=== PATIENT | female | born 1935 | race Caucasian/White ===

== ENCOUNTER 2021-10-30 07:42 | Emergency (ER) | payer OTHER ==
--- OUTSIDE RECORDS SUMMARY | 2021-10-30 07:48 | XMS REPORT | Continuity of Care Document ---
:1935 Author Organization [facility] t Address [address] [place] [address] Care Team Providers Name Role Phone Aleisha GREENBERG, Mindi Primary Care Physician Marcus RN, T Attending Clinician Unavailable Only, Db Test Attending Clinician Unavailable Sonny LING Attending Clinician SONNY Attending Clinician Unavailable Doctor Unassigned, Name Attending Clinician Unavailable Mindi MORAES Attending Clinician Unavailable Mindi REYES Attending Clinician Unavailable Uzma Nino Attending Clinician Amy PHD, L Attending Clinician Amita REYES Attending Clinician Unavailable Aleisha GREENBERG, Mindi Attending Clinician Miguel A Odell MD Attending Clinician MIGUEL A ODELL Attending Clinician Unavailable MIGUEL A ODELL Attending Clinician Unavailable Lab, Fam Pob I Attending Clinician Unavailable Maria E CAMARAP, F Attending Clinician Levar JJSW, D Attending Clinician Singer LUGO Attending Clinician Xavier CHRISTOPHER Attending Clinician Unavailable Kamryn LUGO Attending Clinician KAMRYN Attending Clinician Unavailable KAMRYN Attending Clinician Unavailable Anene EAR SPECIALIST Attending Clinician DR Lavern IBARRA Attending Clinician Unavailable DR Ruben HONEYCUTT Attending Clinician Unavailable KAMRYN Admitting Clinician Unavailable DR Lavern IBARRA Admitting Clinician Unavailable DR Ruben HONEYCUTT Admitting Clinician Unavailable Payers Payer Name Policy Type Policy Number Effective Date Expiration Date Lavern crouch [employer] MEDICARE ADV [id number] 2018 00:00:00 [employer] TRADITIONAL [id number] 2016 00:00:00 Problems Condition Condition Condition Status Onset Resolution Last Treating Co mments Source Name Details Category Date Date Treatment Clinician Date Vitamin D Vitamin D Disease Active Uni vers deficiency deficiency 5-12 it y of 00:00: [place] [facility] Hyperchole Hyperchole Disease Active U nivers sterolemia sterolemia 5-12 it y of 00:00: [place] 00 [facility] Dementia Dementia Disease Active Unive rs without without 5-09 ity of behavioral behavioral 00:[place] disturbanc disturbanc 00 Me dical e, e, Branch unspecifie unspecifie d dementia d dementia type type Cerebrovas Cerebrovas Disease Active U nivers cular cular 5-05 ity of small small 00:00: [place] vessel vessel 00 Medical disease disease Branch Malignant Malignant Disease Active Uni vers neoplasm neoplasm 9-17 ity of of lung of lung 00:00: [place] 00 Medical [facility] Pancreas Pancreas Disease Active Unive rs cyst cyst 8-01 ity of 00:00: [place] 00 Medical [facility] Lesion of Lesion of Disease Active Uni vers pancreas pancreas 8-01 ity of 00:00: [place] 00 [facility] Fatty Fatty Disease Active Univers liver liver 7-26 ity of 00:00: [place] 00 [facility] Elevated Elevated Disease Active Unive rs lipase lipase 7-15 ity of 00:00: [place] 00 [facility] History of History of Disease Active U nivers lung lung 7-15 ity of cancer cancer 00:00: [place] 00 [facility] Abnormal Abnormal Disease Active Unive rs chest CT chest CT 7-15 ity of 00:00: [place] 00 [facility] Adjustment Adjustment Disease Active 2018- U nivers insomnia insomnia 7-15 ity of 00:00: [place] 00 [facility] Memory Memory Disease Active Univers disturbanc disturbanc 7-15 it y of e e 00:00: [place] [facility] Palpitatio Palpitatio Disease Active U nivers ns ns 7-15 ity of 00:00: [place] [facility] Elevated Elevated Disease Active Unive rs lipase lipase 7-15 ity of 00:00: [place] [facility] Abnormal Abnormal Disease Active Unive rs chest CT chest CT 7-15 ity of 00:00: [place] [facility] Adjustment Adjustment Disease Active U nivers insomnia insomnia 7-15 ity of 00:00: [place] [facility] History of History of Disease Active U nivers lung lung 7-15 ity of cancer cancer 00:00: [place] [facility] Essential Essential Disease Active Uni vers hypertensi hypertensi 5-28 it y of on on 00:00: [place] [address] Medical Branch Dizziness Dizziness Disease Resolve 2019-04-18 2019-04-19 Univers d 03-01 00:00:00 04:34:46 ity of 00:00: [place] [facility] UTI UTI Disease Resolve 2019-04-18 2019-04-19 Univers (urinary (urinary d 03-01 00:00:00 04:34:38 it y of tract tract 00:00: [place] infection) infection) 00 Tn dical Branch Allergies, Adverse Reactions, Alerts Allergy Allergy Status Severity Reaction(s) Onset Inactive Treating Comm ents Source Name Type Date Date Clinician Gemiflox Propensi Active Anaphylaxis U nivers acin ty to 9-17 ity of adverse 00:00: [place] reaction 00 Medical s Branch GEMIFLOX DRUG Active High Anaphylaxis Uni vers ACIN INGREDI 9-17 ity of 00:00: [place] [address] Medical Branch NO KNOWN Drug Active Univers ALLERGIE Class ity of [facility] Social History Social Habit Start Date Stop Date Quantity Comments Source Exposure to Not sure [facility] SARS-CoV-2 [place] [facility] (event) Branch Alcohol intake 2021-02-13 2021-02-13 Current University of 00:00:00 00:00:00 non-drinker of [facility] alcohol Branch (finding) Tobacco use and 2019-03-01 2019-03-01 Never used Universit y of exposure 00:00:00 00:00:00 [facility] Sex Ass[birth year] At [birth year] Universit y of 00:00:00 00:00:00 [facility] Smoking Status Start Date Stop Date Source Never smoker [facility] Medications Ordered Filled Start Stop Current Ordering Indication Dosage Frequency Signature Comments Components Source Medication Medication Date Date Medication? Clinician (SIG) Name Name cholecalcif Yes [id number] 1000U Take 1 Univers ajith, 5-12 tablet by ity of vitamin D3, 00:00: mouth [place] (VITAMIN 00 daily. Medical D3) 25 mcg Take with Bran ch (1,000 food. unit) tablet rosuvastati Yes [id number] 10mg Take 1 Univers n 10 mg 5-12 tablet by ity of tablet 00:00: mouth at [place] 00 bedtime. Medical Branch cholecalcif Yes [id number] 1000U Take 1 Univers ajith, 5-12 tablet by ity of vitamin D3, 00:00: mouth [place] (VITAMIN 00 daily. Medical D3) 25 mcg Take with Bran ch (1,000 food. unit) tablet rosuvastati Yes [id number] 10mg Take 1 Univers n 10 mg 5-12 tablet by ity of tablet 00:00: mouth at [place] [address] bedtime. Medical Branch cholecalcif Yes [id number] 1000U Take 1 Univers ajith, 5-12 tablet by ity of vitamin D3, 00:00: mouth [place] (VITAMIN 00 daily. Medical D3) 25 mcg Take with Bran ch (1,000 food. unit) tablet rosuvastati Yes [id number] 10mg Take 1 Univers n 10 mg 5-12 tablet by ity of tablet 00:00: mouth at [place] [address] bedtime. Medical Branch cholecalcif Yes [id number] 1000U Take 1 Univers ajith, 5-12 tablet by ity of vitamin D3, 00:00: mouth [place] (VITAMIN 00 daily. Medical D3) 25 mcg Take with Bran ch (1,000 food. unit) tablet rosuvastati Yes [id number] 10mg Take 1 Univers n 10 mg 5-12 tablet by ity of tablet 00:00: mouth at [place] [address] bedtime. Medical Branch cholecalcif Yes [id number] 1000U Take 1 Univers ajith, 5-12 tablet by ity of vitamin D3, 00:00: mouth [place] (VITAMIN 00 daily. Medical D3) 25 mcg Take with Bran ch (1,000 food. unit) tablet rosuvastati 0 Yes [id number] 10mg Take 1 Univers n 10 mg 5-12 tablet by ity of tablet 00:00: mouth at [place] 00 bedtime. Medical Branch cholecalcif 0 Yes [id number] 1000U Take 1 Univers ajith, 5-12 tablet by ity of vitamin D3, 00:00: mouth [place] (VITAMIN 00 daily. Medical D3) 25 mcg Take with Bran ch (1,000 food. unit) tablet rosuvastati 0 Yes [id number] 10mg Take 1 Univers n 10 mg 5-12 tablet by ity of tablet 00:00: mouth at [place] 00 bedtime. Medical Branch cholecalcif Yes [id number] 1000U Take 1 Univers ajith, 5-12 tablet by ity of vitamin D3, 00:00: mouth [place] (VITAMIN 00 daily. Medical D3) 25 mcg Take with Bran ch (1,000 food. unit) tablet rosuvastati Yes [id number] 10mg Take 1 Univers n 10 mg 5-12 tablet by ity of tablet 00:00: mouth at [place] 00 bedtime. Medical Branch cholecalcif 0 Yes [id number] 1000U Take 1 Univers ajith, 5-12 tablet by ity of vitamin D3, 00:00: mouth [place] (VITAMIN 00 daily. Medical D3) 25 mcg Take with Bran ch (1,000 food. unit) tablet rosuvastati 0 Yes [id number] 10mg Take 1 Univers n 10 mg 5-12 tablet by ity of tablet 00:00: mouth at [place] 00 bedtime. Medical Branch cholecalcif 0 Yes [id number] 1000U Take 1 Univers ajith, 5-12 tablet by ity of vitamin D3, 00:00: mouth [place] (VITAMIN 00 daily. Medical D3) 25 mcg Take with Bran ch (1,000 food. unit) tablet rosuvastati 0 Yes [id number] 10mg Take 1 Univers n 10 mg 5-12 tablet by ity of tablet 00:00: mouth at [place] 00 bedtime. Medical Branch metoprolol Yes 25mg Take 25 mg U nivers succinate 5-11 by mouth ity of XL 25 mg 24 18:19: [place]. [place] tablet 17 [facility] metoprolol Yes 25mg Take 25 mg U nivers succinate 5-11 by mouth ity of XL 25 mg 24 18:19: [place]. [place] 17 [facility] metoprolol Yes 25mg Take 25 mg U nivers succinate 5-11 by mouth ity of XL 25 mg 24 18:19: daily. [place] tablet 17 [facility] metoprolol Yes 25mg Take 25 mg U nivers succinate 5-11 by mouth ity of XL 25 mg 24 18:19: daily. [place] tablet 17 [facility] metoprolol Yes 25mg Take 25 mg U nivers succinate 5-11 by mouth ity of XL 25 mg 24 18:19: daily. [place] tablet 17 [facility] metoprolol Yes 25mg Take 25 mg U nivers succinate 5-11 by mouth ity of XL 25 mg 24 18:19: daily. [place] tablet 17 [facility] metoprolol Yes 25mg Take 25 mg U nivers succinate 5-11 by mouth ity of XL 25 mg 24 18:19: daily. [place] tablet 17 [facility] metoprolol Yes 25mg Take 25 mg U nivers succinate 5-11 by mouth ity of XL 25 mg 24 18:19: daily. [place] tablet 17 [facility] metoprolol Yes 25mg Take 25 mg U nivers succinate 5-11 by mouth ity of XL 25 mg 24 13:19: daily. [place] tablet 17 [facility] metoprolol Yes 25mg Take 25 mg U nivers succinate 5-11 by mouth ity of XL 25 mg 24 13:19: daily. [place] tablet 17 [facility] metoprolol Yes 25mg Take 25 mg U nivers succinate 5-11 by mouth ity of XL 25 mg 24 13:19: daily. [place] tablet 17 [facility] rivastigmin Yes [id number] 1{patch Apply 1 Univers e 4.6 mg/24 5-11 } Patch to ity of hour patch 00:00: skin [place] 00 daily. Medical Branch rivastigmin Yes [id number] 1{patch Apply 1 Univers e 4.6 mg/24 5-11 } Patch to ity of hour patch 00:00: skin [place] 00 daily. Medical Branch rivastigmin Yes [id number] 1{patch Apply 1 Univers e 4.6 mg/24 5-11 } Patch to ity of hour patch 00:00: skin [place] 00 daily. Medical Branch rivastigmin Yes [id number] 1{patch Apply 1 Univers e 4.6 mg/24 5-11 } Patch to ity of hour patch 00:00: skin [place] 00 daily. Medical Branch rivastigmin Yes [id number] 1{patch Apply 1 Univers e 4.6 mg/24 5-11 } Patch to ity of hour patch 00:00: skin [place] 00 daily. Medical Branch rivastigmin Yes [id number] 1{patch Apply 1 Univers e 4.6 mg/24 5-11 } Patch to ity of hour patch 00:00: skin [place] 00 daily. Medical Branch rivastigmin Yes [id number] 1{patch Apply 1 Univers e 4.6 mg/24 5-11 } Patch to ity of hour patch 00:00: skin [place] 00 daily. Medical Branch rivastigmin Yes [id number] 1{patch Apply 1 Univers e 4.6 mg/24 5-11 } Patch to ity of hour patch 00:00: skin [place] 00 daily. Medical Branch rivastigmin Yes [id number] 1{patch Apply 1 Univers e 4.6 mg/24 5-11 } Patch to ity of hour patch 00:00: skin [place] 00 daily. Medical Branch rivastigmin Yes [id number] 1{patch Apply 1 Univers e 4.6 mg/24 5-11 } Patch to ity of hour patch 00:00: skin [place] 00 daily. Medical Branch rivastigmin Yes [id number] 1{patch Apply 1 Univers e 4.6 mg/24 5-11 } Patch to ity of hour patch 00:00: skin [place] 00 daily. Medical Branch acetaminoph 2020- No 1000mg 1,000 mg, Univers en 01-28 Oral, ity of (TYLENOL) 17:15: 16:19 ONCE, 1 [place] tablet 00 :[place] dose, Mon Medical 1,000 mg 01/28/21 at [facility] h 1215, Routine ibuprofen Yes [id number] 600mg Take 1 U nivers 600 mg - tablet by ity of tablet 00:00: mouth [place] 00 every 6 Medical (six) Branch hours as needed for Pain (scale 4-6). ibuprofen Yes [id number] 600mg Take 1 U nivers 600 mg - tablet by ity of tablet 00:00: mouth [place] 00 every 6 Medical (six) Branch hours as needed for Pain (scale 4-6). ibuprofen Yes [id number] 600mg Take 1 U nivers 600 mg -26 tablet by ity of tablet 00:00: mouth [place] 00 every 6 Medical (six) Branch hours as needed for Pain (scale 4-6). ibuprofen 2020- No [id number] 600mg Take 1 Univers 600 mg 01-28 tablet by ity of tablet 00:00: 00:00 mouth [place] 00 :00 every 6 Medical (six) Branch hours as needed for Pain (scale 4-6). ibuprofen 2020- No [id number] 600mg Take 1 Univers 600 mg 01-28- tablet by ity of tablet 00:00: 00:00 mouth [place] 00 :00 every 6 Medical (six) Branch hours as needed for Pain (scale 4-6). methocarbam Yes 500mg 500 mg, Un daina oL -18 Oral, QID, ity of (ROBAXIN) 17:00: First dose [place] tablet 500 00 on [facility] mg 12/20/20 at Branch 1200, Until Discontinu ed, Routine ketorolac 2020- No 30mg 30 mg, Unive rs (TORADOL) 18 03-18 Intramuscu ity of injection 16:30: 15:25 [place], ONCE, [place] 30 mg 00 :00 1 dose, Medical [place] Branch 12/20/20 at 1130, SHANTA
Fa culty member approving Restricted medication : PAUL THOMAS naproxen 2020-0 Yes [id number] 550mg Take 1 Un dain[place] sodium 3-18 tablet by ity of (ANAPROX 00:00: mouth 2 [place] DS) 550 mg 00 (two) Medical tablet times Branch daily with meals. naproxen 2020-0 Yes [id number] 550mg Take 1 Un dain[place] sodium 3-18 tablet by ity of (ANAPROX 00:00: mouth 2 [place] DS) 550 mg 00 (two) Medical tablet times Branch daily with meals. naproxen 0 Yes [id number] 550mg Take 1 Un dain[place] sodium 3-18 tablet by ity of (ANAPROX 00:00: mouth 2 [place] DS) 550 mg 00 (two) Medical tablet times Branch daily with meals. naproxen 0 Yes [id number] 550mg Take 1 Un daina sodium 3-18 tablet by ity of (ANAPROX 00:00: mouth 2 [place] DS) 550 mg 00 (two) Medical tablet times Branch daily with meals. naproxen 0 Yes [id number] 550mg Take 1 Un dain[place] sodium 3-18 tablet by ity of (ANAPROX 00:00: mouth 2 [place] DS) 550 mg 00 (two) Medical tablet times Branch daily with meals. naproxen 0 Yes [id number] 550mg Take 1 Un diana sodium 3-18 tablet by ity of (ANAPROX 00:00: mouth 2 [place] DS) 550 mg 00 (two) Medical tablet times Branch daily with meals. naproxen 0 Yes [id number] 550mg Take 1 Un daina sodium 3-18 tablet by ity of (ANAPROX 00:00: mouth 2 [place] DS) 550 mg 00 (two) Medical tablet times Branch daily with meals. naproxen 2020-0 Yes [id number] 550mg Take 1 Un daina sodium 3-18 tablet by ity of (ANAPROX 00:00: mouth 2 [place] DS) 550 mg 00 (two) Medical tablet times Branch daily with meals. naproxen 0 Yes [id number] 550mg Take 1 Un daina sodium 3-18 tablet by ity of (ANAPROX 00:00: mouth 2 [place] DS) 550 mg 00 (two) Medical tablet times Branch daily with meals. naproxen 2020-0 Yes [id number] 550mg Take 1 Un daina sodium 3-18 tablet by ity of (ANAPROX 00:00: mouth 2 [place] DS) 550 mg 00 (two) Medical tablet times Branch daily with meals. naproxen 2020- No [id number] 550mg Take 1 U nivers sodium 3-18 04-29 tablet by ity of (ANAPROX 00:00: 00:00 mouth 2 [place] DS) 550 mg 00 :00 (two) Medical tablet times Branch daily with meals. naproxen 2020- No [id number] 550mg Take 1 U nivers sodium 3-18 04-29 tablet by ity of (ANAPROX 00:00: 00:00 mouth 2 [place] DS) 550 mg 00 :00 (two) Medical tablet times Branch daily with meals. methocarbam 2020- No [id number] 500mg Take 1 Univers oL 500 mg 3-18 03-24 tablet by ity of tablet 00:00: 04:59 mouth 3 [place] 00 :00 (three) Medical times Branch daily for 5 days. benzonatate 2019-2019- No [id number] 100mg Take 1 Univers (TESSALON 1 02-11 capsule by ity of GERTRUDE) 100 00:00: 05:59 mouth 3 [place] mg capsule 00 :00 (three) Medica l times Branch daily for 14 days. benzonatate 2019-2019- No [id number] 100mg Take 1 Univers (TESSALON 1-27 02-11 capsule by itdick of GERTRUDE) 100 00:00: 05:59 mouth 3 [place] mg capsule 00 :00 (three) Medica l times Branch daily for 14 days. benzonatate 2019-2019- No [id number] 100mg Take 1 Univers (TESSALON 1-27 02-11 capsule by itdick of GERTRUDE) 100 00:00: 05:59 mouth 3 [place] mg capsule 00 :00 (three) Medica l times Branch daily for 14 days. methylPREDN 2019-2019- No [id number] Take by [facility] [place] [facility] 4 10-31 02-03 mouth ity of mg tablets 00:00: 05:59 SEE-INSTRU [place] 00 :00 CTIONS for Medical 6 days. Branch follow package directions methylPREDN 2019-0 2020- No [id number] Take by Univers ISolone 4 10-31 mouth ity of mg tablets 00:00: 05:59 SEE-INSTRU [place] 00 :00 CTIONS for Medical 6 days. Branch follow package directions methylPREDN 2020- No [id number] Take by Univers ISolone 4 10-31 mouth ity of mg tablets 00:00: 05:59 SEE-INSTRU [place] 00 :00 CTIONS for Medical 6 days. Branch follow package directions magnesium 2018- Yes [id number] 1{tbl} Take 1 Univers oxide 400 9-18 tablet by ity o f mg 00:00: mouth [place] magnesium 00 daily. Medical Tab Branch magnesium 2018- Yes [id number] 1{tbl} Take 1 Univers oxide 400 9-18 tablet by ity o f mg 00:00: mouth [place] magnesium 00 daily. Medical Tab Branch magnesium 2018- Yes [id number] 1{tbl} Take 1 Univers oxide 400 9-18 tablet by ity o f mg 00:00: mouth [place] magnesium 00 daily. Medical Tab Branch magnesium 2018- Yes [id number] 1{tbl} Take 1 Univers oxide 400 9-18 tablet by ity o f mg 00:00: mouth [place] magnesium 00 daily. Medical Tab Branch magnesium 2018- Yes [id number] 1{tbl} Take 1 Univers oxide 400 9-18 tablet by ity o f mg 00:00: mouth [place] magnesium 00 daily. Medical Tab Branch magnesium 2018- Yes [id number] 1{tbl} Take 1 Univers oxide 400 9-18 tablet by ity o f mg 00:00: mouth [place] magnesium 00 daily. Medical Tab Branch magnesium 2018-0 Yes [id number] 1{tbl} Take 1 Univers oxide 400 9-18 tablet by ity o f mg 00:00: mouth [place] magnesium 00 daily. Medical Tab Branch magnesium 2019-0 Yes [id number] 1{tbl} Take 1 Univers oxide 400 9-18 tablet by ity o f mg 00:00: mouth [place] magnesium 00 daily. Medical Tab Branch magnesium 2018-0 Yes [id number] 1{tbl} Take 1 Univers oxide 400 9-18 tablet by ity o f mg 00:00: mouth [place] magnesium 00 daily. Medical Tab Branch magnesium 2018-0 Yes [id number] 1{tbl} Take 1 Univers oxide 400 9-18 tablet by ity o f mg 00:00: mouth [place] magnesium 00 daily. Medical Tab Branch magnesium 2019-0 Yes [id number] 1{tbl} Take 1 Univers oxide 400 9-18 tablet by ity o f mg 00:00: mouth [place] magnesium 00 daily. Medical Tab Branch magnesium 2018-0 Yes [id number] 1{tbl} Take 1 Univers oxide 400 9-18 tablet by ity o f mg 00:00: mouth [place] magnesium 00 daily. Medical Tab Branch magnesium 2019-0 Yes [id number] 1{tbl} Take 1 Univers oxide 400 9-18 tablet by ity o f mg 00:00: mouth [place] magnesium 00 daily. Medical Tab Branch magnesium 2019-0 Yes [id number] 1{tbl} Take 1 Univers oxide 400 9-18 tablet by ity o f mg 00:00: mouth [place] magnesium 00 daily. Medical Tab Branch magnesium 2018-0 Yes [id number] 1{tbl} Take 1 Univers oxide 400 9-18 tablet by ity o f mg 00:00: mouth [place] magnesium 00 daily. Medical Tab Branch magnesium 2018-0 Yes [id number] 1{tbl} Take 1 Univers oxide 400 9-18 tablet by ity o f mg 00:00: mouth [place] magnesium 00 daily. Medical Tab Branch magnesium 2018-0 Yes [id number] 1{tbl} Take 1 Univers oxide 400 9-18 tablet by ity o f mg 00:00: mouth [place] magnesium 00 daily. Medical Tab Branch magnesium 2019-0 Yes [id number] 1{tbl} Take 1 Univers oxide 400 9-18 tablet by ity o f mg 00:00: mouth [place] magnesium 00 daily. Medical Tab Branch magnesium 2019-0 Yes [id number] 1{tbl} Take 1 Univers oxide 400 9-18 tablet by ity o f mg 00:00: mouth [place] magnesium 00 daily. Medical Tab Branch magnesium 2019-0 Yes [id number] 1{tbl} Take 1 Univers oxide 400 9-18 tablet by ity o f mg 00:00: mouth [place] magnesium 00 daily. Medical Tab Branch magnesium 2019-0 Yes [id number] 1{tbl} Take 1 Univers oxide 400 9-18 tablet by ity o f mg 00:00: mouth [place] magnesium 00 daily. Medical Tab Branch magnesium 2019-0 Yes [id number] 1{tbl} Take 1 Univers oxide 400 9-18 tablet by ity o f mg 00:00: mouth [place] magnesium 00 daily. [facility] Branch magnesium 2018- Yes [id number] 1{tbl} Take 1 Univers oxide 400 9-18 tablet by ity o f mg 00:00: mouth [place] magnesium 00 daily. [facility] Branch magnesium 2018- Yes [id number] 1{tbl} Take 1 Univers oxide 400 9-18 tablet by ity o f mg 00:00: mouth [place] magnesium 00 daily. [facility] Branch magnesium 2018-2020- No [id number] 1{tbl} Take 1 Univers oxide 400 9-18 04-29 tablet by ity of mg 00:00: 00:00 mouth [place] magnesium 00 :00 daily. [facility] Branch magnesium 2018-2020- No [id number] 1{tbl} Take 1 Univers oxide 400 9-18 04-29 tablet by ity of mg 00:00: 00:00 mouth [place] magnesium 00 :00 daily. [facility] Branch traZODONE Yes [id number] 25mg Take 0.5-1 Univers 50 mg 7-15 tablets by ity of tablet 00:00: mouth at [place] [address] bedtime. [facility] traZODONE Yes [id number] 25mg Take 0.5-1 Univers 50 mg 7-15 tablets by ity of tablet 00:00: mouth at [place] 00 bedtime. [facility] traZODONE Yes [id number] 25mg Take 0.5-1 Univers 50 mg 7-15 tablets by ity of tablet 00:00: mouth at [place] 00 bedtime. [facility] traZODONE 2018- Yes [id number] 25mg Take 0.5-1 Univers 50 mg 7-15 tablets by ity of tablet 00:00: mouth at [place] 00 bedtime. [facility] Branch traZODONE Yes [id number] 25mg Take 0.5-1 Univers 50 mg 7-15 tablets by ity of tablet 00:00: mouth at [place] 00 bedtime. [facility] traZODONE 2018- Yes [id number] 25mg Take 0.5-1 Univers 50 mg 7-15 tablets by ity of tablet 00:00: mouth at [place] [address] bedtime. [facility] traZODONE 2018- Yes [id number] 25mg Take 0.5-1 Univers 50 mg 7-15 tablets by ity of tablet 00:00: mouth at [place] [address] bedtime. [facility] Branch traZODONE 2019-0 Yes [id number] 25mg Take 0.5-1 Univers 50 mg 7-15 tablets by ity of tablet 00:00: mouth at [place] [address] bedtime. [facility] Branch traZODONE 2018-0 Yes [id number] 25mg Take 0.5-1 Univers 50 mg 7-15 tablets by ity of tablet 00:00: mouth at [place] [address] bedtime. [facility] Branch traZODONE 2018-0 Yes [id number] 25mg Take 0.5-1 Univers 50 mg 7-15 tablets by ity of tablet 00:00: mouth at [place] [address] bedtime. [facility] Branch traZODONE 0 Yes [id number] 25mg Take 0.5-1 Univers 50 mg 7-15 tablets by ity of tablet 00:00: mouth at [place] [address] bedtime. [facility] traZODONE 2018-0 Yes [id number] 25mg Take 0.5-1 Univers 50 mg 7-15 tablets by ity of tablet 00:00: mouth at [place] [address] bedtime. [facility] Branch traZODONE 2018-0 Yes [id number] 25mg Take 0.5-1 Univers 50 mg 7-15 tablets by ity of tablet 00:00: mouth at [place] [address] bedtime. [facility] Branch traZODONE 2018-0 Yes [id number] 25mg Take 0.5-1 Univers 50 mg 7-15 tablets by ity of tablet 00:00: mouth at [place] [address] bedtime. [facility] Branch traZODONE 2018-0 Yes [id number] 25mg Take 0.5-1 Univers 50 mg 7-15 tablets by ity of tablet 00:00: mouth at [place] [address] bedtime. [facility] Branch traZODONE 2018-0 Yes [id number] 25mg Take 0.5-1 Univers 50 mg 7-15 tablets by ity of tablet 00:00: mouth at [place] [address] bedtime. [facility] Branch traZODONE 2018-0 Yes [id number] 25mg Take 0.5-1 Univers 50 mg 7-15 tablets by ity of tablet 00:00: mouth at [place] [address] bedtime. [facility] Branch traZODONE 2018-0 Yes [id number] 25mg Take 0.5-1 Univers 50 mg 7-15 tablets by ity of tablet 00:00: mouth at [place] [address] bedtime. [facility] Branch traZODONE 2019-0 Yes [id number] 25mg Take 0.5-1 Univers 50 mg 7-15 tablets by ity of tablet 00:00: mouth at [place] [address] bedtime. [facility] Branch traZODONE 2018-0 Yes [id number] 25mg Take 0.5-1 Univers 50 mg 7-15 tablets by ity of tablet 00:00: mouth at [place] [address] bedtime. [facility] Branch traZODONE 2018-0 Yes [id number] 25mg Take 0.5-1 Univers 50 mg 7-15 tablets by ity of tablet 00:00: mouth at [place] [address] bedtime. [facility] traZODONE 2018-0 Yes [id number] 25mg Take 0.5-1 Univers 50 mg 7-15 tablets by ity of tablet 00:00: mouth at [place] [address] bedtime. [facility] traZODONE 2018-0 Yes [id number] 25mg Take 0.5-1 Univers 50 mg 7-15 tablets by ity of tablet 00:00: mouth at [place] [address] bedtime. [facility] traZODONE 2018-0 Yes [id number] 25mg Take 0.5-1 Univers 50 mg 7-15 tablets by ity of tablet 00:00: mouth at [place] [address] bedtime. [facility] traZODONE 2018-0 Yes [id number] 25mg Take 0.5-1 Univers 50 mg 7-15 tablets by ity of tablet 00:00: mouth at [place] [address] bedtime. [facility] traZODONE 2018-0 Yes [id number] 25mg Take 0.5-1 Univers 50 mg 7-15 tablets by ity of tablet 00:00: mouth at [place] [address] bedtime. [facility] traZODONE 2018-0 Yes [id number] 25mg Take 0.5-1 Univers 50 mg 7-15 tablets by ity of tablet 00:00: mouth at [place] [address] bedtime. [facility] traZODONE 2019-0 Yes [id number] 25mg Take 0.5-1 Univers 50 mg 7-15 tablets by ity of tablet 00:00: mouth at [place] [address] bedtime. [facility] traZODONE 2018-0 Yes [id number] 25mg Take 0.5-1 Univers 50 mg 7-15 tablets by ity of tablet 00:00: mouth at [place] [address] bedtime. [facility] traZODONE 2018-0 Yes [id number] 25mg Take 0.5-1 Univers 50 mg 7-15 tablets by ity of tablet 00:00: mouth at [place] [address] bedtime. [facility] traZODONE 2018-0 Yes [id number] 25mg Take 0.5-1 Univers 50 mg 7-15 tablets by ity of tablet 00:00: mouth at [place] [address] bedtime. [facility] traZODONE 0 Yes [id number] 25mg Take 0.5-1 Univers 50 mg 7-15 tablets by ity of tablet 00:00: mouth at [place] [address] bedtime. [facility] traZODONE 0 Yes [id number] 25mg Take 0.5-1 Univers 50 mg 7-15 tablets by ity of tablet 00:00: mouth at [place] [address] bedtime. [facility] traZODONE 2018-0 1- No [id number] 25mg Take 0.5-1 Univers 50 mg 7-15 04-29 tablets by ity of tablet 00:00: 00:00 mouth at [place] 00 :00 bedtime. [facility] traZODONE 2018-0 2020- No [id number] 25mg Take 0.5-1 Univers 50 mg 7-15 04-29 tablets by ity of tablet 00:00: 00:00 mouth at [place] 00 :00 bedtime. [facility] metoprolol 0 Yes 50mg Take 50 mg U nivers succinate 7-11 by mouth. ity o f XL 50 mg 24 00:00: [place] hr tablet 00 [facility] metoprolol 0 Yes 50mg Take 50 mg U nivers succinate 7-11 by mouth. ity o f XL 50 mg 24 00:00: [place] hr tablet 00 [facility] metoprolol 0 Yes 50mg Take 50 mg U nivers succinate 7-11 by mouth. ity o f XL 50 mg 24 00:00: [place] hr tablet 00 [facility] metoprolol 0 Yes 50mg Take 50 mg U nivers succinate 7-11 by mouth. ity o f XL 50 mg 24 00:00: [place] hr tablet 00 [facility] metoprolol 0 Yes 50mg Take 50 mg U nivers succinate 7-11 by mouth. ity o f XL 50 mg 24 00:00: [place] hr tablet 00 [facility] metoprolol 2019-0 Yes 50mg Take 50 mg U nivers succinate 7-11 by mouth. ity o f XL 50 mg 24 00:00: [place] hr tablet 00 [facility] metoprolol 2019-0 Yes 50mg Take 50 mg U nivers succinate 7-11 by mouth. ity o f XL 50 mg 24 00:00: [place] hr tablet [facility] metoprolol 2019-0 Yes 50mg Take 50 mg U nivers succinate 7-11 by mouth. ity o f XL 50 mg 24 00:00: [place] hr tablet [facility] metoprolol 2019-0 Yes 50mg Take 50 mg U nivers succinate 7-11 by mouth. ity o f XL 50 mg 24 00:00: [place] hr tablet [facility] metoprolol 2019-0 Yes 50mg Take 50 mg U nivers succinate 7-11 by mouth. ity o f XL 50 mg 24 00:00: [place] hr tablet [facility] metoprolol 2019-0 Yes 50mg Take 50 mg U nivers succinate 7-11 by mouth. ity o f XL 50 mg 24 00:00: [place] hr tablet [facility] metoprolol 2019-0 Yes 50mg Take 50 mg U nivers succinate 7-11 by mouth. ity o f XL 50 mg 24 00:00: [place] hr tablet [facility] metoprolol 2019-0 Yes 50mg Take 50 mg U nivers succinate 7-11 by mouth. ity o f XL 50 mg 24 00:00: [place] hr tablet [facility] metoprolol 2019-0 Yes 50mg Take 50 mg U nivers succinate 7-11 by mouth. ity o f XL 50 mg 24 00:00: [place] hr tablet [facility] metoprolol 2019-0 Yes 50mg Take 50 mg U nivers succinate 7-11 by mouth. ity o f XL 50 mg 24 00:00: [place] hr tablet 00 [facility] metoprolol 2019-0 Yes 50mg Take 50 mg U nivers succinate 7-11 by mouth. ity o f XL 50 mg 24 00:00: [place] hr tablet 00 [facility] metoprolol 2019-0 Yes 50mg Take 50 mg U nivers succinate 7-11 by mouth. ity o f XL 50 mg 24 00:00: [place] hr tablet 00 [facility] metoprolol 2019-0 Yes 50mg Take 50 mg U nivers succinate 7-11 by mouth. ity o f XL 50 mg 24 00:00: [place] hr tablet 00 [facility] metoprolol Yes 50mg Take 50 mg U nivers succinate 7-11 by mouth. ity o f XL 50 mg 24 00:00: [place] hr tablet 00 [facility] metoprolol Yes 50mg Take 50 mg U nivers succinate 7-11 by mouth. ity o f XL 50 mg 24 00:00: [place] hr tablet [facility] metoprolol Yes 50mg Take 50 mg U nivers succinate 7-11 by mouth. ity o f XL 50 mg 24 00:00: [place] hr tablet 00 [facility] metoprolol Yes 50mg Take 50 mg U nivers succinate 7-11 by mouth. ity o f XL 50 mg 24 00:00: [place] hr tablet 00 [facility] metoprolol Yes 50mg Take 50 mg U nivers succinate 7-11 by mouth. ity o f XL 50 mg 24 00:00: [place] hr tablet [facility] metoprolol 2020- No 50mg Take 50 mg Univers succinate 7-11 01-31 by mouth. ity of XL 50 mg 24 00:00: 00:00 [place] hr tablet 00 : [facility] metoprolol 2020- No 50mg Take 50 mg Univers succinate 7-11 - by mouth. ity of XL 50 mg 24 00:00: 00:00 [place] hr tablet 00 :00 [facility] No known No Univers medications ity [facility] [place] [facility] No known No Univers medications ity [facility] [place] [facility] No known No [facility] medications ity [facility] [place] [facility] No known No [facility] medications ity [facility] [place] [facility] No known No Univers medications ity [facility] [place] [facility] No known No Univers medications ity [facility] [place] [facility] No known No [facility] Ordered Filled Immunization Date Status Comments [facility] e Immunization Name Name SARS-COV-2 COVID-19 2020-11-14 Completed Unive rsity of PFIZER VACCINE 00:00:00 [facility] SARS-COV-2 COVID-19 2020-11-14 Completed Unive rsity of PFIZER VACCINE 00:00:00 [facility] SARS-COV-2 COVID-19 2020-11-14 Completed Unive rsity of PFIZER VACCINE 00:00:00 [facility] SARS-COV-2 COVID-19 2020-11-14 Completed Unive rsity of PFIZER VACCINE 00:00:00 [place] [facility] SARS-COV-2 COVID-19 2020-11-14 Completed Unive rsity of PFIZER VACCINE 00:00:00 [facility] SARS-COV-2 COVID-19 2020-11-14 Completed Unive rsity of PFIZER VACCINE 00:00:00 [facility] SARS-COV-2 COVID-19 2020-11-14 Completed Unive rsity of PFIZER VACCINE 00:00:00 [facility] SARS-COV-2 COVID-19 2020-11-14 Completed Unive rsity of PFIZER VACCINE 00:00:00 [facility] SARS-COV-2 COVID-19 2020-11-14 Completed Unive rsity of PFIZER VACCINE 00:00:00 [facility] SARS-COV-2 COVID-19 2020-11-14 Completed Unive rsity of PFIZER VACCINE 00:00:00 [facility] SARS-COV-2 COVID-19 2020-11-14 Completed Unive rsity of PFIZER VACCINE 00:00:00 [facility] SARS-COV-2 COVID-19 2020-11-14 Completed Unive rsity of PFIZER VACCINE 00:00:00 [facility] SARS-COV-2 COVID-19 2020-11-14 Completed Unive rsity of PFIZER VACCINE 00:00:00 [facility] SARS-COV-2 COVID-19 2020-11-14 Completed Unive rsity of PFIZER VACCINE 00:00:00 [facility] SARS-COV-2 COVID-19 2020-11-14 Completed Unive rsity of PFIZER VACCINE 00:00:00 [facility] SARS-COV-2 COVID-19 2020-11-14 Completed Unive rsity of PFIZER VACCINE 00:00:00 [facility] SARS-COV-2 COVID-19 2020-11-14 Completed Unive rsity of PFIZER VACCINE 00:00:00 [facility] SARS-COV-2 COVID-19 2020-11-14 Completed Unive rsity of PFIZER VACCINE 00:00:00 [facility] SARS-COV-2 COVID-19 2020-11-14 Completed Unive rsity of PFIZER VACCINE 00:00:00 [facility] SARS-COV-2 COVID-19 2020-11-14 Completed Unive rsity of PFIZER VACCINE 00:00:00 [facility] SARS-COV-2 COVID-19 2020-11-14 Completed Unive rsity of PFIZER VACCINE 00:00:00 [facility] SARS-COV-2 COVID-19 2020-11-14 Completed Unive rsity of PFIZER VACCINE 00:00:00 [facility] SARS-COV-2 COVID-19 2020-11-14 Completed Unive rsity of PFIZER VACCINE 00:00:00 [facility] SARS-COV-2 COVID-19 2020-11-14 Completed Unive rsity of PFIZER VACCINE 00:00:00 [facility] SARS-COV-2 COVID-19 2020-11-14 Completed Unive rsity of PFIZER VACCINE 00:00:00 [facility] SARS-COV-2 COVID-19 2020-11-14 Completed Unive rsity of PFIZER VACCINE 00:00:00 [facility] SARS-COV-2 COVID-19 2020-11-14 Completed Unive rsity of PFIZER VACCINE 00:00:00 [facility] SARS-COV-2 COVID-19 2020-11-14 Completed Unive rsity of PFIZER VACCINE 00:00:00 [facility] SARS-COV-2 COVID-19 2020-11-14 Completed Unive rsity of PFIZER VACCINE 00:00:00 [facility] SARS-COV-2 COVID-19 2020-11-14 Completed Unive rsity of PFIZER VACCINE 00:00:00 [facility] SARS-COV-2 COVID-19 2020-11-14 Completed Unive rsity of PFIZER VACCINE 00:00:00 [facility] SARS-COV-2 COVID-19 2020-11-14 Completed Unive rsity of PFIZER VACCINE 00:00:00 [facility] SARS-COV-2 COVID-19 2020-11-14 Completed Unive rsity of PFIZER VACCINE 00:00:00 [facility] SARS-COV-2 COVID-19 2020-11-14 Completed Unive rsity of PFIZER VACCINE 00:00:00 [facility] SARS-COV-2 COVID-19 2020-11-14 Completed Unive rsity of PFIZER VACCINE 00:00:00 [facility] SARS-COV-2 COVID-19 2020-11-14 Completed Unive rsity of PFIZER VACCINE 00:00:00 [facility] SARS-COV-2 COVID-19 2020-10-24 Completed Unive rsity of PFIZER VACCINE 00:00:00 [facility] SARS-COV-2 COVID-19 2020-10-24 Completed Unive rsity of PFIZER VACCINE 00:00:00 [facility] SARS-COV-2 COVID-19 2020-10-24 Completed Unive rsity of PFIZER VACCINE 00:00:00 [facility] SARS-COV-2 COVID-19 2020-10-24 Completed Unive rsity of PFIZER VACCINE 00:00:00 [facility] SARS-COV-2 COVID-19 2020-10-24 Completed Unive rsity of PFIZER VACCINE 00:00:00 [facility] SARS-COV-2 COVID-19 2020-10-24 Completed Unive rsity of PFIZER VACCINE 00:00:00 [facility] SARS-COV-2 COVID-19 2020-10-24 Completed Unive rsity of PFIZER VACCINE 00:00:00 [facility] SARS-COV-2 COVID-19 2020-10-24 Completed Unive rsity of PFIZER VACCINE 00:00:00 [facility] SARS-COV-2 COVID-19 2020-10-24 Completed Unive rsity of PFIZER VACCINE 00:00:00 [facility] SARS-COV-2 COVID-19 2020-10-24 Completed Unive rsity of PFIZER VACCINE 00:00:00 [facility] SARS-COV-2 COVID-19 2020-10-24 Completed Unive rsity of PFIZER VACCINE 00:00:00 [facility] SARS-COV-2 COVID-19 2020-10-24 Completed Unive rsity of PFIZER VACCINE 00:00:00 [facility] SARS-COV-2 COVID-19 2020-10-24 Completed Unive rsity of PFIZER VACCINE 00:00:00 [facility] SARS-COV-2 COVID-19 2020-10-24 Completed Unive rsity of PFIZER VACCINE 00:00:00 [facility] SARS-COV-2 COVID-19 2020-10-24 Completed Unive rsity of PFIZER VACCINE 00:00:00 [facility] SARS-COV-2 COVID-19 2020-10-24 Completed Unive rsity of PFIZER VACCINE 00:00:00 [facility] SARS-COV-2 COVID-19 2020-10-24 Completed Unive rsity of PFIZER VACCINE 00:00:00 [facility] SARS-COV-2 COVID-19 2020-10-24 Completed Unive rsity of PFIZER VACCINE 00:00:00 [facility] SARS-COV-2 COVID-19 2020-10-24 Completed Unive rsity of PFIZER VACCINE 00:00:00 [facility] SARS-COV-2 COVID-19 2020-10-24 Completed Unive rsity of PFIZER VACCINE 00:00:00 [facility] SARS-COV-2 COVID-19 2020-10-24 Completed Unive rsity of PFIZER VACCINE 00:00:00 [facility] SARS-COV-2 COVID-19 2020-10-24 Completed Unive rsity of PFIZER VACCINE 00:00:00 [facility] SARS-COV-2 COVID-19 2020-10-24 Completed Unive rsity of PFIZER VACCINE 00:00:00 [facility] SARS-COV-2 COVID-19 2020-10-24 Completed Unive rsity of PFIZER VACCINE 00:00:00 [facility] SARS-COV-2 COVID-19 2020-10-24 Completed Unive rsity of PFIZER VACCINE 00:00:00 [facility] SARS-COV-2 COVID-19 2020-10-24 Completed Unive rsity of PFIZER VACCINE 00:00:00 [facility] SARS-COV-2 COVID-19 2020-10-24 Completed Unive rsity of PFIZER VACCINE 00:00:00 [facility] SARS-COV-2 COVID-19 2020-10-24 Completed Unive rsity of PFIZER VACCINE 00:00:00 [facility] SARS-COV-2 COVID-19 2020-10-24 Completed Unive rsity of PFIZER VACCINE 00:00:00 [place] [facility] SARS-COV-2 COVID-19 2020-10-24 Completed Unive rsity of PFIZER VACCINE 00:00:00 [facility] SARS-COV-2 COVID-19 2020-10-24 Completed Unive rsity of PFIZER VACCINE 00:00:00 [facility] SARS-COV-2 COVID-19 2020-10-24 Completed Unive rsity of PFIZER VACCINE 00:00:00 [facility] SARS-COV-2 COVID-19 2020-10-24 Completed Unive rsity of PFIZER VACCINE 00:00:00 [facility] SARS-COV-2 COVID-19 2020-10-24 Completed Unive rsity of PFIZER VACCINE 00:00:00 [facility] SARS-COV-2 COVID-19 2020-10-24 Completed Unive rsity of PFIZER VACCINE 00:00:00 [facility] SARS-COV-2 COVID-19 2020-10-24 Completed Unive rsity of PFIZER VACCINE 00:00:00 [facility] Influenza High Dose 2020-08-01 Completed Unive rsity of [place] 00:00:00 [facility] Influenza High Dose 2020-08-01 Completed Unive rsity of [facility] 00:00:00 [facility] Influenza High Dose 2020-08-01 Completed Unive rsity of [place] 00:00:00 [facility] Influenza High Dose 2020-08-01 Completed Unive rsity of [place] 00:00:00 [facility] Influenza High Dose 2020-08-01 Completed Unive rsity of [place] 00:00:00 [facility] Influenza High Dose 2020-08-01 Completed Unive rsity of [place] 00:00:00 [facility] Influenza High Dose 2020-08-01 Completed Unive rsity of [place] 00:00:00 [facility] Influenza High Dose 2020-08-01 Completed Unive rsity of [facility] 00:00:00 [facility] Influenza High Dose 2020-08-01 Completed Unive rsity of [place] 00:00:00 [facility] Influenza High Dose 2020-08-01 Completed Unive rsity of [place] 00:00:00 [facility] Influenza High Dose 2020-08-01 Completed Unive rsity of [facility] 00:00:00 [facility] Influenza High Dose 2020-08-01 Completed Unive rsity of [place] 00:00:00 [place] [facility] Influenza High Dose 2020-08-01 Completed Unive rsity of [place] 00:00:00 [facility] Influenza High Dose 2020-08-01 Completed Unive [facility]ity of [place] 00:00:00 [facility] Influenza High Dose 2020-08-01 Completed Unive [facility]ity of [place] 00:00:00 [facility] Influenza High Dose 2020-08-01 Completed Unive [facility] of [place] 00:00:00 [facility] Influenza High Dose 2020-08-01 Completed Unive [facility] of [place] 00:00:00 [facility] Influenza High Dose 2020-08-01 Completed Unive [facility]ity of [place] 00:00:00 [facility] Influenza High Dose 2020-08-01 Completed Unive [facility] of [place] 00:00:00 [facility] Influenza High Dose 2020-08-01 Completed Unive [facility]ity of [place] 00:00:00 [facility] Influenza High Dose 2020-08-01 Completed Unive rsity of [place] 00:00:00 [facility] Influenza High Dose 2020-08-01 Completed Unive rsity of [facility] 00:00:00 [facility] Influenza High Dose 2020-08-01 Completed Unive rsity of [place] 00:00:00 [facility] Influenza High Dose 2020-08-01 Completed Unive [facility]ity of [place] 00:00:00 [facility] Influenza High Dose 2020-08-01 Completed Unive [facility] of [place] 00:00:00 [facility] Influenza High Dose 2020-08-01 Completed Unive rsity of [facility] 00:00:00 [facility] Influenza High Dose 2020-08-01 Completed Unive rsity of [facility] 00:00:00 [facility] Influenza High Dose 2020-08-01 Completed Unive [facility] of [place] 00:00:00 [facility] Influenza High Dose 2020-08-01 Completed Unive rsity of [place] 00:00:00 [facility] Influenza High Dose 2020-08-01 Completed Unive [facility]ity of [place] 00:00:00 [facility] Influenza High Dose 2020-08-01 Completed Unive [facility]ity of [place] 00:00:00 [facility] Influenza High Dose 2020-08-01 Completed Unive [facility]ity of [place] 00:00:00 [facility] Influenza High Dose 2020-08-01 Completed Unive rsity of [facility] 00:00:00 [facility] Influenza High Dose 2020-08-01 Completed Unive rsity of [facility] 00:00:00 [facility] Influenza High Dose 2020-08-01 Completed Unive rsity of [facility] 00:00:00 [facility] Influenza High Dose 2020-08-01 Completed Unive [facility] of [facility] 00:00:00 [facility] Influenza High Dose 2020-08-01 Completed [facility]ive [facility] of [facility] 00:00:00 [facility] Influenza High Dose 2020-08-01 Completed Unive rsity of [facility] 00:00:00 [facility] Vital Signs Vital Name Observation Time Observation Value Comments Source Systolic blood 2021-02-12 18:19:00 139 mm[Hg] Univer sity [facility] pressure [facility] Diastolic blood 2021-02-12 18:19:00 82 mm[Hg] Unive rs[facility] pressure [facility] Heart rate 2021-02-12 18:16:00 65 /min [facility] Body height 2021-02-12 18:16:00 167[address] [facility] Body weight 2021-02-12 18:16:[address] 71[address] [facility] BMI 2021-02-12 18:16:00 25.50 kg/m2 [facility] ty [facility] Oxygen saturation in 2021-02-12 18:16:00 97 /min University Arterial blood by [facility] Pulse oximetry Branch Systolic blood 2021-01-31 15:22:00 118 mm[Hg] Univer sity [facility] pressure [facility] Diastolic blood 2021-01-31 15:22:00 69 mm[Hg] Unive rsity [facility] pressure [facility] Heart rate 2021-01-31 15:22:00 72 /min [facility] Body temperature 2021-01-31 15:22:00 36.72 Sophie [facility] [address] [facility] Body height 2021-01-31 15:22:00 167.[address] [facility] Body weight 2021-01-31 15:22:00 73[address] [facility] BMI 2021-01-31 15:22:00 25.99 kg/m2 [facility] Systolic blood 2021-01-28 15:11:00 134 mm[Hg] Univer sity [facility] pressure [facility] Diastolic blood 2021-01-28 15:11:00 74 mm[Hg] Unive rsity of pressure [place] [facility] Heart rate 2021-01-28 15:11:00 85 /min Universi ty [facility] [place] [facility] Body temperature 2021-01-28 15:11:00 36.5 Sophie Univ ersity of [place] [facility] Respiratory rate 2021-01-28 15:11:00 16 /min Univ ersity of [place] [facility] Body weight 2021-01-28 15:11:00 70.308 kg Universi ty [facility] [place] [facility] BMI 2021-01-28 15:11:00 25.02 kg/m2 [facility] [place] [facility] Oxygen saturation in 2021-01-28 15:11:00 96 /min University of Arterial blood by [place] [employer] [facility] Pulse oximetry Branch Systolic blood 2020-12-20 17:00:00 180 mm[Hg] Univer sity of pressure [place] [facility] Diastolic blood 2020-12-20 17:00:00 78 mm[Hg] Unive rsity of pressure [place] [facility] Heart rate 2020-12-20 17:00:00 75 /min [facility] [place] [facility] Respiratory rate 2020-12-20 17:00:00 19 /min Univ ersity of [place] [facility] Oxygen saturation in 2020-12-20 17:00:00 96 /min University of Arterial blood by [place] [employer] Pulse oximetry Branch Body temperature 2020-12-20 14:41:00 37 Sophie Univ ersity of [place] [facility] Body weight 2020-12-20 14:41:00 68.04 kg [facility] [place] [facility] BMI 2020-12-20 14:41:00 24.21 kg/m2 [facility] [place] [facility] Systolic blood 2020-12-20 13:23:00 197 mm[Hg] Univer sity of pressure [place] [facility] Diastolic blood 2020-12-20 13:23:00 110 mm[Hg] Unive rsity of pressure [place] [facility] Heart rate 2020-12-20 13:23:00 94 /min [facility] [place] [facility] Body temperature 2020-12-20 13:23:00 36.22 Sophie [facility] ersity of [place] [facility] Body height 2020-12-20 13:23:00 167.6 cm [facility] [place] [facility] Body weight 2020-12-20 13:23:00 70.943 kg [facility] [place] [facility] BMI 2020-12-20 13:23:00 25.24 kg/m2 [facility] [place] [facility] Oxygen saturation in 2020-12-20 13:23:00 96 /min University of Arterial blood by [facility] Pulse oximetry Branch Systolic blood 2019-10-31 13:41:00 136 mm[Hg] Univer sity of pressure [place] [facility] Diastolic blood 2019-10-31 13:41:00 79 mm[Hg] Unive rsity of pressure [place] [facility] Heart rate 2019-10-31 13:41:00 87 /min [facility] [place] [facility] Body temperature 2019-10-31 13:41:00 36.89 Sophie [facility] [place] [facility] Body weight 2019-10-31 13:41:00 71.215 kg [facility] [place] [facility] BMI 2019-10-31 13:41:00 25.34 kg/m2 [facility] [place] [facility] Oxygen saturation in 2019-10-31 13:41:00 98 /min University of Arterial blood by [facility] Pulse oximetry Branch Systolic blood 2019-10-31 13:41:00 136 mm[Hg] Univer sity of pressure [place] [facility] Diastolic blood 2019-10-31 13:41:00 79 mm[Hg] Unive rsity of pressure [place] [facility] Heart rate 2019-10-31 13:41:00 87 /min [facility] [place] [facility] Body temperature 2019-10-31 13:41:00 36.89 Sophie [facility] [place] [facility] Body weight 2019-10-31 13:41:00 71.215 kg [facility] [place] [facility] BMI 2019-10-31 13:41:00 25.34 kg/m2 [facility] [place] [facility] Oxygen saturation in 2019-10-31 13:41:00 98 /min University of Arterial blood by [facility] Pulse oximetry Branch Systolic blood 2019-06-20 13:51:00 150 mm[Hg] Univer [facility] Diastolic blood 2019-06-20 13:51:00 75 mm[Hg] Unive rsity of pressure [facility] Heart rate 2019-06-20 13:51:00 63 /min [facility] Respiratory rate 2019-06-20 13:51:00 20 /min [facility] Body height 2019-06-20 13:51:00 167.6 cm Universi ty [facility] [place] Body weight 2019-06-20 13:51:00 72.757 kg Universi [facility] [place] BMI 2019-06-20 13:51:00 25.89 kg/m2 [facility] Oxygen saturation in 2019-06-20 13:51:00 98 /min [facility] Arterial blood by [facility] Pulse oximetry Branch Systolic blood 2019-04-29 13:57:00 131 mm[Hg] [facility]iver [facility] [place] Diastolic blood 2019-04-29 13:57:00 70 mm[Hg] [facility] Heart rate 2019-04-29 13:57:00 75 /min [facility] [place] Body temperature 2019-04-29 13:57:00 36.61 Sophie [facility] Body height 2019-04-29 13:57:00 167.6 cm [facility] [place] Body weight 2019-04-29 13:57:00 74.844 kg [facility] [place] BMI 2019-04-29 13:57:00 26.63 kg/m2 [facility] Procedures Procedure Date / Time Performing Clinician Source Performed HOME HEALTH - OTHER 2021-03-26 05:01:00 Doctor Aida Marrero [facility] Name Medical [place] AUDIOGRAM 2021-03-11 05:01:00 Doctor Janes, [facility] [place] [facility] [place] [facility] HEAD WO CONTRAST 2021-02-01 20:45:02 Reji Moraes [facility] ASSIGNMENT OF BENEFITS 2021-02-01 20:17:59 [facility] [place] EKG-12 LEAD 2021-01-31 16:04:39 Reji Moraes [facility] AUTHORIZATION FOR RELEASE 2021-01-31 05:01:00 Doctor Janes, [facility] [place] [facility] [place] HOME HEALTH - OTHER 2021-01-29 05:01:00 Aida Summers [facility] Name Medical [place] XR SACRUM AND COCCYX 2021-01-28 16:14:54 [facility] [place] XR FEMUR 2 VW LEFT 2021-01-28 16:14:54 Yadira Sanderson [facility] [place] XR HIPS 3 VW LEFT 2021-01-28 16:14:54 Yadira Sanderson Univer [facility] Medical [place] CONSENT/REFUSAL FOR 2021-01-28 15:02:23 Doctor Janes [facility] DIAGNOSIS [facility] TREATMENT [place] [facility] [place] HOME HEALTH - OTHER 2021-01-24 05:01:00 Doctor Janes [facility] [place] [facility] [place] HOME HEALTH 485 2021-01-17 05:01:00 Doctor Janes [facility] [place] [facility] CT CERVICAL SPINE WO 2020-12-20 16:09:18 Paul Thomas [facility] Medical Branch NOTICE OF PRIVACY 2020-12-20 14:25:39 Doctor Marrero [facility] PRACTICES [place] [facility] [place] CONSENT/REFUSAL FOR 2020-12-20 14:15:39 Doctor Marrero [facility] DIAGNOSIS [facility] TREATMENT [place] [facility] [place] MEDICATION CORRESPONDENCE 2020-08-01 05:01:00 Doctor Marrero [facility] [place] [facility] [place] [facility] LOW DOSE LUNG NODULE 2019-12-06 14:20:19 Jimmy Harry [facility] XR CHEST 2 VW 2019-10-31 14:43:33 Kermit Justine [place] o [facility] POTASSIUM SERUM 2019-06-17 18:12:00 Reji Moraes [facility] [place] MAGNESIUM 2019-06-17 18:12:00 Reji Moraes [facility] EXTERNAL PROVIDER RECORDS 2019-06-13 05:01:00 Doctor Marrero [facility] [place] [facility] [place] EXTERNAL PROVIDER RECORDS 2019-05-26 05:01:00 Doctor Marrero [facility] [place] [facility] STATEMENT OF PATIENT 2019-05-11 05:01:00 Doctor Marrero [facility] FINANCIAL RESPONSIBILITY [place] [facility] US ABDOMEN COMPLETE 2019-04-28 15:03:24 Reji [facility]aes [facility] Planned Activity Planned Date Details Comments Source Future Scheduled 2021-12-20 Depression screening [facility] Test 00:00:00 (procedure) [code = Medical Branch [id number]] Future Scheduled 2000 Medicare Annual Universi ty [facility] Test 00:00:00 Wellness Visit Medical [facility] h (procedure) [code = 128756947181084] Future Scheduled 2000 Screening for University [facility] Test 00:00:00 osteoporosis Medical Branch (procedure) [code = 609421163] Future Scheduled 2000 PNEUMOCOCCAL VACCINES [facility] Test 00:00:00 65+ (1 of 1 - PPSV23) Medica l Branch [code = PNEUMOCOCCAL VACCINES 65+ (1 of 1 - PPSV23)] Future Scheduled 1985 Zoster Recombinant [facility] Test 00:00:00 Vaccine (SHINGRIX) (1 Medica l Branch of 2) [code = Zoster Recombinant Vaccine (SHINGRIX) (1 of 2)] Future Scheduled 1954 DTaP,Tdap,and Td [facility]00 Vaccines (1 - Tdap) Medical Branch [code = DTaP,Tdap,and Td Vaccines (1 - Tdap)] Encounters Start End Encounter Admission Attending Care Care Encounter Source Date/Time Date/Time Type Type Clinicians Facility Department ID 2021-08-04 Emergency [facility] [id number] Univers 15:13:[address] [facility] 2021-08-04 Emergency [facility] [id number] Univers 06:50:35 ity [facility] 2021-10-13 2021-10-13 Letter ASHLYN Velazquez 1.2.840.114 [id number] Univers 00:00:00 00:00:00 (Out) Deepti CEJA [id number] it y of [facility] 4.2.7.2.686 [place] as [phone] [address] 2021-10-11 2021-10-11 Laboratory Only, Ang Db Test [facility] 1.2.8 40.114 [id number] Univers 15:30:00 15:45:00 Only Sonny, [facility] 350.1.13.10 ity [facility] 4.2.7.2.686 [place] as STEFFANIE?BLEA [phone] Tn vince [address] MEDICAL OFFICE BUILDING 2021-10-11 2021-10-11 Outpatient R [facility] [id number] Univers 15:30:00 15:30:00 [id number] ity [facility] 2021-10-11 2021-10-11 Outpatient R SONNY, [facility] [id number] Univers 15:30:00 15:30:[address] [facility] 2021-10-11 2021-10-11 Letter Doctor ASHLYN 1.2.840.114 [id number] Univers 00:00:00 00:00:00 (Out) Unassigned, BRENNA 350.1.13.10 ity of [place] [facility] 4.2.7.2.686 [place] as [phone] [address] 2021-04-30 2021-04-30 Outpatient R ALEISHA, [facility] [id number]-20 Univers 08:15:00 08:15:00 W[address]IF[id number] ity o [facility] 2021-04-30 2021-04-30 [facility] [id number] Univers 08:15:00 08:15:[address] [facility] 2021-03-26 2021-03-26 Orders Doctor ASHLYN 1.2.840.114 [id number] Univers 00:00:00 00:00:00 Only Unassigned, BRENNA 350.1.13.10 ity of [place] [facility] 4.2.7.2.686 [place] as [phone] [facility] [address] [place] 2021-03-19 2021-03-19 Outpatient R ANDREWMindi, [facility] [id number] [id number]-20 Univers 13:30:00 13:30:00 LESLEE [id number] [facility] 2021-03-11 2021-03-11 Ancillary Shantal Jeronimo UNIVERSIT 1.2.84 0.114 [id number] Univers 14:09:57 16:00:08 Visit Ashley Reyes 350.1.13.10 ity of [facility] 4.2.7.2.686 [place] as BANK [phone] [facility] BLDG. [address] [place] 2021-03-11 2021-03-11 Outpatient R [facility] [id number] -[id number] Univers 14:30:00 14:30:00 [id number] ity [facility] 2021-03-11 2021-03-11 Out[facility] [id number] Univers 14:30:00 14:30:00 ASHLEY ity [facility] 2021-03-11 2021-03-11 Orders Doctor ASHLYN 1.2.840.114 [id number] Univers 00:00:00 00:00:00 Only Unassigned, BRENNA 350.1.13.10 ity of [place] [facility] 4.2.7.2.686 [place] as [phone] [facility] [address] [place] 2021-02-26 2021-02-26 Telephone AleishaRUST 1.2.840.114 [id number] Univers 00:00:00 00:00:00 Wondiful A Health 350.1.13.10 ity of [place] 4.2.7.2.686 [place] as Professio [phone] [facility] [place] Office [facility] 2021-02-14 2021-02-14 Telephone Jose RRUST 1.2.840.114 [id number] Univers 00:00:00 00:00:00 Donnell Early 350.1.13.10 ity of [place] Profess[place] [phone] Tn dical nal 092 [facility] 2021-02-13 2021-02-13 Case AleishaRUST 1.2.840.114 [id number] Univers 00:00:00 00:00:00 Management Wondiful A Health 350.1.13.10 ity of [place] 4.2.7.2.686 [place] as Professio [phone] [facility] 044 [facility] 2021-02-12 2021-02-12 Office Jose RRUST 1.2.840.114 [id number] Univers 12:49:32 14:56:44 Visit Donnell Gene [place] 350.1.13.10 ity of [place]2.7.2.[place] Profess[place] [phone] Tn dical nal 092 [facility] 2021-02-12 2021-02-12 Outpatient R DONNELL ODELL [facility] [id number] Univers 13:00:00 13:00:00 DONNELL ODELL [id number] ity of [facility] 2021-02-12 2021-02-12 Outpatient R DONNELL ODELL [facility] [id number] Univers 13:00:00 13:00:[address]LL ity of [facility] 2021-02-07 2021-02-07 Telephone [facility] 1.2.840.114 [id number] Univers 00:00:00 00:00:00 Wondiful A Health 350.1.13.10 ity of [place] 4.2.7.2.686 [place] as Professio [phone] Tn dicms nal [address] [place] Office [facility] 2021-02-01 2021-02-01 [facility] AleishaRUST 1.2.787.523 [id number] Univers 15:18:17 23:59:00 Encounter Wondiful A [place] 350.1.13.10 ity of [place].2.7.2.686 [place] [phone] [facility] [address] [place] 2021-02-01 2021-02-01 Out[facility] [id number] N-20 Univers 15:30:00 15:30:00 WONDIFUL [id number] ity o f [facility] 2021-02-01 2021-02-01 Outpatient [facility] [id number] Univers 00:00:00 00:00:00 WONDIFUL ity o f [facility] 2021-02-01 2021-02-01 Orders Doctor GOLDBERG 1.2.840.114 [id number] Univers 00:00:00 00:00:00 Only Unassigned, BRENNA 350.1.13.10 ity of [place] [facility] 4.2.7.2.686 [place] as [phone] [facility] 009 Branch 2021-01-31 2021-01-31 Office AleishaRUST 1.2.840.114 [id number] Univers 09:57:36 11:30:57 Visit Wonemigdioful A Health 350.1.13.10 ity of [place] 4.2.7.2.686 [place] as Professio [phone] [address] One 2021-01-31 2021-01-31 Customer Leader Lab, Adc Fam Pob I [facility] 1.2. 840.114 [id number] Univers 10:48:53 11:08:53 Visit Reji Moraes Health 350.1.13.1 0 ity of [place] 4.2.7.2.686 [place] Professio [phone] [address] One 2021-01-31 2021-01-31 Outpatient [facility] [id number]-20 Univers 10:00:00 10:00:00 WONDIFUL [id number] ity o f [facility] 2021-01-31 2021-01-31 Outpatient [facility] [id number] Univers 10:00:00 10:00:00 WONDIFUL ity o idris [facility] 2021-01-31 2021-01-31 Orders Doctor ASHLYN 1.2.840.114 [id number] Univers 00:00:00 00:00:00 Only Unassigned, BRENNA 350.1.13.10 ity of [place] [facility] 4.2.7.2.686 [place] as [phone] [address] 2021-01-29 2021-01-29 Telephone ConverseRUST 1.2.840.114 [id number] Univers 00:00:00 00:00:00 Wondiful A Health 350.1.13.10 ity of [place] 4.2.7.2.686 [place] Professio [phone] [address] Office [facility] 2021-01-29 2021-01-29 Orders Doctor ASHLYN 1.2.840.114 [id number] Univers 00:00:00 00:00:00 Only Unassigned, BRENNA 350.1.13.10 ity of [place] [facility] 4.2.7.2.686 [place] as [phone] [facility] [address] [place] 2021-01-28 2021-01-28 Emergency [facility] 1.2.840.114 [id number] Univers 10:12:00 12:11:00 Foleduardo F [place] 350.1.13.10 ity of [place].2.7.2.686 [place] [phone] [facility] [address] [place] 2021-01-28 2021-01-28 Telephone [facility] 1.2.840.114 [id number] Univers 00:00:00 00:00:00 Wondiful A Health 350.1.13.10 ity of [place] 4.2.7.2.686 [place] Professio [phone] [address] One 2021-01-28 2021-01-28 Orders Doctor ASHLYN 1.2.840.114 [id number] Univers 00:00:00 00:00:00 Only Unassigned, BRENNA 350.1.13.10 ity of [place] [facility] 4.2.7.2.686 [place] as [phone] [address] 2021-01-24 2021-01-24 Telephone [facility] 1.2.840.114 [id number] Univers 00:00:00 00:00:00 Wondiful A Health 350.1.13.10 ity of [place] 4.2.7.2.686 [place] Professio [phone] [address] One 2021-01-24 2021-01-24 Orders Doctor ASHLYN 1.2.840.114 [id number] Univers 00:00:00 00:00:00 Only Unassigned, BRENNA 350.1.13.10 ity of [place] [facility] 4.2.7.2.686 [place] as [phone] [address] 2021-01-18 2021-01-18 Telephone [facility] 1.2.840.114 [id number] Univers 00:00:00 00:00:00 Wondiful A Health 350.1.13.10 ity of [place] 4.2.7.2.686 [place] Professio [phone] Tn dical nal [address] [place] Office [facility] 2021-01-17 2021-01-17 Orders Doctor ASHLYN 1.2.840.114 [id number] Univers 00:00:00 00:00:00 Only Unassigned, BRENNA 350.1.13.10 ity of [place] [facility] 4.2.7.2.686 [place] as [phone] [facility] [address] [place] 2021-01-01 2021-01-01 Patient Levar [facility] 1.2.840.114 [id number] Univers 00:00:00 00:00:00 Outreach Stacy [facility] 350.1.13.10 ity of [place] 4.2.7.2.686 [place] Professio [phone] [facility] nal [address] [place] [address] Office [facility] 2020-12-20 2020-12-20 Emergency Thomas [facility] 1.2.540.149 [id number] Univers 09:37:00 12:33:00 Paulkeaton Early 350.1.13.10 i ty of [place] 4.2.7.2.686 [place] [facility] [phone] [facility] [address] [place] 2020-12-20 2020-12-20 Office Aleisha [facility] 1.2.840.114 [id number] Univers 08:02:08 09:34:42 Visit Wondiful A Health 350.1.13.10 ity of [place] 4.2.7.2.686 [place] Professio [phone] [address] Office [facility] 2020-12-20 2020-12-20 Outpatient R ALEISHA [facility] [id number] N-20 Univers 08:15:00 08:15:00 WONDIFUL [id number] ity o f [facility] 2020-12-20 2020-12-20 Outpatient R ALEISHA [facility] [id number] Univers 08:15:00 08:15:00 W[address] ity o f [facility] 2020-12-20 2020-12-20 Orders Doctor GOLDBERG 1.2.840.114 [id number] Univers 00:00:00 00:00:00 Only Unassigned, BRENNA 350.1.13.10 ity of [place] [facility] 4.2.7.2.686 [place] as [phone] [address] 2020-11-14 2020-11-14 Outpatient R ASHWIN [facility] [id number] [id number]-20 Univers 12:40:00 12:40:[id number] ity of [facility] 2020-11-14 2020-11-14 Outpatient R ASHWIN [facility] [id number] Univers 12:40:00 12:40:00 DAVID ity [facility] 2020-10-24 2020-10-24 Outpatient R ASHWIN [facility] [id number] [id number]-20 Univers 13:10:00 13:10:00 DAVID [id number] ity [facility] 2020-10-24 2020-10-24 Outpatient R ASHWIN [facility] [id number] Univers 13:10:00 13:10:00 [facility] 2020-10-18 2020-10-18 Outpatient R ASHWIN [facility] [id number] [id number]-20 Univers 12:00:00 12:00:00 [facility] [id number] [facility] 2020-10-18 2020-10-18 [facility] [id number] Univers 12:00:00 12:00:00 DAVID [facility] 2020-08-02 2020-08-02 Telephone AleishaRUST 1.2.840.114 [id number] Univers 00:00:00 00:00:00 Wondiful A Health 350.1.13.10 ity of [place] 4.2.7.2.686 [place] Professio [phone] [address] Office Building One 2020-08-01 2020-08-01 Orders Doctor ASHLYN 1.2.840.114 [id number] Univers 00:00:00 00:00:00 Only Unassigned, BRENNA 350.1.13.10 ity of [place] [facility] 4.2.7.2.686 [place] as [phone] [address] 2019-12-21 2019-12-21 Telephone KamrynRUST 1.2.887.816 [id number] 00:00:00 00:00:00 Shiwan [place] 350.1.13.10 [place] 4.2.7.2.686 Professio [phone] [address] 2019-12-21 2019-12-21 Telephone [facility] 1.2.834.435 [id number] Univers 00:00:00 00:00:00 Shiwan [place] 350.1.13.10 i ty of [place].2.[place] Profess[place] [phone] [address] 2019-12-07 2019-12-07 [facility] 1.2.055.223 [id number] 00:00:00 00:00:00 Shiwan [place] 350.1.13.10 [place] 4.2.7.2.686 Professio [phone] [address] 2019-12-07 2019-12-07 [facility] 1.2.022.772 [id number] Univers 00:00:00 00:00:00 Shiwan [place] 350.1.13.10 i ty of [place] 4.2.7.2.[place] Profess[place] [phone] [address] 2019-12-06 2019-12-06 Outpatient R JIMMY HARRY [facility] [id number] Univers 08:07:08 23:59:00 JIMMY HARRY i ty of [facility] 2019-12-06 2019-12-06 [facility] 1.2.840.114 [id number] Univers 08:07:00 23:59:00 Encounter Shiwan [place] 350.1.13.10 ity of [place] 4.2.7.2.686 [place] [phone] [address] 2019-12-06 2019-12-06 [facility] 1.2.840.114 [id number] 08:07:00 23:59:00 Encounter Shiwan [place] 350.1.13.10 [place] 4.2.7.2.686 [place] [phone] [facility] 2019-12-06 2019-12-06 Outpatient R JIMMY HARRY [facility] [id number]-20 Univers 08:20:00 08:20:00 JIMMY HARRY [id number] i ty of [facility] 2019-11-21 2019-11-21 Outpatient R KAMRYN MIRAWVHilda [facility] [id number]-20 Univers 00:00:00 00:00:00 JIMMY HARRY [id number] i ty of [facility] 2019-10-31 2019-10-31 [facility] 1.2.840.114 [id number] Univers 08:22:00 23:59:00 Encounter Justine Lunaton 350.1.13.10 ity of [place] 4.2.7.2.686 [place] [facility] [phone] [address] 2019-10-31 2019-10-31 [facility] 1.2.840.114 [id number] 08:22:00 23:59:00 Encounter Justine Lunaton 350.1.13.10 [place] 4.2.7.2.686 [place] [phone] [facility] 2019-10-31 2019-10-31 [facility] 1.2.840.114 [id number] [facility] 07:24:15 08:06:13 Visit Justine Health 350.1.13.10 it y of [place] 4.2.7.2.686 [place] as Professio [phone] Tn dical nal [address] [place] Office Building [facility] 2019-10-31 2019-10-31 Office KermitRUST 1.2.840.114 [id number] 07:24:15 08:06:13 Visit Justine Health 350.1.13.10 [place] 4.2.7.2.686 Professio [phone] nal [facility] Office Building One 2019-06-22 2019-06-22 Telephone Aleisha [facility] 1.2.840.114 [id number] [facility] 00:00:00 00:00:00 Wondiful A Health 350.1.13.10 ity of [place] 4.2.7.2.686 [place] as Professio [phone] Tn dic[address] Office Building One 2019-06-20 2019-06-20 Office HarryRUST 1.2.840.114 [id number] Univers 07:53:24 09:18:29 Visit Mirarejihilda Early 350.1.13.10 i ty of [place] 4.2.7.2.[place] Profess[place] [phone] [facility] 2019-06-17 2019-06-17 Customer Leader Lab, Adc Fam Pob I [facility] 1.2. 840.114 [id number] Univers 13:08:03 14:34:38 Visit Reji Moraes Health 350.1.13.1 0 ity of [place] 4.2.7.2.686 [place] as Professio [phone] [facility] 044 [facility] 2019-06-13 2019-06-13 Orders Doctor GOLDBERG 1.2.840.114 [id number] Univers 00:00:00 00:00:00 Only Unassigned, BRENNA 350.1.13.10 ity of [place] [facility] 4.2.7.2.686 [place] as [phone] [address] 2019-05-26 2019-05-26 Orders Doctor ASHLYN 1.2.840.114 [id number] Univers 00:00:00 00:00:00 Only Unassigned, BRENNA 350.1.13.10 ity of [place] [facility] 4.2.7.2.686 [place] as [phone] [address] 2019-05-11 2019-05-11 Orders Doctor ASHLYN 1.2.840.114 [id number] Univers 00:00:00 00:00:00 Only Unassigned, BRENNA 350.1.13.10 ity of [place] [facility] 4.2.7.2.686 [place] as [phone] [address] 2019-04-29 2019-04-29 Office Aleisha [facility] 1.2.840.114 [id number] Univers 08:33:13 09:28:40 Visit Reji [facility] 350.1.13.10 ity of [place] 4.2.7.2.686 [place] as Professio [phone] [address] 2019-04-28 2019-04-28 [facility] 1.2.774.291 [id number] [facility] 09:31:45 23:59:00 Encounter Reji [place] 350.1.13.10 [place] 4.2.7.2.686 Johny [facility] [phone] [facility] 806 [address] 2018-10-08 2018-11-08 Outpatient Amaury IBARRA, [facility] [id number] [place] 10:03:00 23:59:00 [facility] 2017-10-07 2017-10-07 Outpatient Amaury LOUISEYINKA [facility] [id number] [place] 11:37:00 23:59:00 , [facility] Results Test Test Test Results Result Source Description Time Comments Comments CT HEAD WO 2021-01 No acute findings. Univer sity of CONTRAST -30 HISTORY:Dementia, vascular [facility] 20:48:3 suspected Memory Loss Mental Branch 8 status change,unknown cause TECHNIQUE: Noncontrast head CT was performed. COMPARISON:03/01/2019. FINDINGS: The ventricles and sulci are appropriate for patient's age. Scattered foci of low-attenuation are identified in the periventricular andsubcortical white matter, compatible with mild chronic small vesselischemic disease. There is no midline shift. The basal cisterns are preserved. No largevascular territory infarction, intracranial hemorrhage or mass effect isseen. The extracranial tissues demonstrate no acute findings. [facility] Results Inft User - 02/01/2021 3:49 PM CDTHISTORY:Dementia, vascular suspected Memory Loss Mental status change,unknown cause TECHNIQUE: Noncontrast head CT was performed.COMPARISON:03/01/20 19. FINDINGS:The ventricles and sulci are appropriate for patient's age.Scattered foci of low-attenuation are identified in the periventricular andsubcortical white matter, compatible with mild chronic small vesselischemic disease.There is no midline shift. The basal cisterns are preserved. No largevascular territory infarction, intracranial hemorrhage or mass effect isseen.The extracranial tissues demonstrate no acute findings.IMPRESSIONNo acute findings. CT CERVICAL 2020-12 No acute osseous findings. University SPINE WO -18 Moderate degenerative [place] as Medical CONTRAST 16:15:3 changes of the Branch 0 cervicalspine.HISTORY:neck pain TECHNIQUE: CT of the cervical spine was performed without IV contrast. COMPARISON:None. FINDINGS There is normal sagittal alignment and cervical lordosis. The vertebralbody heights are preserved and no acute fractures are seen. Thecraniocervical junction demonstrates normal alignment. A chronic corticated fragment is seen adjacent to the C7 spinous process,suggestive of a chronic injury. Moderate multilevel degenerative changes are identified in the form of discspace narrowing, marginal osteophytes and facet arthropathy, most notablefrom C3-C4 through C6-C7. [facility], Radiant Results Inft User - 12/20/2020 11:16 AM CDTHISTORY:neck pain TECHNIQUE: CT of the cervical spine was performed without IV contrast. COMPARISON:None.FINDINGSTher e is normal sagittal alignment and cervical lordosis. The vertebralbody heights are preserved and no acute fractures are seen. Thecraniocervical junction demonstrates normal alignment.A chronic corticated fragment is seen adjacent to the C7 spinous process,suggestive of a chronic injury. Moderate multilevel degenerative changes are identified in the form of discspace narrowing, marginal osteophytes and facet arthropathy, most notablefrom C3-C4 through C6-C7.IMPRESSIONNo acute osseous findings. Moderate degenerative changes of the cervicalspine. CT LUNG NODULE 2019-12 HISTORY: Follow-up. U niversity of TECHNIQUE: 64-Multidetector [facility] 14:34:[address] of Branch 1 the chest isobtained. FINDINGS: Comparison is made with 08/26/2019 CT chest study. Small nodule in the left lobe of the thyroid gland is unchanged whencompared with the previous study. Port-A-Cath inserted through leftinternal jugular is in good position. LUNGS: Postsurgical changes of left upper lobectomy noted with cylindricalbronchiectasis in the posterior left upper lobe with pleural scarring andpleural base mass, which could be pleural scarring, unchanged.Another nodular densities in the left lower lung seen previously haveimproved in size, largest nodule is 16 mm in the previous study and it ismeasuring 11 mm at this time. Additional fibrosis and calcifications are seen in the left lung base andlingula segment regions.The right lung showed mild COPD/compensatory hyperinflation. Nodularpleural thickening is seen along the posterior right lower chest with apleural base is 6 mm nodular density, unchanged. Postsurgical changes are seen in the posterior left lower ribs. Central airways and trachea appear unremarkable. No enlarged lymph nodesare seen in the addie or the mediastinum.Dense mitral annular calcifications, minimal calcification in the aorticvalve leaflets and in the coronary arteries noted.Small pericardial effusion, hiatal hernia, left adrenal gland hypertrophy,nonobstructing 3 mm stone in the upper right kidney and cholecystectomychanges noted. CONCLUSIONS:1. Postsurgical changes in left upper chest with chronic changes offibrosis, bronchiectasis and pleural scarring in the posterior left upperthorax, stable since August 2019 study.2. Cluster of nodular densities in the left upper lung showed intervalimprovement. Largest nodule measured 16 mm in the previous study and it ismeasuring 11 mm at this time.3. Small nonobstructing stone in the upper right kidney, short slidinghiatal hernia, mild left adrenal gland hypertrophy, S/P cholecystectomy,postsurgical changes in the posterior left lower ribs and mild middlethoracic degenerative spondylosis with 20% old fracture deformity in theupper plate of one of the middle thoracic vertebral bodies noted, unchangedsince August 2019 study. [facility], Radiant Results Inft User - 12/06/2019 8:35 AM CSTHISTORY: Follow-up.TECHNIQUE: 64-Multidetector noncontrast enhanced CT of the chest isobtained.FINDINGS: Comparison is made with 08/26/2019 CT chest study.Small nodule in the left lobe of the thyroid gland is unchanged whencompared with the previous study. Port-A-Cath inserted through leftinternal jugular is in good position.LUNGS: Postsurgical changes of left upper lobectomy noted with cylindricalbronchiectasis in the posterior left upper lobe with pleural scarring andpleural base mass, which could be pleural scarring, unchanged.Another nodular densities in the left lower lung seen previously haveimproved in size, largest nodule is 16 mm in the previous study and it ismeasuring 11 mm at this time.Additional fibrosis and calcifications are seen in the left lung base andlingula segment regions.The right lung showed mild COPD/compensatory hyperinflation. Nodularpleural thickening is seen along the posterior right lower chest with apleural base is 6 mm nodular density, unchanged.Postsurgical changes are seen in the posterior left lower ribs.Central airways and trachea appear unremarkable. No enlarged lymph nodesare seen in the addie or the mediastinum.Dense mitral annular calcifications, minimal calcification in the aorticvalve leaflets and in the coronary arteries noted.Small pericardial effusion, hiatal hernia, left adrenal gland hypertrophy,nonobstructing 3 mm stone in the upper right kidney and cholecystectomychanges noted.CONCLUSIONS:1. Postsurgical changes in left upper chest with chronic changes offibrosis, bronchiectasis and pleural scarring in the posterior left upperthorax, stable since August 2019 study.2. Cluster of nodular densities in the left upper lung showed intervalimprovement. Largest nodule measured 16 mm in the previous study and it ismeasuring 11 mm at this time.3. Small nonobstructing stone in the upper right kidney, short slidinghiatal hernia, mild left adrenal gland hypertrophy, S/P cholecystectomy,postsurgical changes in the posterior left lower ribs and mild middlethoracic degenerative spondylosis with 20% old fracture deformity in theupper plate of one of the middle thoracic vertebral bodies noted, unchangedsince August 2019 study. XR CHEST 2 2019-10 [place] [id number] unchanged masslike [facility] 14:54:2 thickening adjacent to Br anch 3 theaortic arch. Subtle nodular densities within the left lower lobe may represent noduledensity seen on prior CT. This could be further characterized with CT. Status post right upper lobectomy. Prior cholecystectomy. .2 VIEWS OF THE CHEST HISTORY: Hx of lung cancer, partial lung reduction, with acute cough thatis severe causing rib pain, and intermittent SOB. COMPARISON: 04/15/2019 and 10/26/2018 TECHNIQUE: PA and lateral views of the chest. FINDINGS: Status post prior left upper lobectomy with postradiationchanges. Unchanged appearance of masslike thickening adjacent to the aorticarch when compared to priors. Very subtle nodular densities within the leftlower lobe may represent vessels and/or small groundglass nodule seenpreviously on CT. Lungs are otherwise clear. No pleural effusion or pneumothorax. Heart sizeis stable. Right subclavian port with minimal kinking adjacent to theinferior aspect of the medial right clavicle with its tip terminating inthe superior cavoatrial junction. [facility], Radiant Results Inft User - 10/31/2019 8:55 AM CST2 VIEWS OF THE CHESTHISTORY: Hx of lung cancer, partial lung reduction, with acute cough thatis severe causing rib pain, and intermittent SOB. COMPARISON: 04/15/2019 and 10/26/2018TECHNIQUE: PA and lateral views of the chest.FINDINGS: Status post prior left upper lobectomy with postradiationchanges. Unchanged appearance of masslike thickening adjacent to the aorticarch when compared to priors. Very subtle nodular densities within the leftlower lobe may represent vessels and/or small groundglass nodule seenpreviously on CT.Lungs are otherwise clear. No pleural effusion or pneumothorax. Heart sizeis stable. Right subclavian port with minimal kinking adjacent to theinferior aspect of the medial right clavicle with its tip terminating inthe superior cavoatrial junction.IMPRESSIONRedemonst ration of grossly unchanged masslike thickening adjacent to theaortic arch.Subtle nodular densities within the left lower lobe may represent noduledensity seen on prior CT. This could be further characterized with CT.Status post right upper lobectomy.Prior cholecystectomy.. MAGNESIUM 2019-06-17 21:34:00 Test Item Value Reference Range Interpretation Comme nts MAGNESIUM (test code = 3673521079) 1.4 mg/dL 1.7-2.4 L Lab Interpretation (test code = 42810-1) [facility] [id number] 21:31:00 Test Item Value Reference Range Interpretation Comments K (test code = 2515389778) 4.7 mmol/L 3.5-5 Lab Interpretation (test code = Normal 22354-2) [facility] [id number] 15:11:12HISTORY: Persistent elevated and worsening levels of lipase. TECHNIQUE: Upper abdominal organs were evaluated in multiple planes withthe patient in multiple different positions, without and with colorimaging. FINDINGS: Liver is 14.1 cm, spleen is 9.9 x 3.6 cm, right kidney is 9.3 x4.5 x 4.0 cm and left kidney is 9.4 x 4.0 x 3.4 cm in size. No focallesions are detected in these organs. Mild diffuse cor tical atrophy of bothkidneys with prominent pelvicalyceal echo complex and mild increasedechogenicity of the cortex of both kidneys noted. Cortex of both kidneysrange between 8.7 mm and 11.8 mm. No hydronephrosis, free fluid in theupper abdomen or aortic aneurysm detected. Hepatic and portal venous sys temappear patent, with hepatopetal portal flow noted. Gallbladder is absent. Common hepatic duct is5.0 mm. Proximal portion of the tail of pancreas showed 2.3 cm size cystic lesionwith thin incomplete septum in it. In the mid body region, there is anirregular shaped hypoechoic lesion approximately 10 mm in size. Pancreaticduct is not dilated. CONCLUSIONS:1. Normal size liver with mild hepatic steatosis suspected. No focal liverlesions.2. S/P cholecystectomy.3. Suspicious findings of 10 mm lesion in the mid body of the pancreas and2.3 cm size cystic lesion in the proximal tail portion of the pancreas. Isuggest CT scan of abdomen without and with contrast, using pancreasprotocol. Note: Above report is self-edited and computer generated errors may beoverlooked. Therefore, if you notice an error, I request you to bring it drew attention SHANTA. [facility], Radiant Results Inft User - 04/28/2019 10:11 AMCDTHISTORY: Persistent elevated and worsening levels of lipase.TECHNIQUE: Upper abdominal organs were evaluated in multiple planes withthe patient in multiple different positions, without and with colorimaging.FINDINGS: Liver is 14.1 cm, spleen is 9.9 x 3.6 cm, right kidney is 9.3 x4.5 x 4.0 cm and left kidney is 9.4 x 4.0 x 3.4 cm in size. No focallesions are detected in these organs. Mild diffuse cortical atrophy of bothkidneys with prominent pelvicalyceal echo complex and mild increasedechogenicity of the cortex of both kidneys noted. Cortex of both kidneysrange between 8.7 mm and 11.8 mm. No hydronephrosis, free fluid in theupper abdomen or aortic aneurysm detected. Hepatic and portal venous sy stemappear patent, with hepatopetal portal flow noted. Gallbladder is absent. Common hepatic duct is5.0 mm.Proximal portion of the tail of pancreas showed 2.3 cm size cystic lesionwith thin incompleteseptum in it. In the mid body region, there is anirregular shaped hypoechoic lesion approximately 10mm in size. Pancreaticduct is not dilated.CONCLUSIONS:1. Normal size liver with mild hepatic steatosis suspected. No focal liverlesions.2. S/P cholecystectomy.3. Suspicious findings of 10 mm lesion in the mid body of the pancreas and2.3 cm size cystic lesion in the proximal tail portion of the pancreas. Isuggest CT scan of abdomen without and with contrast, using pancreasprotocol.Note: Above report is self- edited and computer generated errors may beoverlooked. Therefore, if you notice an error, I request you to bring it drew attention SHANTA.[facility] WITH MANUAL [id number] 11:52:00 Test Item Value Reference Range Interpretation Comments WBC (test code = 9.6 10\S\3/uL 4.5-11.0 WBC) RBC (test code = 5.07 10\S\6/uL 3.80-5.80 RBC) HGB (test code = 14.7 g/dL 12.0-15.5 HBG) HCT (test code = 43.9 % 35.0-44.0 HCT) MCV (test code = 86.6 fL 81.0-99.0 MCV) MCH (test code = 29.0 pg 27.0-31.0 MCH) MCHC (test code = 33.5 g/dL 32.0-36.0 MCHC) RDW (test code = 13.5 % 11.5-14.5 RDW) PLT (test code = 387 10\S\3/uL 130-400 PLT) MPV (test code = 9.6 fL 9.4-12.4 MPV) NEUTROP # (test 7.6 10\S\3/uL 1.6-8.0 code = NE#) LYMPH # (test code 0.8 10\S\3/uL 1.1-3.5 L = LY#) MONOCYTE # (test 0.8 10\S\3/uL 0.0-1.1 code = MO#) EOSINOPH # (test 0.2 10\S\3/uL 0.0-0.7 code = EO#) BASOPHIL # (test 0.1 10\S\3/uL 0.0-0.3 code = BA#) IG # (test code = 0.08 10\S\3/uL 0.00-0.06 H IG#) NRBC # (test code 0.51 10\S\3/uL 0.00-0.01 H = NRBC#) NEUTROPH % (test 79.1 % 35.0-73.0 H code = NE%) LYMPH % (test code 8.7 % 20.0-55.0 L = LY%) MONO % (test code 8.5 % 2.5-10.0 = MO%) EOSINOPH % (test 2.4 % 0.0-5.0 code = EO%) BASOPHIL % (test 0.5 % 0.0-2.0 code = BA%) IG % (test code = 0.8 % 0.0-0.8 IG%) NRBC% (test code = 5.3 % 0.0-0.2 H NRBC%) MAN DIFF (test MANUAL code = HMDIFF) DIFFERENTIAL SEG (test code = 69 % 42-75 SEG) BAND (test code = 2 % 0-8 BAND) LYMPH (test code = 19 % 20-51 L LYMPH) MONO (test code = 7 % 3-11 MONO) EOS (test code = 1 % 0-10 EOS) BASO (test code = 2 % 0-2 BASO) RBC MORPH (test NORMAL NORMAL code = RBCMORN) PLT EST (test code ADEQUATE ADEQUATE few large /giant = PLTEST) platelets seen PLT MORPH (test NORMAL (1.5-3 um) NORMAL code = PLTMOR) THYROID PANEL/SCREEN (TSH)2018-10-08 11:13:00 Test Item Value Reference Range Interpretation Comments TSH (test code = A57) 0.711 uIU/mL 0.358-3.740 VITAMIN D TOTAL 25 (OH)2018-10-08 11:11:00 Test Item Value Reference Range Interpretation Comments VITAMIN D 25(OH) (test code = VD) 32.0 ng/mL 30.0-100.0 T4 [id number] 11:08:00 Test Item Value Reference Range Interpretation Comments T4 FREE (test code = A91) 1.21 ng/dL 0.76-1.46 LIPID [id number] 11:08:00 Test Item Value Reference Range Interpretation Comments CHOLESTROL (test code = 44A) 173 mg/dL 140-200 TRIGLYCERI (test code = 42B) 106 mg/dL <=149 HDL (test code = 83D) 39.0 mg/dL 40.0-60.0 L LDL (test code = 34B) 120 mg/dL <=99 H CHL/HDL (test code = CHR) 4.4 0.0-3.4 H BASIC METABOLIC [id number] 10:56:00 Test Item Value Reference Range Interpretation Comments GLUCOSE (test code = 06D) 106 mg/dL 75-100 H SODIUM (test code = 01A) 135 mmol/L 136-145 L POTASSIUM (test code = 01B) 4.5 mmol/L 3.6-5.1 CHLORIDE (test code = 04A) 101 mmol/L 98-107 CO2 (test code = 02A) 29 mmol/L 22-32 ANION GAP (test code = ANG) 9.5 mmol/L BUN (test code = 05D) 17 mg/dL 7-18 CREATININE (test code = 03E) 1.0 mg/dL 0.4-1.1 BUN/CREA (test code = BCR) 18 12-20 CALCIUM (test code = 09D) 9.9 mg/dL 8.3-9.5 H CBC (INCLUDES AUTOMATED DIFFERENTIAL)2018-10-08 10:53:00 Test Item Value Reference Range Interpretation Comments WBC (test code = WBC) 9.6 10\S\3/uL 4.5-11.0 RBC (test code = RBC) 5.07 10\S\6/uL 3.80-5.80 HGB (test code = HBG) 14.7 g/dL 12.0-15.5 HCT (test code = HCT) 43.9 % 35.0-44.0 MCV (test code = MCV) 86.6 fL 81.0-99.0 MCH (test code = MCH) 29.0 pg 27.0-31.0 MCHC (test code = MCHC) 33.5 g/dL 32.0-36.0 RDW (test code = RDW) 13.5 % 11.5-14.5 PLT (test code = PLT) 387 10\S\3/uL 130-400 MPV (test code = MPV) 9.6 fL 9.4-12.4 NEUTROP # (test code = NE#) 7.6 10\S\3/uL 1.6-8.0 LYMPH # (test code = LY#) 0.8 10\S\3/uL 1.1-3.5 L MONOCYTE # (test code = MO#) 0.8 10\S\3/uL 0.0-1.1 EOSINOPH # (test code = EO#) 0.2 10\S\3/uL 0.0-0.7 BASOPHIL # (test code = BA#) 0.1 10\S\3/uL 0.0-0.3 IG # (test code = IG#) 0.08 10\S\3/uL 0.00-0.06 H NRBC # (test code = NRBC#) 0.51 10\S\3/uL 0.00-0.01 H NEUTROPH % (test code = NE%) 79.1 % 35.0-73.0 H LYMPH % (test code = LY%) 8.7 % 20.0-55.0 L MONO % (test code = MO%) 8.5 % 2.5-10.0 EOSINOPH % (test code = EO%) 2.4 % 0.0-5.0 BASOPHIL % (test code = BA%) 0.5 % 0.0-2.0 IG % (test code = IG%) 0.8 % 0.0-0.8 NRBC% (test code = NRBC%) 5.3 % 0.0-0.2 H MANDIFF (test code = MDIFF) NO NO RBC MORPH (test code = RBCMOR) NORMAL LIVER [id number] 12:50:00 Test Item Value Reference Range Interpretation Comments BILI TOTAL (test code = 11A) 0.7 mg/dL 0.2-1.0 BILI DIRCT (test code = 12A) 0.1 mg/dL 0.0-0.2 BILI INDIR (test code = BILII) 0.6 mg/dL <=0.8 PROTEIN (test code = 07D) 6.9 g/dL 6.4-8.2 ALBUMIN (test code = 08D) 3.9 g/dL 3.5-4.8 GLOBULIN (test code = GLB) 3.0 g/dL 1.5-3.8 ALB/GLOB (test code = AGRR) 1.3 1.0-2.6 ALK PHOS (test code = 35A) 88 IU/L 42-121 AST (test code = 30A) 20 IU/L <=42 ALT (test code = 31A) 16 IU/L <=78 THYROID PANEL/SCREEN (TSH)2017-10-07 12:50:00 Test Item Value Reference Range Interpretation Comments TSH (test code = A57) 1.840 uIU/mL 0.358-3.740 LIPID [id number] 12:49:00 Test Item Value Reference Range Interpretation Comments CHOLESTROL (test code = 44A) 202 mg/dL 140-200 H TRIGLYCERI (test code = 42B) 125 mg/dL <=149 HDL (test code = 83D) 54.0 mg/dL 40.0-60.0 LDL (test code = 34B) 138 mg/dL <=99 H CHL/HDL (test code = CHR) 3.7 0.0-3.4 H BASIC METABOLIC [id number] 12:37:00 Test Item Value Reference Range Interpretation Comments GLUCOSE (test code = 06D) 99 mg/dL 75-100 SODIUM (test code = 01A) 141 mmol/L 136-145 POTASSIUM (test code = 01B) 4.1 mmol/L 3.6-5.1 CHLORIDE (test code = 04A) 105 mmol/L 98-107 CO2 (test code = 02A) 30 mmol/L 22-32 ANION GAP (test code = ANG) 10.1 mmol/L BUN (test code = 05D) 21 mg/dL 7-18 H CREATININE (test code = 03E) 1.0 mg/dL 0.4-1.1 BUN/CREA (test code = BCR) 21 12-20 H CALCIUM (test code = 09D) 9.4 mg/dL 8.3-9.5 CBC (INCLUDES AUTOMATED DIFFERENTIAL)2017-10-07 12:21:00 Test Item Value Reference Range Interpretation Comments WBC (test code = WBC) 7.3 10\S\3/uL 4.5-11.0 RBC (test code = RBC) 5.29 10\S\6/uL 3.80-5.80 HGB (test code = HBG) 15.4 g/dL 12.0-15.5 HCT (test code = HCT) 44.7 % 35.0-44.0 H MCV (test code = MCV) 84.5 fL 81.0-99.0 MCH (test code = MCH) 29.1 pg 27.0-31.0 MCHC (test code = MCHC) 34.5 g/dL 32.0-36.0 RDW (test code = RDW) 13.9 % 11.5-14.5 PLT (test code = PLT) 244 10\S\3/uL 130-400 MPV (test code = MPV) 9.4 fL 9.4-12.4 NEUTROP # (test code = NE#) 5.1 10\S\3/uL 1.6-8.0 LYMPH # (test code = LY#) 1.4 10\S\3/uL 1.1-3.5 MONOCYTE # (test code = MO#) 0.6 10\S\3/uL 0.0-1.1 EOSINOPH # (test code = EO#) 0.2 10\S\3/uL 0.0-0.7 BASOPHIL # (test code = BA#) 0.0 10\S\3/uL 0.0-0.3 IG # (test code = IG#) 0.03 10\S\3/uL 0.00-0.06 NRBC # (test code = NRBC#) 0.00 10\S\3/uL 0.00-0.01 NEUTROPH % (test code = NE%) 68.8 % 35.0-73.0 LYMPH % (test code = LY%) 19.5 % 20.0-55.0 L MONO % (test code = MO%) 8.6 % 2.5-10.0 EOSINOPH % (test code = EO%) 2.2 % 0.0-5.0 BASOPHIL % (test code = BA%) 0.5 % 0.0-2.0 IG % (test code = IG%) 0.4 % 0.0-0.8 NRBC% (test code = NRBC%) 0.0 % 0.0-0.2 MANDIFF (test code = MDIFF) NO NO RBC MORPH (test code = RBCMOR) NORMAL LIVER [id number] 16:50:00 Test Item Value Reference Range Interpretation Comments BILI TOTAL (test code = 11A) 0.5 mg/dL 0.2-1.0 BILI DIRCT (test code = 12A) 0.1 mg/dL 0.0-0.2 BILI INDIR (test code = BILII) 0.4 mg/dL <=0.8 PROTEIN (test code = 07D) 6.4 g/dL 6.4-8.2 ALBUMIN (test code = 08D) 3.7 g/dL 3.5-4.8 GLOBULIN (test code = GLB) 2.7 g/dL 1.5-3.8 ALB/GLOB (test code = AGRR) 1.4 1.0-2.6 ALK PHOS (test code = 35A) 80 IU/L 42-121 AST (test code = 30A) 20 IU/L <=42 ALT (test code = 31A) 21 IU/L <=78 LIPID [id number] 16:44:00 Test Item Value Reference Range Interpretation Comments CHOLESTROL (test code = 44A) 210 mg/dL 140-200 H TRIGLYCERI (test code = 42B) 156 mg/dL <=149 H HDL (test code = 83D) 51.0 mg/dL 40.0-60.0 LDL (test code = 34B) 137 mg/dL <=99 H CHL/HDL (test code = CHR) 4.1 0.0-3.4 H BASIC METABOLIC [id number] 16:38:00 Test Item Value Reference Range Interpretation Comments GLUCOSE (test code = 06D) 111 mg/dL 75-100 H SODIUM (test code = 01A) 141 mmol/L 136-145 POTASSIUM (test code = 01B) 4.3 mmol/L 3.6-5.1 CHLORIDE (test code = 04A) 105 mmol/L 98-107 CO2 (test code = 02A) 30 mmol/L 22-32 ANION GAP (test code = ANG) 10.3 mmol/L BUN (test code = 05D) 18 mg/dL 7-18 CREATININE (test code = 03E) 1.1 mg/dL 0.4-1.1 BUN/CREA R (test code = BCR) 16 12-20 CALCIUM (test code = 09D) 9.3 mg/dL 8.3-9.5 CBC (INCLUDES AUTOMATED DIFFERENTIAL)2016-11-25 16:22:00 Test Item Value Reference Range Interpretation Comments WBC (test code = WBC) 8.3 10\S\3/uL 4.5-11.0 RBC (test code = RBC) 4.82 10\S\6/uL 3.80-5.80 HGB (test code = HBG) 14.1 g/dL 12.0-15.5 HCT (test code = HCT) 40.8 % 35.0-44.0 MCV (test code = MCV) 84.6 fL 81.0-99.0 MCH (test code = MCH) 29.3 pg 27.0-31.0 MCHC (test code = MCHC) 34.6 g/dL 32.0-36.0 RDW (test code = RDW) 13.6 % 11.5-14.5 PLT (test code = PLT) 242 10\S\3/uL 130-400 MPV (test code = MPV) 9.5 fL 9.4-12.4 NEUTROP # (test code = NE#) 5.5 10\S\3/uL 1.6-8.0 LYMPH # (test code = LY#) 1.7 10\S\3/uL 1.1-3.5 MONOCYTE # (test code = MO#) 0.8 10\S\3/uL 0.0-1.1 EOSINOPH # (test code = EO#) 0.2 10\S\3/uL 0.0-0.7 BASOPHIL # (test code = BA#) 0.0 10\S\3/uL 0.0-0.3 IG # (test code = IG#) 0.04 10\S\3/uL 0.00-0.06 NRBC # (test code = NRBC#) 0.00 10\S\3/uL 0.00-0.01 NEUTROPH % (test code = NE%) 66.1 % 35.0-73.0 LYMPH % (test code = LY%) 20.6 % 20.0-55.0 MONO % (test code = MO%) 10.0 % 2.5-10.0 EOSINOPH % (test code = EO%) 2.3 % 0.0-5.0 BASOPHIL % (test code = BA%) 0.5 % 0.0-2.0 IG % (test code = IG%) 0.5 % 0.0-0.8 NRBC% (test code = NRBC%) 0.0 % 0.0-0.2 MANDIFF (test code = MDIFF) NO NO RBC MORPH (test code = RBCMOR) NORMAL
[2021-10-30] MEDS ORDERED: ACETAMINOPHEN 325 MG TABLET ONE (08:00)
--- NOTE | 2021-10-30 09:40 | RAD REPORT ---
EXAM DESCRIPTION: CT - CTHCSPWOC - 10/30/2021 9:06 am CLINICAL HISTORY: fallwith head and neck trauma, headache, neck pain COMPARISON: No comparisons TECHNIQUE: Axial 5 mm thick images of the head were obtained. Axial 2 mm thick images of the cervic al spine were obtained with sagittal and coronal reconstruction images generated and reviewed. All CT scans are performed using dose optimization technique as appropriate and may include automated exposure control or mA/KV adjustment according to patient size. FINDINGS: No intracranial hemorrhage, mass, edema or acute intracranial finding. No suspicion for ac [place] infarction. Patient has mild atrophy and chronic ischemic change. Ventricles are in proportion to any volume loss. No extra-axial fluid collections. Mastoid air cells and paranasal sinuses show no s ignificant finding. No globe or orbit abnormality seen. Cervical body height and alignment are normal. All cervical disc levels except C2-3 show loss in heig ht. Posterior endplate spurring and uncovertebral joint hypertrophy changes are present at multiple l evels. Facet joint degenerative changes are mild. No fracture or acute bony abnormality. Moderate emily ateral foraminal stenosis present at C3-4 with severe C4-5 bilateral foraminal stenosis. Moderately s evere C5-6 foraminal stenosis. There is minimal foraminal stenosis on the left at C6-7. Central canal detail is inherently limited. No paraspinal mass or hematoma. IMPRESSION: Negative CT head examination for acute or significant finding. 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 No f racture or acute cervical spine finding identified.
--- NOTE | 2021-10-30 09:44 | EDPHYS ---
Physician Documentation [facility] Name: Malou Bruno Age: 86 yrs Sex: Female : 1935 Arrival Date: 10/30/2021 Time: 07:43 Bed 24 Private MD: ED Physician German Tinajero HPI: 10/30 07:49 This 86 yrs old Female presents to ER via Unassigned with complaints of Fall Injury. cp 07:49 Details of fall: The patient fell from an upright position, while walking. Onset: The cp symptoms/episode began/occurred this morning. Associated injuries: The patient sustained injury to the head, contusion, hematoma. Patient reports she stood up to walk to door and lost her balance. Struck forehead on floor. No LOC. - Immunization history: Last tetanus immunization: < 5 years ago. - Social history:: Smoking status: Patient denies any tobacco usage or history of. ROS: 07:51 Constitutional: Negative for body aches, chills, fever, poor PO intake. cp 07:51 Neck: Negative for pain with movement, pain at rest, stiffness. 07:51 Cardiovascular: Negative for chest pain, palpitations. 07:51 Respiratory: Negative for cough, shortness of breath, wheezing. 07:51 Abdomen/GI: Negative for abdominal pain, nausea, vomiting, and diarrhea. 07:51 Neuro: Negative for altered mental status, loss of consciousness, syncope, weakness. 07:51 All other systems are negative. Exam: 07:51 Constitutional: The patient appears in no acute distress, alert, awake, comfortable, cp non-diaphoretic, non-toxic, well developed, well nourished. 07:51 Head/face: Noted is hematoma, that is mild, of the forehead. 07:51 Eyes: Periorbital structures: appear normal, Pupils: equal, round, and reactive to light and accomodation, Extraocular movements: intact throughout, Conjunctiva: normal, no exudate, no injection, Sclera: no appreciated abnormality, Lids and lashes: appear normal, bilaterally. 07:51 ENT: External ear(s): are unremarkable, Ear canal(s): are normal, clear, TM's: dullness, bilaterally, Nose: is normal, Mouth: Lips: moist, Oral mucosa: moist, Posterior pharynx: Airway: no evidence of obstruction, patent. 07:51 Neck: C-spine: vertebral tenderness, is not appreciated, crepitus, is not appreciated, ROM/movement: is normal, is supple, without pain, no range of motions limitations. 07:51 Chest/axilla: Inspection: normal, Palpation: is normal, no crepitus, no tenderness. 07:51 Cardiovascular: Rate: normal, Rhythm: regular. 07:51 Respiratory: the patient does not display signs of respiratory distress, Respirations: normal, no use of accessory muscles, no retractions, labored breathing, is not present, Breath sounds: are clear throughout, no decreased breath sounds, no stridor, no wheezing. Vital Signs: 07:48 BP 155 / 78; Pulse 72; Resp 16; Temp 97.8(O); Pulse Ox 100% on R/A; ic1 08:56 Pulse 96; Resp 18; Pulse Ox 100% on R/A; ic1 09:48 BP 161 / 82; Pulse 67; Resp 16; Pulse Ox 99% on R/A; ic1 [place] Coma Score: 07:48 Eye Response: spontaneous(4). Verbal Response: oriented(5). Motor Response: obeys ic1 commands(6). Total: 15. Trauma Score (Adult): 07:48 Eye Response: spontaneous(1); Verbal Response: oriented(1); Motor Response: obeys ic1 commands(2); Systolic BP: > 89 mm Hg(4); Respiratory Rate: 10 to 29 per min(4); Mchen[place] Score: 15; Trauma Score: 12 MDM: 07:49 Patient medically screened. cp 08:00 Differential diagnosis: closed head injury, contusion, fracture, laceration. cp 09:44 Data reviewed: vital signs, nurses notes, radiologic studies, CT scan. cp 09:44 Counseling: I had a detailed discussion with the patient and/or guardian regarding: the cp historical points, exam findings, and any diagnostic results supporting the discharge/admit diagnosis, radiology results. 09:44 Special discussion: Based on the patient's history, exam and DX evaluation, there is no cp indication for emergent intervention or inpatient TX. It is understood by the patient/guardian that if the SXs persist or worsen they need to return immediately for re-evaluation. 10/30 07:45 Order name: CT Head C Spine; Complete Time: 09:41 cp 10/30 09:41 Interpretation: Reviewed report. cp Administered Medications: 07:59 Drug: Tylenol 650 mg Route: PO; ic1 Disposition: 10:00 Chart complete. cp 18:39 Co-signature as Attending Physician, German Tinajero MD. ma2 Disposition Summary: 10/30/21 09:44 Discharge Ordered Location: Home cp Problem: new cp Symptoms: have improved cp Condition: Stable cp Diagnosis - Contusion of unspecified part of head, initial encounter cp - Fall on same level, unspecified cp Followup: cp - With: Private Physician - When: 1 - 2 days - Reason: Worsening of condition Discharge Instructions: - Discharge Summary Sheet cp - Facial or Scalp Contusion cp - Head Injury, Adult cp - Fall Prevention in the Home, Adult cp Forms: - Medication Reconciliation Form cp - Thank You Letter cp - Antibiotic Education cp - Prescription Opioid Use cp Signatures: Dispatcher [employer] EDMS Gordon Aviles PA PA German Buenrostro MD MD ma2 Brianna Bowers RN RN ic1
--- NOTE | 2021-10-30 09:44 | ER ---
Nurse's Notes [facility] Name: Malou Bruno Age: 86 yrs Sex: Female : 1935 Arrival Date: 10/30/2021 Time: 07:43 Bed 24 Private MD: Diagnosis: Contusion of unspecified part of head, initial encounter;Fall on same level, unspecified Presentation: 10/30 07:48 Chief complaint: EMS states: Pt brought in by ambulance from home for fall that ic1 occurred on today shortly before arrival. Pt states she slipped and fell forward onto a table hitting her head. Denies pos LOC or use of blood thinners. Pt has hematoma noted to L side of forehead. Denies dizziness. AAOx3. GCS 15. Denies any other injuries. Care prior to arrival: None. Mechanism of Injury: Fall table. Trauma event details: Injury occurred: at home. Injury occurred: October 30, 2021. 07:48 Acuity: DUSTIN 3 ic1 07:48 Method Of Arrival: EMS: [facility] ic1 09:47 Coronavirus screen: Vaccine status: Patient reports receiving the 2nd dose of the covid ic1 vaccine. Ebola Screen: No symptoms or risks identified at this time. Initial Sepsis Screen: Does the patient meet any 2 criteria? No. Patient's initial sepsis screen is negative. Does the patient have a suspected source of infection? No. Patient's initial sepsis screen is negative. Risk Assessment: Do you want to hurt yourself or someone else? Patient reports no desire to harm self or others. Onset of symptoms was October 30, 2021. - Immunization history: Last tetanus immunization: < 5 years ago. - Social history:: Smoking status: Patient denies any tobacco usage or history of. Screenin:48 Abuse screen: Denies threats or abuse. Denies injuries from another. Tuberculosis ic1 screening: No symptoms or risk factors identified. Primary Survey: 07:48 NO uncontrolled hemorrhage observed. A: The patient is alert. Airway: patent. ic1 Breathing/Chest: Respiratory pattern: regular, Respiratory effort: spontaneous, unlabored, Chest inspection: symmetrical rise and fall of the chest. Circulation: Heart tones present. Disability Alert. Exposure/Environment: A warming method has been applied: A warm blanket has been provided to the patient. 09:47 Reassessment Breathing/Chest Respiratory pattern Regular Respiratory effort Spontaneous ic1 Unlabored. Secondary Survey: 07:50 HEENT: No deficits noted. Gastrointestinal: No deficits noted. : No deficits noted. ic1 Musculoskeletal: No deficits noted. Assessment: 07:48 General: Appears in no apparent distress. Behavior is calm, cooperative. Pain: ic1 Complains of pain in face. Neuro: Level of Consciousness is awake, alert, obeys commands, Oriented to person, place, time, situation. EENT: No deficits noted. Cardiovascular: No deficits noted. Respiratory: No deficits noted. GI: No deficits noted. : No deficits noted. Derm: No deficits noted. Musculoskeletal: No deficits noted. Injury Description: hematoma noted to L side of pt's forehead. No bleeding noted. 08:57 Reassessment: Pt transported to CT via stretcher. In NAD. Family member at pt's bedside.ic1 Vital Signs: 07:48 BP 155 / 78; Pulse 72; Resp 16; Temp 97.8(O); Pulse Ox 100% on R/A; ic1 08:56 Pulse 96; Resp 18; Pulse Ox 100% on R/A; ic1 09:48 BP 161 / 82; Pulse 67; Resp 16; Pulse Ox 99% on R/A; ic1 [place] Coma Score: 07:48 Eye Response: spontaneous(4). Verbal Response: oriented(5). Motor Response: obeys ic1 commands(6). Total: 15. Trauma Score (Adult): 07:48 Eye Response: spontaneous(1); Verbal Response: oriented(1); Motor Response: obeys ic1 commands(2); Systolic BP: > 89 mm Hg(4); Respiratory Rate: 10 to 29 per min(4); [place] Score: 15; Trauma Score: 12 ED Course: 07:43 Patient arrived in ED. ss 07:44 Gordon Aviles PA is PHCP. cp 07:44 German Tinajero MD is Attending Physician. cp 07:48 Brianna Bowers, RN is Primary Nurse. ic1 07:48 Patient has correct armband on for positive identification. Bed in low position. Call ic1 light in reach. Side rails up X2. 07:48 Patient maintains SpO2 saturation greater than 95% on room air. ic1 07:50 Triage completed. ic1 09:03 CT Head C Spine In Process Unspecified. EDMS Administered Medications: 07:59 Drug: Tylenol 650 mg Route: PO; ic1 Intake: 07:48 PO: 0ml; Total: 0ml. ic1 Output: 07:48 Urine: 0ml; Total: 0ml. ic1 Outcome: 09:44 Discharge ordered by . yuriy 09:46 Admitted to ic1 09:46 Condition: stable 09:46 Patient's length of stay was not longer than 2 hours. 10:01 Patient left the ED. ic1 Signatures: Dispatcher [employer] EDMS Yael Moore RN RN ss Gordon Aviles PA PA cp Creggett, Iesha, RN RN ic1 Corrections: (The following items were deleted from the chart) 08:58 08:56 Reassessment: Patient appears in no apparent distress at this time. No changes ic1 from previously documented assessment. Patient is alert/active/playful, equal unlabored respirations, skin warm/dry/pink. Patient denies pain at this time. ic1
[2021-10-30 10:04] VITALS: TEMP 97.8
[2021-10-30 10:08] VITALS: BP 161/82; O2SAT 99
== END 2021-10-30 10:01 | disposition home or self-care (01) ==
LOC: ER 07:42
DX: S00.83XA Contusion of other part of head, initial encounter (principal); W18.30XA Fall on same level, unspecified, initial encounter
CPT/HCPCS: 70450; 72125; 99285

== ENCOUNTER 2022-08-03 13:03 | Emergency (ER) | payer OTHER ==
--- OUTSIDE RECORDS SUMMARY | 2022-08-03 13:12 | XMS REPORT | Continuity of Care Document ---
:1935 Author Organization [facility] t Address [address] [place] [address] Care Team Providers Name Role Phone Wyatt Moraes MD Primary Care Physician [phone] Deepti Velazquez RN Attending Clinician Unavailable Only, Ang Db Test Attending Clinician Unavailable Guanakito Hamlin Attending Clinician GUANAKITO NEVILLE Attending Clinician Unavailable Doctor Unassigned, Bendena Attending Clinician Unavailable WYATT MORAES Attending Clinician Unavailable Shantal Nino Attending Clinician Amy PHDAshley Attending Clinician ASHLEY REYES Attending Clinician Unavailable Wyatt Moraes MD Attending Clinician Donnell Odell MD Attending Clinician DONNELL ODELL Attending Clinician Unavailable DONNELL ODELL Attending Clinician Unavailable Lab, Adc Fam Pob I Attending Clinician Unavailable Yadira Tavares F Attending Clinician Stacy Cristobal LMSW Attending Clinician Paul Thomas DO Attending Clinician DAVID CHRISTOPHER Attending Clinician Unavailable Jimmy Harry DO Attending Clinician JIMMY HARRY Attending Clinician Unavailable JIMMY HARRY Attending Clinician Unavailable Justine Gonzáles Attending Clinician [facility] Attending Clinician Juan Rey Attending Clinician Malorie Ferreira Attending Clinician Sree Borden Attending Clinician DR WILMER IBARRA Attending Clinician Unavailable VISIT, NURSE MAURO XRAY Attending Clinician Unavailable [facility], DR SREE Miranda Attending Clinician Unavailable JIMMY HARRY Admitting Clinician Unavailable DR WILMER IBARRA Admitting Clinician Unavailable [facility], DR SREE Miranda Admitting Clinician Unavailable Payers Payer Name Policy Type Policy Number Effective Date Expiration Date S willa [employer] MEDICARE ADV [id number] 2018 00:00:00 BCBS TRADITIONAL [id number] 2016 00:00:00 Problems Condition Condition Condition Status Onset Resolution Last Treating Co mments Source Name Details Category Date Date Treatment Clinician Date Vitamin D Vitamin D Disease Active Uni vers deficiency deficiency -12 it y of 00:00: [place] [facility] Hyperchole Hyperchole Disease Active U kirby sterolemia sterolemia -12 it y of 00:00: [place] [facility] Dementia Dementia Disease Active Unive rs without without 09 [place]y of behavioral behavioral [place] disturbanc disturbanc 00 Me dical e, e, Branch unspecifie unspecifie d dementia d dementia type type Cerebrovas Cerebrovas Disease Active U kirby cular cular 5-05 ity of small small 00:00: [place] vessel vessel 00 Medical disease disease Branch Elevated Elevated Disease Active Metho di lipase lipase 06-21 00:00: Hospita 00 l 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 06-21 00:00: [facility] 00 l Malignant Malignant Disease Active 2019-0 Met hodi neoplasm neoplasm 9-17 st of lung of lung 00:00: [facility] 00 l Pancreas Pancreas Disease Active 2019- Unive rs cyst cyst 8- ity of 00:00: [place] 00 Medical Branch Lesion of Lesion of Disease Active 2019- Uni vers pancreas pancreas 8- ity of 00:00: [place] 00 Medical Branch Fatty Fatty Disease Active 2019-0 Univers liver liver 7-26 ity of 00:00: [place] 00 Medical Branch Elevated Elevated Disease Active 2019- Unive rs lipase lipase 7-15 ity of 00:00: [place] 00 Medical Branch History of History of Disease Active 2019- U nivers lung lung 7-15 ity of cancer cancer 00:00: [place] 00 Medical Branch Abnormal Abnormal Disease Active 2018- Unive rs chest CT chest CT 7-15 ity of 00:00: [place] 00 Medical Branch Adjustment Adjustment Disease Active 2019- U nivers insomnia insomnia 7-15 ity of 00:00: [place] 00 Medical Branch Memory Memory Disease Active 2019-0 Univers disturbanc disturbanc 7-15 it y of e e 00:00: [place] 00 Medical Branch Palpitatio Palpitatio Disease Active 2019-0 U nivers ns ns 7-15 ity of 00:00: [place] 00 Medical Branch Elevated Elevated Disease Active 2018- Unive rs lipase lipase 7-15 ity of 00:00: [place] 00 Medical Branch Abnormal Abnormal Disease Active 2018- Unive rs chest CT chest CT 7-15 ity of 00:00: [place] 00 Medical Branch Adjustment Adjustment Disease Active 2019- U nivers insomnia insomnia 7-15 ity of 00:00: [place] 00 Medical Branch History of History of Disease Active 2019- U nivers lung lung 7-15 ity of cancer cancer 00:00: [place] 00 Medical Branch Essential Essential Disease Active 2019- Uni vers hypertensi hypertensi 5-28 it y of on on 00:00: [place] [facility] Malaise Malaise Problem Active 2020-03-03 Me moria and and 03-06 00:06:00 l fatigue fatigue 00:00: Jesus Alberto (finding) (finding) 00 Active 03/06/2015 Problem 03/03/2020 Data migrated from [employer] on 04/11/15. Medical Group Aftercare Aftercare Problem Active 2017-10-10 Memoria (regime/th (regime/03-06 06:38:38 l erapy) erapy) 00:00: [place] Active 00 03/06/2015 Problem 10/10/2017 Data migrated from [employer] on 04/11/15. Medical Group Screening Screening Problem Active 2017-10-10 Memoria mammograph mammograph 3-18 06:38:38 l y y 00:00: Jesus Alberto (procedure (procedure 00 ) ) Active 12/20/2014 Problem 10/10/2017 Data migrated from [employer] on 04/11/15.
Data migrated from [employer] on 04/11/15.
Data migrated from [employer] on 03/06/15. Medical Group Bursitis Bursitis Problem Active 2020-03-03 Memoria (disorder) (disorder) 05-01 00:06:00 l Active 00:00: Jesus Alberto 05/01/2014 00 Problem 03/03/2020 Data migrated from [employer] on 03/03/15. 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 Medical Group Pain in Pain in Problem Active 2020-03-03 Me moria wrist wrist 04-04 00:06:00 l (finding) (finding) 00:00: Herm tao Active 00 04/04/2014 Problem 03/03/2020 Data migrated from [employer] on 03/03/15. Medical Group Cervical Cervical Problem Active 2020-03-03 Memoria lymphadeni lymphadeni 01-31 00:06:00 l tis tis 00:00: Jesus Alberto (disorder) (disorder) 00 Active 01/31/2014 Problem 03/03/2020 Data migrated from [employer] on 03/03/15. 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 Medical Group Atrial Atrial Problem Active 2012-102020-03-03 Mem oria fibrillati fibrillati 10-30 00:06:00 l on on 00:00: [place] (disorder) (disorder) 00 Active 08/30/2013 Problem 03/03/2020 Data migrated from [employer] on 03/03/15. Medical Group Lung mass Lung Problem Active 2012-102017-10-10 Me moria (finding) mass 10-30 06:38:38 l (finding) 00:00: [place] Active 00 08/30/2013 Problem 10/10/2017 Data migrated from [employer] on 03/03/15. Medical Group Acute Acute Problem Active 2020-03-03 Memor ia urinary urinary 00:06:00 l tract tract [place] infection infection (disorder) (disorder) Active Problem 03/03/2020 Medical Group At risk At risk Problem Active 2020-03-03 Me moria for for 00:06:00 l negative negative Juan Luis n response response to to medication medication (finding) (finding) Active Problem 03/03/2020 Medical Group Benign Benign Problem Active 2020-03-03 Mem oria essential essential 00:06:00 l hypertensi hypertensi [place] on on (disorder) (disorder) Active Problem 03/03/2020 Medical Group Dyspnea on Dyspnea Problem Active 2020-03-03 Memoria exertion on 00:06:00 l (finding) exertion Jolene nn (finding) Active Problem 03/03/2020 Medical Group Hyperlipid Hyperlipi Problem Active 2020-03-03 Memoria emia demia 00:06:00 l (disorder) (disorder) [place] Active Problem 03/03/2020 Data migrated from [employer] on 03/03/15. Medical Group Hypertensi Hypertens Problem Active 2020-03-03 Memoria ve ernestine 00:06:00 l disorder, disorder, Herm tao systemic systemic arterial arterial (disorder) (disorder) Active Problem 03/03/2020 Data migrated from [employer] on 03/03/15. 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 00:06:00 l disorder disorder Juan Luis n (disorder) (disorder) Active Problem 03/03/2020 Medical Group Obesity Obesity Problem Active 2020-03-03 Me moria (disorder) (disorder) 00:06:00 l Active Jesus Alberto Problem 03/03/2020 Medical Group Pain in Pain in Problem Active 2020-03-03 Me moria lower limb lower limb 00:06:00 l (finding) (finding) Herm tao Active Problem 03/03/2020 Medical Group Sciatica Sciatica Problem Active 2020-03-03 Memoria (disorder) (disorder) 00:06:00 l Active [place] Problem 03/03/2020 Medical Group Seizure Seizure Problem Active 2020-03-03 Me moria (finding) (finding) 00:06:00 l Active Jesus Alberto Problem 03/03/2020 Medical Group Insomnia Insomnia Problem Active 2020-03-03 Memoria (disorder) (disorder) 00:06:00 l Active [place] Problem 03/03/2020 Medical Group Acute Acute Problem Resolve 2012-2020-03-03 2020-03-03 Memoria bronchitis bronchitis d 1- 00:06:00 00:06:00 l (disorder) (disorder) 00:00: [place] Resolved 00 08/30/2013 Problem 03/03/2020 Data migrated from [employer] on 04/21/15. Medical Group Dizziness Dizziness Disease Resolve 2019-04-18 2019-04-19 Univers d - 00:00:00 04:34:46 ity of 00:00: [place] 00 Medical Branch UTI UTI Disease Resolve 2019-04-18 2019-04-19 Univers (urinary (urinary d 03-01 00:00:00 04:34:38 it y of tract tract 00:00: [place] infection) infection) 00 Va dical Branch Allergies, Adverse Reactions, Alerts Allergy Allergy Status Severity Reaction(s) Onset Inactive Treating Comm ents Source Name Type Date Date Clinician Gemiflox Propensi Active Anaphylaxis U nivers acin ty to 06-21 ity of adverse 00:00: [place] reaction 00 Medical s Branch GEMIFLOX DRUG Active High Anaphylaxis Uni vers ACIN INGREDI 06-21 ity of 00:00: [place] 00 Medical Branch Gemiflox Propensi Active Method i acin ty to 06-21 st adverse 00:00: Hospita reaction 00 l s to drug Talwin Talwin Active Memoria 3-18 l 00:00: [place] 00 NO KNOWN Drug Active Univers ALLERGIE Class ity of S [facility] Factive Factive Active Memoria l Jesus Alberto Family History Family Member Diagnosis Comments Start Date Stop Date Source Natural father Prostate cancer [facility] Natural mother Skin cancer [facility] Social History Social Habit Start Date Stop Date Quantity Comments Source Exposure to Not sure University of SARS-CoV-2 [facility] (event) Branch History SDOH [facility] Alcohol Binge History [facility] Alcohol Std Drinks Alcohol intake 2019-08-16 2019-08-16 Lifetime [facility] 00:00:00 00:00:00 non-drinker (finding) History SDOH 2019-08-16 2019-08-16 1 [facility] spital Alcohol Frequency 00:00:00 00:00:00 Tobacco use and 2019-03-01 2019-03-01 Never used Universit y of exposure 00:00:00 00:00:00 [facility] Sex [birth year] [facility] 00:00:00 00:00:00 Smoking Status Start Date Stop Date Source Social History [facility] Medications Ordered Filled Start Stop Current Ordering Indication Dosage Frequency Signature Comments Components Source Medication Medication Date Date Medication? Clinician (SIG) Name Name cholecalcif Yes [id number] 1000U Take 1 Univers ajith, 5-12 tablet by ity of vitamin D3, 00:00: mouth [place] (VITAMIN 00 daily. Medical D3) 25 mcg Take with Bran ch (1,000 food. unit) tablet rosuvastati Yes [id number] 10mg Take 1 Univers n 10 mg 5-12 tablet by ity of tablet 00:00: mouth at [place] 00 bedtime. [facility] Branch cholecalcif Yes [id number] 1000U Take 1 Univers ajith, 5-12 tablet by ity of vitamin D3, 00:00: mouth [place] (VITAMIN 00 daily. Medical D3) 25 mcg Take with Bran ch (1,000 food. unit) tablet rosuvastati 0 Yes [id number] 10mg Take 1 Univers n 10 mg 5-12 tablet by ity of tablet 00:00: mouth at [place] 00 bedtime. Medical Branch cholecalcif Yes [id number] 1000U Take 1 Univers ajith, 5-12 tablet by ity of vitamin D3, 00:00: mouth [place] (VITAMIN 00 daily. Medical D3) 25 mcg Take with Bran ch (1,000 food. unit) tablet rosuvastati Yes [id number] 10mg Take 1 Univers n 10 mg 5-12 tablet by ity of tablet 00:00: mouth at [place] 00 bedtime. Medical Branch cholecalcif Yes [id number] 1000U Take 1 Univers ajith, 5-12 tablet by ity of vitamin D3, 00:00: mouth [place] (VITAMIN 00 daily. Medical D3) 25 mcg Take with Bran ch (1,000 food. unit) tablet rosuvastati Yes [id number] 10mg Take 1 Univers n 10 mg 5-12 tablet by ity of tablet 00:00: mouth at [place] 00 bedtime. Medical Branch cholecalcif Yes [id number] 1000U Take 1 Univers ajith, 5-12 tablet by ity of vitamin D3, 00:00: mouth [place] (VITAMIN 00 daily. Medical D3) 25 mcg Take with Bran ch (1,000 food. unit) tablet rosuvastati Yes [id number] 10mg Take 1 Univers n 10 mg 5-12 tablet by ity of tablet 00:00: mouth at [place] 00 bedtime. Medical Branch cholecalcif Yes [id number] 1000U Take 1 Univers ajith, 5-12 tablet by ity of vitamin D3, 00:00: mouth [place] (VITAMIN 00 daily. Medical D3) 25 mcg Take with Bran ch (1,000 food. unit) tablet rosuvastati Yes [id number] 10mg Take 1 Univers n 10 mg 5-12 tablet by ity of tablet 00:00: mouth at [place] 00 bedtime. Medical Branch cholecalcif Yes [id number] 1000U Take 1 Univers ajith, 5-12 tablet by ity of vitamin D3, 00:00: mouth [place] (VITAMIN 00 daily. Medical D3) 25 mcg Take with Bran ch (1,000 food. unit) tablet rosuvastati Yes [id number] 10mg Take 1 Univers n 10 mg 5-12 tablet by ity of tablet 00:00: mouth at [place] 00 bedtime. Medical Branch cholecalcif Yes [id number] 1000U Take 1 Univers ajith, 5-12 tablet by ity of vitamin D3, 00:00: mouth [place] (VITAMIN 00 daily. Medical D3) 25 mcg Take with Bran ch (1,000 food. unit) tablet rosuvastati Yes [id number] 10mg Take 1 Univers n 10 mg 5-12 tablet by ity of tablet 00:00: mouth at [place] 00 bedtime. Medical Branch cholecalcif Yes [id number] 1000U Take 1 Univers ajith, 5-12 tablet by ity of vitamin D3, 00:00: mouth [place] (VITAMIN 00 daily. Medical D3) 25 mcg Take with Bran ch (1,000 food. unit) tablet rosuvastati Yes [id number] 10mg Take 1 Univers n 10 mg 5-12 tablet by ity of tablet 00:00: mouth at [place] 00 bedtime. Medical Branch metoprolol Yes 25mg Take 25 mg U nivers succinate 5-11 by mouth ity of XL 25 mg 24 18:19: [place]. [place] tablet 17 [place] [facility] metoprolol Yes 25mg Take 25 mg U nivers succinate 5-11 by mouth ity of XL 25 mg 24 18:19: [place]. [place] tablet 17 [place] [facility] metoprolol Yes 25mg Take 25 mg U nivers succinate 5-11 by mouth ity of XL 25 mg 24 18:19: daily. [place] tablet 17 [facility] metoprolol Yes 25mg Take 25 mg U nivers succinate 5-11 by mouth ity of XL 25 mg 24 18:19: daily. [place] tablet 17 [facility] metoprolol Yes 25mg Take 25 mg U nivers succinate 5-11 by mouth ity of XL 25 mg 24 18:19: daily. [place] tablet 17 [facility] Branch metoprolol Yes 25mg Take 25 mg U nivers succinate 5-11 by mouth ity of XL 25 mg 24 18:19: daily. [place] tablet 17 [facility] Branch metoprolol Yes 25mg Take 25 mg U nivers succinate 5-11 by mouth ity of XL 25 mg 24 18:19: daily. [place] tablet 17 [facility] Branch metoprolol Yes 25mg Take 25 mg U nivers succinate 5-11 by mouth ity of XL 25 mg 24 18:19: daily. [place] tablet 17 [facility] Branch metoprolol Yes 25mg Take 25 mg U nivers succinate 5-11 by mouth ity of XL 25 mg 24 13:19: daily. [place] tablet 17 [facility] metoprolol Yes 25mg Take 25 mg U nivers succinate 5-11 by mouth ity of XL 25 mg 24 13:19: daily. [place] tablet 17 [facility] metoprolol Yes 25mg Take 25 mg U nivers succinate 5-11 by mouth ity of XL 25 mg 24 13:19: daily. [place] tablet 17 [facility] rivastigmin Yes [id number] 1{patch Apply 1 Univers e 4.6 mg/24 5-11 } Patch to ity of hour patch 00:00: skin [place] 00 daily. Medical Branch rivastigmin Yes [id number] 1{patch Apply 1 Univers e 4.6 mg/24 5-11 } Patch to ity of hour patch 00:00: skin [place] 00 daily. Medical Branch rivastigmin Yes [id number] 1{patch Apply 1 Univers e 4.6 mg/24 5-11 } Patch to ity of hour patch 00:00: skin [place] 00 daily. Medical Branch rivastigmin Yes [id number] 1{patch Apply 1 Univers e 4.6 mg/24 5-11 } Patch to ity of hour patch 00:00: skin [place] 00 daily. Medical Branch rivastigmin Yes [id number] 1{patch Apply 1 Univers e 4.6 mg/24 5-11 } Patch to ity of hour patch 00:00: skin [place] 00 daily. Medical Branch rivastigmin Yes [id number] 1{patch Apply 1 Univers e 4.6 mg/24 5-11 } Patch to ity of hour patch 00:00: skin [place] 00 daily. Medical Branch rivastigmin 2020- Yes [id number] 1{patch Apply 1 Univers e 4.6 mg/24 5-11 } Patch to ity of hour patch 00:00: skin [place] 00 daily. Medical Branch rivastigmin 2020-0 Yes [id number] 1{patch Apply 1 Univers e 4.6 mg/24 5-11 } Patch to ity of hour patch 00:00: skin [place] 00 daily. Medical Branch rivastigmin 2020- Yes [id number] 1{patch Apply 1 Univers e 4.6 mg/24 5-11 } Patch to ity of hour patch 00:00: skin [place] 00 daily. Medical Branch rivastigmin 2020- Yes [id number] 1{patch Apply 1 Univers e 4.6 mg/24 5-11 } Patch to ity of hour patch 00:00: skin [place] 00 daily. Medical Branch rivastigmin Yes [id number] 1{patch Apply 1 Univers e 4.6 mg/24 5-11 } Patch to ity of hour patch 00:00: skin [place] 00 daily. Medical Branch acetaminoph 2020- No 1000mg 1,000 mg, Univers en -01-28 Oral, ity of (TYLENOL) 17:15: 16:19 ONCE, 1 [place] tablet 00 :00 dose, Mon Medical 1,000 mg 01/28/21 at [facility] h 1215, Routine ibuprofen 2020-0 Yes [id number] 600mg Take 1 U nivers 600 mg 4-26 tablet by ity of tablet 00:00: mouth [place] 00 every 6 Medical (six) Branch hours as needed for Pain (scale 4-6). ibuprofen 2020-0 Yes [id number] 600mg Take 1 U nivers 600 mg 4-26 tablet by ity of tablet 00:00: mouth [place] 00 every 6 Medical (six) Branch hours as needed for Pain (scale 4-6). ibuprofen 2020-0 Yes [id number] 600mg Take 1 U nivers 600 mg 4-26 tablet by ity of tablet 00:00: mouth [place] 00 every 6 Medical (six) Branch hours as needed for Pain (scale 4-6). ibuprofen 2020- No [id number] 600mg Take 1 Univers 600 mg 01-28-29 tablet by ity of tablet 00:00: 00:00 mouth [place] 00 :00 every 6 Medical (six) Branch hours as needed for Pain (scale 4-6). ibuprofen 2020- No [id number] 600mg Take 1 Univers 600 mg 01-28- tablet by ity of tablet 00:00: 00:00 mouth [place] 00 :00 every 6 Medical (six) Branch hours as needed for Pain (scale 4-6). methocarbam Yes 500mg 500 mg, Un daina oL 3-18 Oral, QID, ity of (ROBAXIN) 17:00: First dose [place] tablet 500 00 on [facility] Medical mg 12/20/20 at Branch 1200, Until Discontinu ed, Routine ketorolac 2020- No 30mg 30 mg, Unive rs (TORADOL) 12-20-18 Intramuscu ity of injection 16:30: 15:25 lar, ONCE, [place] 30 mg 00 :00 1 dose, Medical [facility] Branch 12/20/20 at 1130, SHANTA
Fa culty member approving Restricted medication : PAUL THOMAS naproxen 0 Yes [id number] 550mg Take 1 Un daina sodium 3-18 tablet by ity of (ANAPROX 00:00: mouth 2 [place] DS) 550 mg 00 (two) Medical tablet times Branch daily with meals. naproxen Yes [id number] 550mg Take 1 Un daina sodium 3-18 tablet by ity of (ANAPROX 00:00: mouth 2 [place] DS) 550 mg 00 (two) Medical tablet times Branch daily with meals. naproxen 0 Yes [id number] 550mg Take 1 Un daina sodium 3-18 tablet by ity of (ANAPROX 00:00: mouth 2 [place] DS) 550 mg 00 (two) Medical tablet times Branch daily with meals. naproxen Yes [id number] 550mg Take 1 Un daina sodium 3-18 tablet by ity of (ANAPROX 00:00: mouth 2 [place] DS) 550 mg 00 (two) Medical tablet times Branch daily with meals. naproxen 0 Yes [id number] 550mg Take 1 Un daina sodium 3-18 tablet by ity of (ANAPROX 00:00: mouth 2 [place] DS) 550 mg 00 (two) Medical tablet times Branch daily with meals. naproxen 0 Yes [id number] 550mg Take 1 Un daina sodium 3-18 tablet by ity of (ANAPROX 00:00: mouth 2 [place] DS) 550 mg 00 (two) Medical tablet times Branch daily with meals. naproxen 0 Yes [id number] 550mg Take 1 Un daina sodium 3-18 tablet by ity of (ANAPROX 00:00: mouth 2 [place] DS) 550 mg 00 (two) Medical tablet times Branch daily with meals. naproxen 0 Yes [id number] 550mg Take 1 Un daina sodium 3-18 tablet by ity of (ANAPROX 00:00: mouth 2 [place] DS) 550 mg 00 (two) Medical tablet times Branch daily with meals. naproxen 0 Yes [id number] 550mg Take 1 Un daina sodium 3-18 tablet by ity of (ANAPROX 00:00: mouth 2 [place] DS) 550 mg 00 (two) Medical tablet times Branch daily with meals. naproxen 0 Yes [id number] 550mg Take 1 Un daina sodium 3-18 tablet by ity of (ANAPROX 00:00: mouth 2 [place] DS) 550 mg 00 (two) Medical tablet times Branch daily with meals. naproxen 2020- No [id number] 550mg Take 1 U nivers sodium 3-18 04-29 tablet by ity of (ANAPROX 00:00: 00:00 mouth 2 [place] DS) 550 mg 00 :00 (two) Medical tablet times Branch daily with meals. naproxen 0 2020- No [id number] 550mg Take 1 U nivers sodium 3-18 04-29 tablet by ity of (ANAPROX 00:00: 00:00 mouth 2 [place] DS) 550 mg 00 :00 (two) Medical tablet times Branch daily with meals. methocarbam 2020- No [id number] 500mg Take 1 Univers oL 500 mg 3-18 03-24 tablet by ity of tablet 00:00: 04:59 mouth 3 [place] 00 :00 (three) Medical times Branch daily for 5 days. Metoprolol 2020-0 Yes = 1 tab, Mem oria Succinate 5-22 PO, BID, # l ER 50 mg 20:16: 60 tab, 11 Her lira oral 00 Refill(s), tablet, Pharmacy: extended [facility] [id number] benzonatate 2019- 2020- No [id number] 100mg Take 1 Univers (TESSALON 10-31 capsule by itdick [email or web address]) 100 00:00: 05:59 mouth 3 [place] mg capsule 00 :00 (three) Medica l times Branch daily for 14 days. benzonatate 2019- 2020- No [id number] 100mg Take 1 Univers (TESSALON 10-31 capsule by Kutuan [email or web address]) 100 00:00: 05:59 mouth 3 [place] mg capsule 00 :00 (three) Medica l times Branch daily for 14 days. benzonatate 2019- 2020- No [id number] 100mg Take 1 Univers (TESSALON 10-31 capsule by Kutuan SHRAVAN) 100 00:00: 05:59 mouth 3 [place] mg capsule 00 :00 (three) Medica l times Branch daily for 14 days. methylPREDN 2020- No [id number] Take by [place] [facility] 4 10-31 mouth ity of mg tablets 00:00: 05:59 SEE-INSTRU [place] 00 :00 CTIONS for Medical 6 days. Branch follow package directions methylPREDN 2019- 2020- No [id number] Take by [place] [facility] 4 10-31- mouth ity of mg tablets 00:00: 05:59 SEE-INSTRU [place] 00 :00 CTIONS for Medical 6 days. Branch follow package directions methylPREDN 2019-0 2020- No [id number] Take by [place] [facility] 4 10-31 mouth ity of mg tablets 00:00: 05:59 SEE-INSTRU [place] 00 :00 CTIONS for Medical 6 days. Branch follow package directions magnesium 2018- Yes [id number] 1{tbl} Take 1 Univers oxide 400 9-18 tablet by ity o f mg 00:00: mouth [place] magnesium 00 daily. Medical Tab Branch magnesium 2018-0 Yes [id number] 1{tbl} Take 1 Univers oxide 400 9-18 tablet by ity o f mg 00:00: mouth [place] magnesium 00 daily. Medical Tab Branch magnesium 2019-0 Yes [id number] 1{tbl} Take 1 Univers oxide 400 9-18 tablet by ity o f mg 00:00: mouth [place] magnesium 00 daily. Medical Tab Branch magnesium 2019-0 Yes [id number] 1{tbl} Take 1 Univers oxide 400 9-18 tablet by ity o f mg 00:00: mouth [place] magnesium 00 daily. Medical Tab Branch magnesium 2019-0 Yes [id number] 1{tbl} Take 1 Univers oxide 400 9-18 tablet by ity o f mg 00:00: mouth [place] magnesium 00 daily. Medical Tab Branch magnesium 2019-0 Yes [id number] 1{tbl} Take 1 Univers oxide 400 9-18 tablet by ity o f mg 00:00: mouth [place] magnesium 00 daily. [facility] magnesium 2019-0 Yes [id number] 1{tbl} Take 1 [facility] oxide 400 9-18 tablet by ity o f mg 00:00: mouth [place] magnesium 00 daily. [facility] magnesium 2019-0 Yes [id number] 1{tbl} Take 1 [facility] oxide 400 9-18 tablet by ity o f mg 00:00: mouth [place] magnesium 00 daily. [facility] magnesium 2019-0 Yes [id number] 1{tbl} Take 1 [facility] oxide 400 9-18 tablet by ity o f mg 00:00: mouth [place] magnesium 00 daily. [facility] magnesium 2019-0 Yes [id number] 1{tbl} Take 1 [facility] oxide 400 9-18 tablet by ity o f mg 00:00: mouth [place] magnesium 00 daily. [facility] magnesium 2019-0 Yes [id number] 1{tbl} Take 1 [facility] oxide 400 9-18 tablet by ity o f mg 00:00: mouth [place] magnesium 00 daily. [facility] magnesium 2019-0 Yes [id number] 1{tbl} Take 1 [facility] oxide 400 9-18 tablet by ity o f mg 00:00: mouth [place] magnesium 00 daily. [facility] magnesium 2019-0 Yes [id number] 1{tbl} Take 1 [facility] oxide 400 9-18 tablet by ity o f mg 00:00: mouth [place] magnesium 00 daily. [facility] magnesium 2019-0 Yes [id number] 1{tbl} Take 1 [facility] oxide 400 9-18 tablet by ity o f mg 00:00: mouth [place] magnesium 00 daily. [facility] magnesium 2019-0 Yes [id number] 1{tbl} Take 1 [facility] oxide 400 9-18 tablet by ity o f mg 00:00: mouth [place] magnesium 00 daily. [facility] magnesium 2019-0 Yes [id number] 1{tbl} Take 1 [facility] oxide 400 9-18 tablet by ity o f mg 00:00: mouth [place] magnesium 00 daily. [facility] magnesium 2019-0 Yes [id number] 1{tbl} Take 1 [facility] oxide 400 9-18 tablet by ity o f mg 00:00: mouth [place] magnesium 00 daily. [facility] magnesium 2019-0 Yes [id number] 1{tbl} Take 1 [facility] oxide 400 9-18 tablet by ity o f mg 00:00: mouth [place] magnesium 00 daily. [facility] magnesium 2018-0 Yes [id number] 1{tbl} Take 1 [facility] oxide 400 9-18 tablet by ity o f mg 00:00: mouth [place] magnesium 00 daily. [facility] magnesium 2018-0 Yes [id number] 1{tbl} Take 1 [facility] oxide 400 9-18 tablet by ity o f mg 00:00: mouth [place] magnesium 00 daily. [facility] magnesium 2019-0 Yes [id number] 1{tbl} Take 1 [facility] oxide 400 9-18 tablet by ity o f mg 00:00: mouth [place] magnesium 00 daily. [facility] magnesium 2019-0 Yes [id number] 1{tbl} Take 1 [facility] oxide 400 9-18 tablet by ity o f mg 00:00: mouth [place] magnesium 00 daily. [facility] magnesium 2019-0 Yes [id number] 1{tbl} Take 1 [facility] oxide 400 9-18 tablet by ity o f mg 00:00: mouth [place] magnesium 00 daily. [facility] magnesium 2019-0 Yes [id number] 1{tbl} Take 1 [facility] oxide 400 9-18 tablet by ity o f mg 00:00: mouth [place] magnesium 00 daily. [facility] magnesium 2019-0 2020- No [id number] 1{tbl} Take 1 [facility] oxide 400 9-18 04-29 tablet by ity of mg 00:00: 00:00 mouth [place] magnesium 00 :00 daily. [facility] magnesium 2021- No [id number] 1{tbl} Take 1 [facility] oxide 400 9-18 04-29 tablet by ity of mg 00:00: 00:00 mouth [place] magnesium 00 :00 daily. [facility] Trazodone Yes 50 mg = 1 Mem [facility] Hydrochlori 7-29 tab, PO, l de 50 MG 16:18: Bedtime [place] n Oral Tablet 00 traZODONE Yes [id number] 25mg Take 0.5-1 [facility] 50 mg 7-15 tablets by ity of tablet 00:00: mouth at [place] [address] bedtime. [facility] traZODONE Yes [id number] 25mg Take 0.5-1 [facility] 50 mg 7-15 tablets by ity of tablet 00:00: mouth at [place] [address] bedtime. [facility] traZODONE Yes [id number] 25mg Take 0.5-1 [facility] 50 mg 7-15 tablets by ity of tablet 00:00: mouth at [place] [address] bedtime. [facility] traZODONE Yes [id number] 25mg Take 0.5-1 [facility] 50 mg 7-15 tablets by ity of tablet 00:00: mouth at [place] [address] bedtime. [facility] traZODONE Yes [id number] 25mg Take 0.5-1 [facility] 50 mg 7-15 tablets by ity of tablet 00:00: mouth at [place] [address] bedtime. [facility] traZODONE Yes [id number] 25mg Take 0.5-1 [facility] 50 mg 7-15 tablets by ity of tablet 00:00: mouth at [place] [address] bedtime. [facility] traZODONE Yes [id number] 25mg Take 0.5-1 [facility] 50 mg 7-15 tablets by ity of tablet 00:00: mouth at [place] [address] bedtime. [facility] traZODONE Yes [id number] 25mg Take 0.5-1 [facility] 50 mg 7-15 tablets by ity of tablet 00:00: mouth at [place] [address] bedtime. [facility] traZODONE Yes [id number] 25mg Take 0.5-1 [facility] 50 mg 7-15 tablets by ity of tablet 00:00: mouth at [place] [address] bedtime. [facility] traZODONE 2019-0 Yes [id number] 25mg Take 0.5-1 [facility] 50 mg 7-15 tablets by ity of tablet 00:00: mouth at [place] [address] bedtime. [facility] traZODONE 2019-0 Yes [id number] 25mg Take 0.5-1 [facility] 50 mg 7-15 tablets by ity of tablet 00:00: mouth at [place] [address] bedtime. [facility] traZODONE 2019-0 Yes [id number] 25mg Take 0.5-1 [facility] 50 mg 7-15 tablets by ity of tablet 00:00: mouth at [place] [address] bedtime. [facility] traZODONE 2019-0 Yes [id number] 25mg Take 0.5-1 [facility] 50 mg 7-15 tablets by ity of tablet 00:00: mouth at [place] [address] bedtime. [facility] traZODONE 2019-0 Yes [id number] 25mg Take 0.5-1 [facility] 50 mg 7-15 tablets by ity of tablet 00:00: mouth at [place] [address] bedtime. [facility] traZODONE 2019-0 Yes [id number] 25mg Take 0.5-1 [facility] 50 mg 7-15 tablets by ity of tablet 00:00: mouth at [place] [address] bedtime. [facility] traZODONE 2019-0 Yes [id number] 25mg Take 0.5-1 [facility] 50 mg 7-15 tablets by ity of tablet 00:00: mouth at [place] [address] bedtime. [facility] traZODONE 2019-0 Yes [id number] 25mg Take 0.5-1 [facility] 50 mg 7-15 tablets by ity of tablet 00:00: mouth at [place] [address] bedtime. [facility] traZODONE 2019-0 Yes [id number] 25mg Take 0.5-1 [facility] 50 mg 7-15 tablets by ity of tablet 00:00: mouth at [place] [address] bedtime. [facility] traZODONE 2019-0 Yes [id number] 25mg Take 0.5-1 [facility] 50 mg 7-15 tablets by ity of tablet 00:00: mouth at [place] [address] bedtime. [facility] traZODONE 2019-0 Yes [id number] 25mg Take 0.5-1 [facility] 50 mg 7-15 tablets by ity of tablet 00:00: mouth at [place] [address] bedtime. [facility] traZODONE 2019-0 Yes [id number] 25mg Take 0.5-1 [facility] 50 mg 7-15 tablets by ity of tablet 00:00: mouth at [place] [address] bedtime. [facility] traZODONE 2018-0 Yes [id number] 25mg Take 0.5-1 [facility] 50 mg 7-15 tablets by ity of tablet 00:00: mouth at [place] [address] bedtime. [facility] traZODONE 2018-0 Yes [id number] 25mg Take 0.5-1 [facility] 50 mg 7-15 tablets by ity of tablet 00:00: mouth at [place] [address] bedtime. [facility] traZODONE 2018-0 Yes [id number] 25mg Take 0.5-1 [facility] 50 mg 7-15 tablets by ity of tablet 00:00: mouth at [place] [address] bedtime. [facility] traZODONE 2018-0 Yes [id number] 25mg Take 0.5-1 [facility] 50 mg 7-15 tablets by ity of tablet 00:00: mouth at [place] [address] bedtime. [facility] traZODONE 2018-0 Yes [id number] 25mg Take 0.5-1 [facility] 50 mg 7-15 tablets by ity of tablet 00:00: mouth at [place] [address] bedtime. [facility] traZODONE 2018-0 Yes [id number] 25mg Take 0.5-1 [facility] 50 mg 7-15 tablets by ity of tablet 00:00: mouth at [place] [address] bedtime. [facility] traZODONE 2018-0 Yes [id number] 25mg Take 0.5-1 [facility] 50 mg 7-15 tablets by ity of tablet 00:00: mouth at [place] [address] bedtime. [facility] traZODONE 2019-0 Yes [id number] 25mg Take 0.5-1 [facility] 50 mg 7-15 tablets by ity of tablet 00:00: mouth at [place] [address] bedtime. [facility] traZODONE 2019-0 Yes [id number] 25mg Take 0.5-1 [facility] 50 mg 7-15 tablets by ity of tablet 00:00: mouth at [place] [address] bedtime. [facility] traZODONE 2019-0 Yes [id number] 25mg Take 0.5-1 [facility] 50 mg 7-15 tablets by ity of tablet 00:00: mouth at [place] [address] bedtime. [facility] traZODONE 2019-0 Yes [id number] 25mg Take 0.5-1 [facility] 50 mg 7-15 tablets by ity of tablet 00:00: mouth at [place] [address] bedtime. [facility] traZODONE 2018-0 Yes [id number] 25mg Take 0.5-1 [facility] 50 mg 7-15 tablets by ity of tablet 00:00: mouth at [place] [address] bedtime. [facility] traZODONE 2018-0 1- No [id number] 25mg Take 0.5-1 [facility] 50 mg 7-15 04-29 tablets by ity of tablet 00:00: 00:00 mouth at [place] 00 :00 bedtime. [facility] traZODONE 2018-0 2020- No [id number] 25mg Take 0.5-1 [facility] 50 mg 7-15 04-29 tablets by ity of tablet 00:00: 00:00 mouth at [place] 00 :00 bedtime. [facility] metoprolol 0 Yes 50mg Take 50 mg U nivers succinate 7-11 by mouth. ity o f XL 50 mg 24 00:00: [place] hr tablet 00 [facility] metoprolol 0 Yes 50mg Take 50 mg U nivers succinate 7-11 by mouth. ity o f XL 50 mg 24 00:00: [place] hr tablet 00 [facility] metoprolol 0 Yes 50mg Take 50 mg U nivers succinate 7-11 by mouth. ity o f XL 50 mg 24 00:00: [place] hr tablet 00 [facility] metoprolol 2018-0 Yes 50mg Take 50 mg U nivers succinate 7-11 by mouth. ity o f XL 50 mg 24 00:00: [place] hr tablet 00 [facility] [place] metoprolol 2018-0 Yes 50mg Take 50 mg U nivers succinate 7-11 by mouth. ity o f XL 50 mg 24 00:00: [place] hr tablet 00 [facility] metoprolol 2019-0 Yes 50mg Take 50 mg U nivers succinate 7-11 by mouth. ity o f XL 50 mg 24 00:00: [place] hr tablet 00 [facility] [place] metoprolol 2018-0 Yes 50mg Take 50 mg U nivers succinate 7-11 by mouth. ity o f XL 50 mg 24 00:00: [place] hr tablet 00 [facility] [place] metoprolol 2018-0 Yes 50mg Take 50 mg U nivers succinate 7-11 by mouth. ity o f XL 50 mg 24 00:00: [place] hr tablet [facility] metoprolol 2019-0 Yes 50mg Take 50 [...] 50 mg 24 00:00: [place] hr tablet [facility] metoprolol 2019-0 Yes 50mg Take 50 mg U nivers succinate 7-11 by mouth. ity o f XL 50 mg 24 00:00: [place] hr tablet [facility] metoprolol 2019-0 Yes 50mg Take 50 [...] [place] hr tablet 00 [facility] metoprolol Yes 50mg Take 50 mg U nivers succinate 7-11 by mouth. ity o f XL 50 mg 24 00:00: [place] hr tablet 00 [facility] metoprolol Yes 50mg Take 50 mg U nivers succinate 7-11 by mouth. ity o f XL 50 mg 24 00:00: [place] hr tablet 00 [facility] metoprolol Yes 50mg Take 50 mg U nivers succinate 7-11 by mouth. ity o f XL 50 mg 24 00:00: [place] hr tablet 00 [facility] metoprolol Yes 50mg Q.5D Take 50 mg M ethodi succinate 04-[address] XL 00:00: (two) [facility]osp[facility] (TOPROL-XL) 00 times a l 50 mg 24 hr day. tablet metoprolol No 50mg Take 50 mg [facility] succinate 04-14 by mouth. ity of XL 50 mg 24 00:00: 00:00 [place] hr tablet 00 :00 [facility] metoprolol 2020- No 50mg Take 50 mg [facility] succinate 04-14 by mouth. ity of XL 50 mg 24 00:00: 00:00 [place] hr tablet 00 :00 [facility] amLODIPine Yes 2.5 mg = 1 M emoria 2.5 mg oral 6-03 tab, PO, l tablet 20:09: Daily, # Jesus Alberto 00 30 tab, 0 Refill(s), Pharmacy: [facility] [address] [place] [address] Yes Daily, 0 Memori a Vitamin C 6-03 Refill(s) l 18:55: [place] 00 selenium Yes 200 Memoria 200 mcg 6-03 microgram l oral tablet 18:55: = 1 tab, [place] 00 PO, Daily, # 30 tab, 0 Refill(s) amLODIPine No 2.5 mg = 1 M emoria 2.5 mg oral 6-03 tab, PO, l tablet 18:55: Daily, # [place] 00 90 tab, 3 Refill(s) Vitamin A Yes See Memoria 6-03 Instructio l 18:55: ns, Jesus Alberto 00 Vitamin A 2400 mcg qd, 0 Refill(s) Vitamin C Yes 500 mg = 1 Me moria 500 mg oral 6-03 tab, PO, l tablet 18:55: Daily, # Jesus Alberto 00 30 tab, 0 Refill(s) cefdinir 2017-10 No 300 mg = 1 Mem oria 300 MG Oral 2-28 cap, PO, l Capsule 15:21: BID, X 10 Jolene nn 00 day, # 20 cap, 0 Refill(s), Pharmacy: [facility] 482 Ipratropium 2017-10 No 2 spray, Me moria Cas[place] 2-28 NASAL, l 0.042 15:21: TID, PRN [place] MG/ACTUAT 00 for cold Metered symptoms, Dose Nasal [place] both [Atrovent] nostrils, X 30 day, # 1 ea, 0 Refill(s), Pharmacy: [facility] 482 donepezil 5 Yes 5 mg = 1 Me moria mg oral 5-07 tab, PO, l tablet 15:28: Daily, # Jesus Alberto 00 30 tab, 1 Refill(s) Hydroxyzine Yes 25 mg = 1 M emoria Hydrochlori 5-07 tab, PO, l de 25 MG 15:17: QID, PRN Jolene nn Oral Tablet 00 Itching, # 40 tab, 0 Refill(s) Triamcinolo Yes 1 appl, Mem oria ne 5-07 TOP, BID, l Acetonide 1 15:17: Apply to He r[place] MG/ML 00 affected Topical area(s), # Cream 454 gm, 0 Refill(s) Nystatin Yes 1 appl, Memori a 100 UNT/MG 507 TOP, BID, l Topical 15:17: # 15 gm, 0 Herm tao Powder 00 Refill(s) [Nystop] Diphenhydra Yes See Memori a mine / 5-07 Instructio l Hydrocortis 15:17: ns, apply H ermann twice Nystatin daily, 0 Refill(s) { No See Memoria (Methylpred 4-12 Instructio l nisolone 4 16:20: ns, PO, Herm tao MG Oral 00 Take by Tablet mouth as [Medrol]) } directed Pack on label., [Medrol # 1 Pack, Dosepak] 0 Refill(s), Pharmacy: [facility] 482 Triamcinolo No 1 appl, Mem oria ne 4-12 TOP, BID, l Acetonide 1 16:20: Apply to He rmann MG/ML 00 affected Topical area(s), X Cream 10 day, # 454 gm, 0 Refill(s), Pharmacy: [facility] 482 Hydroxyzine No 25 mg = 1 M emoria Hydrochlori 4-12 tab, PO, l de 25 MG 16:20: QID, PRN Jolene nn Oral Tablet 00 Itching, may cause drowsiness , X 10 day, # 40 tab, 0 Refill(s), Pharmacy: [facility] 482 Diphenhydra No 25 mg, prn Memoria mine 4-12 itching, 0 l 16:00: Refill(s) Jesus Alberto 00 triamcinolo No 40 mg, Alin charles ne 4-05 Route: IM, l ACETONIDE 13:47: ONCE, Jesus Alberto 40 mg/mL 00 Dosing injectable Weight 80, suspension kg, Start date: 01/07/18 8:47:00 CDT, Stop date: 01/07/18 8:47:00 CDT zolpidem 2012- Yes once every Met [facility]odi (SANDRA) 5 1- evening st MG tablet 00:00: prn Hospita 00 insomnia l No known No [facility] medications ity [facility] No known No [facility] medications ity [facility] No known No [facility] medications ity [facility] No known No [facility] medications ity [facility] No known No [facility] medications ity [facility] No known [facility] Immun[facility] Ordered Filled Immunization Date Status Comments [facility] e Immunization Name Name SARS-COV-2 COVID-19 2020-11-14 Completed Unive rsity of PFIZER VACCINE 00:00:00 [facility] SARS-COV-2 COVID-19 2020-11-14 Completed Unive rsity of PFIZER VACCINE 00:00:00 [facility] SARS-COV-2 COVID-19 2020-11-14 Completed Unive rsity of PFIZER VACCINE 00:00:00 [facility] SARS-COV-2 COVID-19 2020-11-14 Completed Unive rsity of PFIZER VACCINE 00:00:00 [facility] SARS-COV-2 COVID-19 2020-11-14 Completed Unive rsity of PFIZER VACCINE 00:00:00 [facility] SARS-COV-2 COVID-19 2020-11-14 Completed Unive rsity of PFIZER VACCINE 00:00:00 [facility] SARS-COV-2 COVID-19 2020-11-14 Completed Unive rsity of PFIZER VACCINE 00:00:00 [facility] SARS-COV-2 COVID-19 2020-11-14 Completed Unive rsity of PFIZER VACCINE 00:00:00 [facility] SARS-COV-2 COVID-19 2020-11-14 Completed Unive rsity of PFIZER VACCINE 00:00:00 [facility] SARS-COV-2 COVID-19 2020-11-14 Completed Unive rsity of PFIZER VACCINE 00:00:00 [facility] SARS-COV-2 COVID-19 2020-11-14 Completed Unive rsity of PFIZER VACCINE 00:00:00 [facility] SARS-COV-2 COVID-19 2020-11-14 Completed Unive rsity of PFIZER VACCINE 00:00:00 [facility] SARS-COV-2 COVID-19 2020-11-14 Completed Unive rsity of PFIZER VACCINE 00:00:00 [facility] SARS-COV-2 COVID-19 2020-11-14 Completed Unive rsity of PFIZER VACCINE 00:00:00 [facility] SARS-COV-2 COVID-19 2020-11-14 Completed Unive rsity of PFIZER VACCINE 00:00:00 [facility] SARS-COV-2 COVID-19 2020-11-14 Completed Unive rsity of PFIZER VACCINE 00:00:00 [facility] SARS-COV-2 COVID-19 2020-11-14 Completed Unive rsity of PFIZER VACCINE 00:00:00 [facility] SARS-COV-2 COVID-19 2020-11-14 Completed Unive rsity of PFIZER VACCINE 00:00:00 [facility] SARS-COV-2 COVID-19 2020-11-14 Completed Unive rsity of PFIZER VACCINE 00:00:00 [facility] SARS-COV-2 COVID-19 2020-11-14 Completed Unive rsity of PFIZER VACCINE 00:00:00 [facility] SARS-COV-2 COVID-19 2020-11-14 Completed Unive rsity of PFIZER VACCINE 00:00:00 [facility] SARS-COV-2 COVID-19 2020-11-14 Completed Unive rsity of PFIZER VACCINE 00:00:00 [facility] SARS-COV-2 COVID-19 2020-11-14 Completed Unive rsity of PFIZER VACCINE 00:00:00 [facility] SARS-COV-2 COVID-19 2020-11-14 Completed Unive rsity of PFIZER VACCINE 00:00:00 [facility] SARS-COV-2 COVID-19 2020-11-14 Completed Unive rsity of PFIZER VACCINE 00:00:00 [facility] SARS-COV-2 COVID-19 2020-11-14 Completed Unive rsity of PFIZER VACCINE 00:00:00 [facility] SARS-COV-2 COVID-19 2020-11-14 Completed Unive rsity of PFIZER VACCINE 00:00:00 [facility] SARS-COV-2 COVID-19 2020-11-14 Completed Unive rsity of PFIZER VACCINE 00:00:00 [facility] SARS-COV-2 COVID-19 2020-11-14 Completed Unive rsity of PFIZER VACCINE 00:00:00 [facility] SARS-COV-2 COVID-19 2020-11-14 Completed Unive rsity of PFIZER VACCINE 00:00:00 [facility] SARS-COV-2 COVID-19 2020-11-14 Completed Unive rsity of PFIZER VACCINE 00:00:00 [facility] SARS-COV-2 COVID-19 2020-11-14 Completed Unive rsity of PFIZER VACCINE 00:00:00 [facility] SARS-COV-2 COVID-19 2020-11-14 Completed Unive rsity of PFIZER VACCINE 00:00:00 [facility] SARS-COV-2 COVID-19 2020-11-14 Completed Unive rsity of PFIZER VACCINE 00:00:00 [facility] SARS-COV-2 COVID-19 2020-11-14 Completed Unive rsity of PFIZER VACCINE 00:00:00 [facility] SARS-COV-2 COVID-19 2020-11-14 Completed Unive rsity of PFIZER VACCINE 00:00:00 [facility] SARS-COV-2 COVID-19 2020-10-24 Completed Unive rsity of PFIZER VACCINE 00:00:00 [facility] SARS-COV-2 COVID-19 2020-10-24 Completed Unive rsity of PFIZER VACCINE 00:00:00 [facility] SARS-COV-2 COVID-19 2020-10-24 Completed Unive rsity of PFIZER VACCINE 00:00:00 [facility] SARS-COV-2 COVID-19 2020-10-24 Completed Unive rsity of PFIZER VACCINE 00:00:00 [facility] SARS-COV-2 COVID-19 2020-10-24 Completed Unive rsity of PFIZER VACCINE 00:00:00 [facility] SARS-COV-2 COVID-19 2020-10-24 Completed Unive rsity of PFIZER VACCINE 00:00:00 [facility] SARS-COV-2 COVID-19 2020-10-24 Completed Unive rsity of PFIZER VACCINE 00:00:00 [facility] SARS-COV-2 COVID-19 2020-10-24 Completed Unive rsity of PFIZER VACCINE 00:00:00 [facility] SARS-COV-2 COVID-19 2020-10-24 Completed Unive rsity of PFIZER VACCINE 00:00:00 [facility] SARS-COV-2 COVID-19 2020-10-24 Completed Unive rsity of PFIZER VACCINE 00:00:00 [facility] SARS-COV-2 COVID-19 2020-10-24 Completed Unive rsity of PFIZER VACCINE 00:00:00 [facility] SARS-COV-2 COVID-19 2020-10-24 Completed Unive rsity of PFIZER VACCINE 00:00:00 [facility] SARS-COV-2 COVID-19 2020-10-24 Completed Unive rsity of PFIZER VACCINE 00:00:00 [facility] SARS-COV-2 COVID-19 2020-10-24 Completed Unive rsity of PFIZER VACCINE 00:00:00 [place] [facility] SARS-COV-2 COVID-19 2020-10-24 Completed Unive rsity of PFIZER VACCINE 00:00:00 [facility] SARS-COV-2 COVID-19 2020-10-24 Completed Unive rsity of PFIZER VACCINE 00:00:00 [facility] SARS-COV-2 COVID-19 2020-10-24 Completed Unive rsity of PFIZER VACCINE 00:00:00 [facility] SARS-COV-2 COVID-19 2020-10-24 Completed Unive rsity of PFIZER VACCINE 00:00:00 [facility] SARS-COV-2 COVID-19 2020-10-24 Completed Unive rsity of PFIZER VACCINE 00:00:00 [facility] SARS-COV-2 COVID-19 2020-10-24 Completed Unive rsity of PFIZER VACCINE 00:00:00 [facility] SARS-COV-2 COVID-19 2020-10-24 Completed Unive rsity of PFIZER VACCINE 00:00:00 [facility] SARS-COV-2 COVID-19 2020-10-24 Completed Unive rsity of PFIZER VACCINE 00:00:00 [facility] SARS-COV-2 COVID-19 2020-10-24 Completed Unive rsity of PFIZER VACCINE 00:00:00 [facility] SARS-COV-2 COVID-19 2020-10-24 Completed Unive rsity of PFIZER VACCINE 00:00:00 [facility] SARS-COV-2 COVID-19 2020-10-24 Completed Unive rsity of PFIZER VACCINE 00:00:00 [facility] SARS-COV-2 COVID-19 2020-10-24 Completed Unive rsity of PFIZER VACCINE 00:00:00 [facility] SARS-COV-2 COVID-19 2020-10-24 Completed Unive rsity of PFIZER VACCINE 00:00:00 [facility] SARS-COV-2 COVID-19 2020-10-24 Completed Unive rsity of PFIZER VACCINE 00:00:00 [facility] SARS-COV-2 COVID-19 2020-10-24 Completed Unive rsity of PFIZER VACCINE 00:00:00 [facility] SARS-COV-2 COVID-19 2020-10-24 Completed Unive rsity of PFIZER VACCINE 00:00:00 [facility] SARS-COV-2 COVID-19 2020-10-24 Completed Unive rsity of PFIZER VACCINE 00:00:00 [facility] SARS-COV-2 COVID-19 2020-10-24 Completed Unive rsity of PFIZER VACCINE 00:00:00 [facility] SARS-COV-2 COVID-19 2020-10-24 Completed Unive rsity of PFIZER VACCINE 00:00:00 [facility] SARS-COV-2 COVID-19 2020-10-24 Completed Unive rsity of PFIZER VACCINE 00:00:00 [facility] SARS-COV-2 COVID-19 2020-10-24 Completed Unive rsity of PFIZER VACCINE 00:00:00 [facility] SARS-COV-2 COVID-19 2020-10-24 Completed Unive rsity of PFIZER VACCINE 00:00:00 [facility] Influenza High Dose 2020-08-01 Completed Unive [facility] of [place] 00:00:00 [facility] Influenza High Dose 2020-08-01 Completed Unive [facility] of [place] 00:00:00 [facility] Influenza High Dose 2020-08-01 Completed Unive [facility] of [place] 00:00:00 [facility] Influenza High Dose 2020-08-01 Completed Unive [facility] 00:00:00 [facility] Influenza High Dose 2020-08-01 Completed [facility] 00:00:00 [facility] Influenza High Dose 2020-08-01 Completed [facility] 00:00:00 [facility] Influenza High Dose 2020-08-01 Completed [facility] of [facility] 00:00:00 [facility] Influenza High Dose 2020-08-01 Completed [facility] of [facility] 00:00:00 [facility] Influenza High Dose 2020-08-01 Completed [facility] of [facility] 00:00:00 [facility] Influenza High Dose 2020-08-01 Completed [facility] of [facility] 00:00:00 [facility] Influenza High Dose 2020-08-01 Completed [facility] of [facility] 00:00:00 [facility] Influenza High Dose 2020-08-01 Completed [facility] of [facility] 00:00:00 [facility] Influenza High Dose 2020-08-01 Completed [facility] 00:00:00 [facility] Influenza High Dose 2020-08-01 Completed [facility]ive [facility] of [facility] 00:00:00 [facility] Influenza High Dose 2020-08-01 Completed [facility] of [facility] 00:00:00 [facility] Influenza High Dose 2020-08-01 Completed [facility] of [facility] 00:00:00 [facility] Influenza High Dose 2020-08-01 Completed [facility] of [facility] 00:00:00 [facility] Influenza High Dose 2020-08-01 Completed [facility] of [facility] 00:00:00 [facility] Influenza High Dose 2020-08-01 Completed [facility] 00:00:00 [facility] Influenza High Dose 2020-08-01 Completed [facility] 00:00:00 [facility] Influenza High Dose 2020-08-01 Completed [facility] 00:00:00 [facility] Influenza High Dose 2020-08-01 Completed [facility] 00:00:00 [facility] Influenza High Dose 2020-08-01 Completed [facility] of [facility] 00:00:00 [facility] Influenza High Dose 2020-08-01 Completed [facility] of [facility] 00:00:00 [facility] Influenza High Dose 2020-08-01 Completed [facility] of [facility] 00:00:00 [facility] Influenza High Dose 2020-08-01 Completed [facility] 00:00:00 [facility] Influenza High Dose 2020-08-01 Completed [facility] 00:00:00 [facility] Influenza High Dose 2020-08-01 Completed [facility] 00:00:00 [facility] Influenza High Dose 2020-08-01 Completed [facility] 00:00:00 [facility] Influenza High Dose 2020-08-01 Completed [facility] 00:00:00 [facility] Influenza High Dose 2020-08-01 Completed [facility] 00:00:00 [facility] Influenza High Dose 2020-08-01 Completed [facility] 00:00:00 [facility] Influenza High Dose 2020-08-01 Completed [facility] 00:00:00 [facility] Influenza High Dose 2020-08-01 Completed [facility] 00:00:00 [facility] Influenza High Dose 2020-08-01 Completed [facility] of [facility] 00:00:00 [facility] Influenza High Dose 2020-08-01 Completed [facility] of [facility] 00:00:00 [facility] Influenza High Dose 2020-08-01 Completed [facility] 00:00:00 [facility] Influenza High Dose 2020-08-01 Completed [facility] 00:00:00 [facility] Vital Signs Vital Name Observation Time Observation Value Comments Source Systolic blood 2021-02-12 18:19:00 139 mm[Hg] Univer sity of pressure [facility] Diastolic blood 2021-02-12 18:19:00 82 mm[Hg] Unive rsity of pressure [facility] Heart rate 2021-02-12 18:16:00 65 /min Universi ty of [facility] Body height 2021-02-12 18:16:00 167.6 cm Universi ty of [facility] Body weight 2021-02-12 18:16:00 71.668 kg Universi ty of [facility] BMI 2021-02-12 18:16:00 25.50 kg/m2 Universi ty of [facility] Oxygen saturation in 2021-02-12 18:16:00 97 /min University of Arterial blood by [facility] Pulse oximetry Branch Systolic blood 2021-01-31 15:22:00 118 mm[Hg] Univer sity of pressure [facility] Diastolic blood 2021-01-31 15:22:00 69 mm[Hg] Unive rsity of pressure [facility] Heart rate 2021-01-31 15:22:00 72 /min Universi ty of [facility] Body temperature 2021-01-31 15:22:00 36.72 Sophie Univ ersity of [facility] Body height 2021-01-31 15:22:00 167.6 cm [facility] Body weight 2021-01-31 15:22:00 73.029 kg [facility] BMI 2021-01-31 15:22:00 25.99 kg/m2 Universi ty of [facility] Systolic blood 2021-01-28 15:11:00 134 mm[Hg] Univer sity of pressure [facility] Diastolic blood 2021-01-28 15:11:00 74 mm[Hg] Unive rsity of pressure [facility] Heart rate 2021-01-28 15:11:00 85 /min [facility] Body temperature 2021-01-28 15:11:00 36.5 Sophie Univ [facility] Respiratory rate 2021-01-28 15:11:00 16 /min Univ [facility] Body weight 2021-01-28 15:11:00 70.308 kg [facility] BMI 2021-01-28 15:11:00 25.02 kg/m2 [facility] Oxygen saturation in 2021-01-28 15:11:00 96 /min University of Arterial blood by [facility] Pulse oximetry Branch Systolic blood 2020-12-20 17:00:00 180 mm[Hg] Univer sity of pressure [facility] Diastolic blood 2020-12-20 17:00:00 78 mm[Hg] Unive rsity of pressure [facility] Heart rate 2020-12-20 17:00:00 75 /min [facility] Respiratory rate 2020-12-20 17:00:00 19 /min Univ ers[facility] Oxygen saturation in 2020-12-20 17:00:00 96 /min University of Arterial blood by [facility] Pulse oximetry Branch Body temperature 2020-12-20 14:41:00 37 Sophie [facility] Body weight 2020-12-20 14:41:00 68.04 kg [facility] BMI 2020-12-20 14:41:00 24.21 kg/m2 [facility] Systolic blood 2020-12-20 13:23:00 197 mm[Hg] Univer sity of pressure [facility] Diastolic blood 2020-12-20 13:23:00 110 mm[Hg] Unive rsity of pressure [facility] Heart rate 2020-12-20 13:23:00 94 /min [facility] Body temperature 2020-12-20 13:23:00 36.22 Sophie [facility] Body height 2020-12-20 13:23:00 167.6 cm [facility] Body weight 2020-12-20 13:23:00 70.943 kg [facility] BMI 2020-12-20 13:23:00 25.24 kg/m2 [facility] Oxygen saturation in 2020-12-20 13:23:00 96 /min University of Arterial blood by [facility] Pulse oximetry Branch Systolic blood 2019-10-31 13:41:00 136 mm[Hg] Univer sity of pressure [facility] Diastolic blood 2019-10-31 13:41:00 79 mm[Hg] Unive rsity of pressure [facility] Heart rate 2019-10-31 13:41:00 87 /min [facility] Body temperature 2019-10-31 13:41:00 36.89 Sophie Univ [facility] Body weight 2019-10-31 13:41:00 71.215 kg [facility] BMI 2019-10-31 13:41:00 25.34 kg/m2 [facility] Oxygen saturation in 2019-10-31 13:41:00 98 /min University of Arterial blood by [facility] Pulse oximetry Branch Systolic blood 2019-10-31 13:41:00 136 mm[Hg] Univer sity of pressure [facility] Diastolic blood 2019-10-31 13:41:00 79 mm[Hg] Unive rsity of pressure [facility] Heart rate 2019-10-31 13:41:00 87 /min [facility] Body temperature 2019-10-31 13:41:00 36.89 Sophie [facility] Body weight 2019-10-31 13:41:00 71.215 kg [facility] BMI 2019-10-31 13:41:00 25.34 kg/m2 [facility] Oxygen saturation in 2019-10-31 13:41:00 98 /min University of Arterial blood by [facility] Pulse oximetry Branch Systolic blood 2019-06-20 13:51:00 150 mm[Hg] Univer sity of pressure [facility] Diastolic blood 2019-06-20 13:51:00 75 mm[Hg] Unive rsity of pressure [facility] Heart rate 2019-06-20 13:51:00 63 /min Universi ty of [facility] Respiratory rate 2019-06-20 13:51:00 20 /min Univ ers[facility] Body height 2019-06-20 13:51:00 167.6 cm [facility] Body weight 2019-06-20 13:51:00 72.757 kg Universi [facility] BMI 2019-06-20 13:51:00 25.89 kg/m2 [facility] Oxygen saturation in 2019-06-20 13:51:00 98 /min [facility] Arterial blood by [facility] Pulse oximetry Branch Systolic blood 2019-04-29 13:57:00 131 mm[Hg] Univer sity of pressure [facility] Diastolic blood 2019-04-29 13:57:00 70 mm[Hg] Unive rsity of [facility] Heart rate 2019-04-29 13:57:00 75 /min [facility] Body temperature 2019-04-29 13:57:00 36.61 [facility] height 2019-04-29 13:57:00 167.6 cm [facility] Body weight 2019-04-29 13:57:00 74.844 kg [facility] BMI 2019-04-29 13:57:00 26.63 kg/m2 [facility] Height 2019-05-02 16:04:00 165.1 cm [facility] Weight 2019-05-02 16:04:00 [facility] [place] BMI Calculated 2019-05-02 16:04:00 [facility] [place] Systolic (mm Hg) 2019-05-02 16:04:00 [facility] [place] Diastolic (mm Hg) 2019-05-02 16:04:00 [facility] [place] Temperature Oral (F) 2019-05-02 16:04:00 97.8 F [facility] Heart Rate 2019-05-02 16:04:00 [facility] Weight 2019-03-08 19:14:00 [facility] Temperature Oral (F) 2019-03-08 19:14:00 98.5 F [facility] Systolic (mm Hg) 2019-03-08 19:14:00 Alin [facility] Diastolic (mm Hg) 2019-03-08 19:14:00 Mem [facility] Heart Rate 2019-03-08 19:14:00 [facility] Respitory Rate 2019-03-08 19:14:00 [facility] Heart Rate 2019-03-07 18:43:00 [facility] Temperature Oral (F) 2019-03-07 18:43:00 97.6 F [facility] Height 2019-03-07 18:43:00 165.1 cm [facility] BMI Calculated 2019-03-07 18:43:00 [facility] Weight 2019-03-07 18:43:00 [facility] Systolic (mm Hg) 2019-03-07 18:43:00 [facility] [place] Diastolic (mm Hg) 2019-03-07 18:43:00 Mem [facility] Height 2018-10-13 16:23:00 165.1 cm [facility] Temperature Oral (F) 2018-10-13 16:23:00 97.4 F [facility] Heart Rate 2018-10-13 16:23:00 [facility] Systolic (mm Hg) 2018-10-13 16:23:00 [facility] [place] Diastolic (mm Hg) 2018-10-13 16:23:00 Mem [facility] BMI Calculated 2018-10-13 16:23:00 [facility] [place] Weight 2018-10-13 16:23:00 [facility] [place] BMI Calculated 2018-10-01 14:42:00 [facility] [place] Height 2018-10-01 14:42:00 165.1 cm [facility] Weight 2018-10-01 14:42:00 [facility] Systolic (mm Hg) 2018-10-01 14:42:00 [facility] [place] Diastolic (mm Hg) 2018-10-01 14:42:00 Mem [facility] Temperature Oral (F) 2018-10-01 14:42:00 97.7 F [facility] Heart Rate 2018-10-01 14:42:00 [facility] Height 2018-06-14 15:45:00 165.1 cm [facility] Weight 2018-06-14 15:45:00 [facility] BMI Calculated 2018-06-14 15:45:00 [facility] [place] Temperature Oral (F) 2018-06-14 15:45:00 98.1 F [facility] Heart Rate 2018-06-14 15:45:00 [facility] [place] Systolic (mm Hg) 2018-06-14 15:45:00 Alin [facility] Diastolic (mm Hg) 2018-06-14 15:45:00 [facility] [place] Temperature Oral (F) 2018-05-19 19:39:00 97.7 F [facility] Heart Rate 2018-05-19 19:39:00 [facility] BMI Calculated 2018-05-19 19:39:00 [facility] [place] Weight 2018-05-19 19:39:00 [facility] Height 2018-05-19 19:39:00 165.1 cm [facility] Systolic (mm Hg) 2018-05-19 19:39:00 [facility] [place] Diastolic (mm Hg) 2018-05-19 19:39:00 Mem [facility] BMI Calculated 2018-02-08 15:02:00 [facility] Height 2018-02-08 15:02:00 165.1 cm [facility] Weight 2018-02-08 15:02:00 [facility] Systolic (mm Hg) 2018-02-08 15:02:00 [facility] [place] Diastolic (mm Hg) 2018-02-08 15:02:00 Mem [facility] Temperature Oral (F) 2018-02-08 15:02:00 97.6 F [facility] Heart Rate 2018-02-08 15:02:00 [facility] Weight 2018-01-14 15:47:00 [facility] BMI Calculated 2018-01-14 15:47:00 [facility] [place] Height 2018-01-14 15:47:00 167.6 cm [facility] Heart Rate 2018-01-14 15:47:00 [facility] Systolic (mm Hg) 2018-01-14 15:47:00 Alin [facility] Diastolic (mm Hg) 2018-01-14 15:47:00 [facility] [place] Temperature Oral (F) 2018-01-14 15:47:00 98.0 F [facility] BMI Calculated 2018-01-07 13:08:00 [facility] Weight 2018-01-07 13:08:00 [facility] Height 2018-01-07 13:08:00 167.64 cm [facility] Heart Rate 2018-01-07 13:08:00 [facility] Temperature Oral (F) 2018-01-07 13:08:00 97.6 F [facility] Systolic (mm Hg) 2018-01-07 13:08:00 [facility] [place] Diastolic (mm Hg) 2018-01-07 13:08:00 Mem [facility] BMI Calculated 2017-10-07 16:02:00 Min Rangel Weight 2017-10-07 16:02:00 Quincy Henryann Height 2017-10-07 16:02:00 167.64 cm [facility] Henryann Systolic (mm Hg) 2017-10-07 16:02:00 Alin Granda Diastolic (mm Hg) 2017-10-07 16:02:[address] [facility] gordy Granda Heart Rate 2017-10-07 16:02:00 [facility] Temperature Oral (F) 2017-10-07 16:02:00 97.5 F [facility] Procedures Procedure Date / Time Performing Clinician Source Performed HOME HEALTH - OTHER 2021-03-26 05:01:00 Doctor Janes [facility] Name [facility] [place] AUDIOGRAM 2021-03-11 05:01:00 Doctor Janes, [facility] Name [facility] [place] CT HEAD WO CONTRAST 2021-02-01 20:45:[address] [facility] ASSIGNMENT OF BENEFITS 2021-02-01 20:17:59 Doctor Janes, [facility] Name [facility] [place] EKG-12 LEAD 2021-01-31 16:04:39 Wyatt Moraes [facility] AUTHORIZATION FOR RELEASE 2021-01-31 05:01:00 Doctor Janes, [facility] OF PHI [place] [facility] [place] HOME HEALTH - OTHER 2021-01-29 05:01:00 Doctor [facility]rero [facility] [place] [place] XR SACRUM AND COCCYX 2021-01-28 16:14:54 Yadira Sanderson [facility] XR FEMUR 2 VW LEFT 2021-01-28 16:14:54 Yadira Sanderson [facility] XR HIPS 3 VW LEFT 2021-01-28 16:14:54 Yadira Sanderson [facility] CONSENT/REFUSAL FOR 2021-01-28 15:02:23 Doctor Marrero [facility] DIAGNOSIS AND TREATMENT [place] [place] HOME HEALTH - OTHER 2021-01-24 05:01:00 Doctor Marrero [facility] HOME HEALTH 485 2021-01-17 05:01:00 Doctor Janes [facility] CT CERVICAL SPINE WO 2020-12-20 16:09:18 Paul Thomas [facility] CONTRAST Medical Branch NOTICE OF PRIVACY 2020-12-20 14:25:39 Doctor Janes [facility] PRACTICES [facility] [place] CONSENT/REFUSAL FOR 2020-12-20 14:15:39 Doctor Janes [facility] MED[facility] CORRESPONDENCE 2020-08-01 05:01:00 Doctor Janes, [facility] CT LOW DOSE LUNG NODULE 2019-12-06 14:20:[address] [facility] XR CHEST 2 VW 2019-10-31 14:43:33 [facility] o f [facility] POTASSIUM SERUM 2019-06-17 18:12:00 Wyatt Moraes [facility] MAGNESIUM 2019-06-17 18:12:00 Wyatt Moraes [facility] EXTERNAL PROVIDER RECORDS 2019-06-13 05:01:00 Doctor Janes, [facility] [place] [facility] EXTERNAL PROVIDER RECORDS 2019-05-26 05:01:00 Doctor Janes, [facility] [facility] STATEMENT OF PATIENT 2019-05-11 05:01:00 Doctor Janes, [facility] FINANCIAL RESPONSIBILITY [facility]3] US ABDOMEN COMPLETE 2019-04-28 15:03:[address] [facility] Mammogram 2014-12-21 05:00:00 [facility] Appendectomy [facility] Bunionectomy [facility] Cholecystectomy [facility] Lobectomy [facility] Tonsillectomy [facility] Plan of Care Planned Activity Planned Date Details Comments Source Future Scheduled 2022-06-04 COVID-19 VACCINE (#1) [facility] Test 07:21:08 [code = COVID-19 VACCINE (#1)] Future Scheduled 2022-06-04 65+ PNEUMOCOCCAL [facility] Test 07:21:08 VACCINE (1 - PCV) [code = 65+ PNEUMOCOCCAL VACCINE (1 - PCV)] Future Scheduled 2022-06-04 SHINGLES VACCINES (1 Met [facility] Test 07:21:08 of 2) [code = SHINGLES VACCINES (1 of 2)] Future Scheduled 2022-06-04 HEPATITIS B VACCINES Met [facility] Test 07:21:08 (1 of 3 - Risk 3-dose series) [code = HEPATITIS B VACCINES (1 of 3 - Risk 3-dose series)] Future Scheduled 2022-06-04 INFLUENZA VACCINE [facility] Test 07:21:08 [code = INFLUENZA VACCINE] Future Scheduled 2021-12-20 Depression screening Uni [facility] Test 00:00:00 (procedure) [code = Medical Branch [id number]] Future Scheduled 2000 Medicare Annual [facility] Test 00:00:00 Wellness Visit Medical [facility] (procedure) [code = 423776441401857] Future Scheduled 2000 Screening for [facility] Test 00:00:00 osteoporosis Medical Branch (procedure) [code = [id number]] Future Scheduled 2000 [facility]CCAL [facility]INES [facility]00 65+ (1 of 1 - PPSV23) Medica l Branch [code = PNEUMOCOCCAL VACCINES 65+ (1 of 1 - PPSV23)] Future Scheduled 1985 Zoster Recombinant Unive [facility] Test 00:00:00 Vaccine (SHINGRIX) (1 Medica l Branch of 2) [code = Zoster Recombinant Vaccine (SHINGRIX) (1 of 2)] Future Scheduled 1954 DTaP,Tdap,and Td Univers [facility] Test 00:00:00 Vaccines (1 - Tdap) Medical Branch [code = DTaP,Tdap,and Td Vaccines (1 - Tdap)] Encounters Start End Encounter Admission Attending Care Care Encounter Source Date/Time Date/Time Type Type Clinicians Facility Department ID 2021-08-04 Emergency [facility] [id number] Univers 15:13:30 ity [facility] 2021-08-04 Emergency [facility] [id number] Univers 06:50:35 ity [facility] 2021-10-13 2021-10-13 Letter ASHLYN Velazquez [id number] Univers 00:00:00 00:00:00 (Out) Deepti CEJA [id number] it y of HOSPITAL [id number] Farshad as [phone] [facility] 019 Branch 2021-10-11 2021-10-11 Laboratory Only, Ang Db Test [facility] 1.2.8 40.114 [id number] Univers 15:30:00 15:45:00 Only Guanakito Neville [facility] [id number] ity [facility] [id number] Farshad as STEFFANIE?BLEA [phone] [facility] MEDICAL OFFICE BUILDING 2021-10-11 2021-10-11 Outpatient R KELIN [facility] [id number] Univers 15:30:00 15:30:00 GUANAKITO ity o f [facility] 2021-10-11 2021-10-11 Letter Doctor ASHLYN [id number] Univers 00:00:00 00:00:00 (Out) Unassigned, BRENNA [id number] ity of [place] [facility] [id number] Farshad as [phone] [facility] 044 Branch 2021-04-30 2021-04-30 Outpatient R ALEISHA [facility] [id number] Univers 08:15:00 08:15:00 WONDIFUL ity o f [facility] 2021-03-26 2021-03-26 Orders Doctor ASHLYN [id number] Univers 00:00:00 00:00:00 Only Unassigned, BRENNA [id number] ity of [place] [facility] [id number] Farshad as [phone] [facility] 009 Branch 2021-03-11 2021-03-11 Ancillary Shantal Jeronimo [facility] 1.2.84 0.114 [id number] Univers 14:09:57 16:00:08 Visit Ashley Reyes [id number] ity of [facility] [id number] Farshad as BANK [phone] [facility] BLDG. 141 Branch 2021-03-11 2021-03-11 [facility] [id number] Univers 14:30:00 14:30:00 ASHLEY ity of [facility] 2021-03-11 2021-03-11 Orders Doctor ASHLYN [id number] [id number] Univers 00:00:00 00:00:00 Only Unassigned, BRENNA [id number] [place] [facility] [id number] Farsh[place] as [phone] [address] 2021-02-26 2021-02-26 Telephone Aleisha [facility] [id number] Univers 00:00:00 00:00:00 Wondiful [facility] [id number] ity of [place] [id number] Farshad as Professio [phone] [address] 2021-02-14 2021-02-14 Telephone Jose R [facility] 1.2.840.114 [id number] Univers 00:00:00 00:00:00 Donnell Early [id number] [place]y [id number] [phone] [address] 2021-02-13 2021-02-13 Case Aleisha [facility] 1.2.840.114 [id number] Univers 00:00:00 00:00:00 Management Wondiful [facility] [id number] ity of [place] [id number] Farshad as Professio [phone] [address] 2021-02-12 2021-02-12 Office Jose R [facility] 1.2.840.114 [id number] Univers 12:49:32 14:56:44 Visit Donnell Early [id number] it[id number] [phone] [address] 2021-02-12 2021-02-12 Outpatient R DONNELL ODELL [facility] [id number] Univers 13:00:00 13:00:00 DONNELL ODELL [facility] 2021-02-07 2021-02-07 [facility] 1.2.840.114 [id number] Univers 00:00:00 00:00:00 Wondiful A [facility] [id number] ity of [place] [id number] Farshad as Professio [phone] [address] Office [facility] 2021-02-01 2021-02-01 [facility] [id number] Univers 15:18:17 23:59:00 Encounter Wondiful A [place] [id number] it[id number] [phone] [facility] 801 Branch 2021-02-01 2021-02-01 [facility]patient [facility] [id number] Univers 00:00:00 00:00:00 WONDIFUL ity o f [facility] 2021-02-01 2021-02-01 Orders Doctor ASHLYN 1.2.840.114 [id number] Univers 00:00:00 00:00:00 Only Unassigned, BRENNA 350.1.13.10 ity of [facility] 4.2.7.2.686 Farshad as [phone] [facility] [address] 2021-01-31 2021-01-31 Office [facility] 1.2.840.114 [id number] Univers 09:57:36 11:30:57 Visit [facility]att [facility] 350.1.13.10 ity of [place] 4.2.7.2.686 Farshad as Professio [phone] [address] Office [facility] 2021-01-31 2021-01-31 [facility] Fam Pob I [facility] 1.2. 840.114 [id number] Univers 10:48:53 11:08:53 Visit [facility]att [facility] 350.1.13.1 0 ity of [place] 4.2.7.2.686 Farshad as Professio [phone] [address] Office [facility] 2021-01-31 2021-01-31 Outpatient R ALEISHA [facility] [id number] Univers 10:00:00 10:00:00 WONDIFUL ity o f [facility] 2021-01-31 2021-01-31 Orders Doctor ASHLYN 1.2.840.114 [id number] Univers 00:00:00 00:00:00 Only Unassigned, BRENNA 350.1.13.10 ity of [facility] 4.2.7.2.686 Farshad as [phone] [address] 2021-01-29 2021-01-29 Telephone [facility] 1.2.840.114 [id number] Univers 00:00:00 00:00:00 Wondiful A Health 350.1.13.10 ity of [place] 4.2.7.2.686 Farshad as Professio [phone] [address] One 2021-01-29 2021-01-29 Orders Doctor ASHLYN 1.2.840.114 [id number] Univers 00:00:00 00:00:00 Only Unassigned, BRENNA 350.1.13.10 ity of [facility] 4.2.7.2.686 Farshad as [phone] [facility] [address] [place] 2021-01-28 2021-01-28 Emergency [facility] 1.2.840.114 [id number] Univers 10:12:00 12:11:00 Folusho F [place] 350.1.13.10 ity of [place] 4.2.7.2.686 [place] [facility] [phone] [facility] [address] [place] 2021-01-28 2021-01-28 Telephone [facility] 1.2.840.114 [id number] Univers 00:00:00 00:00:00 Wondiful A Health 350.1.13.10 ity of [place] 4.2.7.2.686 Farsh[place] as Professio [phone] [address] Office [facility] 2021-01-28 2021-01-28 Orders Doctor ASHLYN 1.2.840.114 [id number] Univers 00:00:00 00:00:00 Only Unassigned, BRENNA 350.1.13.10 ity of [facility] 4.2.7.2.686 Farshad as [phone] [address] 2021-01-24 2021-01-24 Telephone [facility] 1.2.840.114 [id number] Univers 00:00:00 00:00:00 Wondiful A Health 350.1.13.10 ity of [place] 4.2.7.2.686 Farshad as Professio [phone] [address] One 2021-01-24 2021-01-24 Orders Doctor ASHLYN 1.2.840.114 [id number] Univers 00:00:00 00:00:00 Only Unassigned, BRENNA 350.1.13.10 ity of [facility] 4.2.7.2.686 Farshad as [phone] [address] 2021-01-18 2021-01-18 Telephone [facility] 1.2.840.114 [id number] Univers 00:00:00 00:00:00 Wondiful A Health 350.1.13.10 ity of [place] 4.2.7.2.686 Farshad as Professio [phone] [address] One 2021-01-17 2021-01-17 Orders Doctor ASHLYN 1.2.840.114 [id number] Univers 00:00:00 00:00:00 Only Unassigned, BRENNA 350.1.13.10 ity of [facility] 4.2.7.2.686 Farshad as [phone] [address] 2021-01-01 2021-01-01 Patient Levar [facility] 1.2.840.114 [id number] Univers 00:00:00 00:00:00 Outreach Stacy D [facility] 350.1.13.10 ity of [place] 4.2.7.2.686 Farshad as Professio [phone] [address] One 2020-12-20 2020-12-20 Emergency Singer [facility] 1.2.526.870 [id number] Univers 09:37:00 12:33:00 Paul Early 350.1.13.10 i ty of [place] 4.2.7.2.686 [place] [phone] [facility] [address] [place] 2020-12-20 2020-12-20 Office [facility] 1.2.840.114 [id number] Univers 08:02:08 09:34:42 Visit Wondiful A Health 350.1.13.10 ity of [place] 4.2.7.2.686 Farshad as Professio [phone] [address] One 2020-12-20 2020-12-20 Outpatient R A[facility] [id number] Univers 08:15:00 08:15:00 WONDIFUL ity o f [facility] 2020-12-20 2020-12-20 Orders Doctor ASHLYN 1.2.840.114 [id number] Univers 00:00:00 00:00:00 Only Unassigned, BRENNA 350.1.13.10 ity of [facility] 4.2.7.2.686 Farshad as [phone] [facility] [address] [place] 2020-11-14 2020-11-14 Outpatient [facility] [id number] Univers 12:40:00 12:40:00 DAVID ity [facility] 2020-10-24 2020-10-24 Outpatient [facility] [id number] Univers 13:10:00 13:10:00 DAVID ity [facility] 2020-10-18 2020-10-18 Outpatient R [facility] [id number] Univers 12:00:00 12:00:00 DAVID ity [facility] 2020-08-02 2020-08-02 Telephone [facility] 1.2.840.114 [id number] Univers 00:00:00 00:00:00 Wondiful A Health 350.1.13.10 ity of [place] 4.2.7.2.686 Farshad as Professio [phone] [address] One 2020-08-01 2020-08-01 Orders Doctor GOLDBERG 1.2.840.114 [id number] Univers 00:00:00 00:00:00 Only Unassigned, BRENNA 350.1.13.10 ity of [facility] 4.2.7.2.686 Farshad as [phone] [address] 2020-02-28 2020-03-01 Phone nullFlavo [facility] [id number] Memoria 12:50:34 04:59:59 Message r Internal 06 l Medicine Jesus Alberto Gasquet 2020-02-28 2020-02-29 Outpatient [facility] [id number] 07:50:34 23:59:59 2020-02-24 2020-02-26 Phone nullFlavo [facility] [id number] Memoria 20:00:03 04:59:59 Message r Internal 05 l Medicine [facility] 2020-02-24 2020-02-25 Outpatient [facility] [id number] 15:00:03 23:59:59 2019-12-21 2019-12-21 Telephone [facility] 1.2.467.394 [id number] 00:00:00 00:00:00 Shirejin [place] 350.1.13.10 [place] 4.2.7.2.[address] Professio [phone] [address] 2019-12-21 2019-12-21 [place] [facility] 1.2.284.121 [id number] [facility] 00:00:00 00:00:00 Shiwan [place] 350.1.13.10 i ty [place].2.7.2.686 [place] Profess[place] [phone] [address] 2019-12-07 2019-12-07 [place] [facility] 1.2.886.317 [id number] Univers 00:00:00 00:00:00 Shiwan [place] 350.1.13.10 i ty [place].2.7.2.686 [place] Professio [phone] [address] 2019-12-07 2019-12-07 [place] [facility] 1.2.844.675 [id number] 00:00:00 00:00:00 Shiwan [place] 350.1.13.10 [place] 4.2.7.2.[phone] 2019-12-06 2019-12-06 Outpatient R JIMMY HARRY [facility] [id number] Univers 08:07:08 23:59:00 JIMMY HARRY i of [facility] 2019-12-06 2019-12-06 [facility] 1.2.840.114 [id number] Univers 08:07:00 23:59:00 Encounter Jimmy [place] 350.1.13.10 ity of [place] 4.2.7.2.686 [place] [phone] [facility] [address] [place] 2019-12-06 2019-12-06 [facility] 1.2.840.114 [id number] 08:07:00 23:59:00 Encounter Jimmy [place] 350.1.13.10 [place] 4.2.7.2.686 [place] [phone] 2019-10-31 2019-10-31 [facility] 1.2.840.114 [id number] Univers 08:22:00 23:59:00 Encounter Justine [place] 350.1.13.10 ity of [place] 4.2.7.2.686 [facility] [place] [phone] [facility] [address] [place] 2019-10-31 2019-10-31 [facility] 1.2.840.114 [id number] 08:22:00 23:59:00 Encounter Justine [place] 350.1.13.10 [place] 4.2.7.2.686 [place] [phone] 2019-10-31 2019-10-31 Office [facility] 1.2.840.114 [id number] Univers 07:24:15 08:06:13 Visit Justine Health 350.1.13.10 it y of [place] 4.2.7.2.686 Farshad as Professio [phone] Va dical [address] Office Building One 2019-10-31 2019-10-31 Office [facility] 1.2.840.114 [id number] 07:24:15 08:06:13 Visit Justine Health 350.1.13.10 [place] 4.2.7.2.686 Professio [phone] [address] One 2019-06-22 2019-06-22 Telephone Aleisha [facility] 1.2.840.114 [id number] Univers 00:00:00 00:00:00 Wondiful A Health 350.1.13.10 ity of [place] 4.2.7.2.686 Farshad as Professio [phone] [address] One 2019-06-20 2019-06-20 Office Harry, [facility] 1.2.840.114 [id number] Univers 07:53:24 09:18:29 Visit Jimmy Nneka 350.1.13.10 i ty of [place].2.7.2.[place] Profess[place] [phone] [facility] 085 [facility] 2019-06-17 2019-06-17 [facility], Adc Fam Pob I [facility] 1.2. 840.114 [id number] Univers 13:08:03 14:34:38 Visit [facility] 350.1.13.1 0 ity of [place] 4.2.7.2.686 Farshad as Professio [phone] [address] One 2019-06-13 2019-06-13 Orders Doctor ASHLYN 1.2.840.114 [id number] Univers 00:00:00 00:00:00 Only Unassigned, BRENNA 350.1.13.10 ity of [facility] [facility] 4.2.7.2.686 Farshad as [phone] [address] 2019-05-26 2019-05-26 Orders Doctor ASHLYN 1.2.840.114 [id number] Univers 00:00:00 00:00:00 Only Unassigned, BRENNA 350.1.13.10 ity of [facility] [facility] 4.2.7.2.686 Farshad as [phone] [address] 2019-05-11 2019-05-11 Orders Doctor ASHLYN 1.2.840.114 [id number] Univers 00:00:00 00:00:00 Only Unassigned, BRENNA 350.1.13.10 ity of [facility] [facility] 4.2.7.2.686 Farshad as [phone] [address] 2019-05-02 2019-05-03 [place] [id number] Memoria 16:00:00 04:59:59 r Internal 29 l Aung Granda Reeder 2019-05-02 2019-05-02 Outpatient Alexandria MG MG [id number] 11:00:00 23:59:59 Kimrefugio Eduardo 2019-05-02 2019-05-02 Outpatient MHIE MHIE [id number] Memoria 11:00:00 11:00:00 29 catherine Jesus Alberto 2019-04-29 2019-04-29 Office [facility] 1.2.840.114 [id number] [facility] 08:33:13 09:28:40 Visit Wondiful A [facility] 350.1.13.10 ity of [place] 4.2.7.2.686 Farshad as [facility] [phone] Va dical nal [address] [place] Office Building One 2019-04-28 2019-04-28 [facility] 1.2.934.564 [id number] [facility] 09:31:45 23:59:00 Encounter Wondiful A [place] 350.1.13.10 ity of [place] 4.2.7.2.686 [facility] [phone] [facility] [address] [place] 2019-04-19 2019-04-19 [place] [id number] Memoria 19:00:00 19:00:00 Pre-Reg r Pulmonology 31 catherine [place] Jesus Alberto 2019-04-19 2019-04-19 Outpatient IE IE [id number] Memoria 14:00:00 14:00:00 31 catherine Jesus Alberto 2019-04-19 2019-04-19 Outpatient Krissy MG MG [id number] 14:00:00 14:00:00 Juan Larry Renekashmiredwin 2019-03-08 2019-03-10 Phone nullFlavo MG Family [id number] Memoria 13:44:58 04:59:59 Message r Medicine 04 catherine Mcknight hilda 2019-03-08 2019-03-09 Outpatient MH[facility] MG [id number] 08:44:58 23:59:59 04 2019-03-08 2019-03-09 [place] [id number] Memoria 19:45:00 04:59:59 r Pulmonology 30 l Chuy Jesus Alberto 2019-03-08 2019-03-08 Outpatient Krissy, MG MG [id number] 14:45:00 23:59:59 Juan Shira Gottlieb 2019-03-08 2019-03-08 Outpatient MHIE MHIE [id number] Memoria 14:45:00 14:45:00 30 catherine Jesus Alberto 2019-03-07 2019-03-08 Outpatient nullFlavo MG Family 3 [id number] Memoria 19:30:00 04:59:59 r Medicine 28 catherine Reeder Juan Luis n 2019-03-07 2019-03-07 [facility] [id number] 14:30:00 23:59:59 Malorie Stevens 28 2019-03-07 2019-03-07 Outpatient MHIE IE [id number] Memoria 14:30:00 14:30:00 28 catherine Jesus Alberto 2019-02-16 2019-02-16 [place] [id number] Memoria 16:00:00 16:00:00 [facility]-Reg r [facility] 2019-02-16 2019-02-16 Outpatient MHIE IE [id number] Memoria 11:00:00 11:00:00 27 catherine Jesus Alberto 2019-02-16 2019-02-16 [id number] 11:00:00 11:00:00 Sree 2018-10-08 2018-11-08 Outpatient Amaury IBARRA, [facility] [id number] [place] 10:03:00 23:59:00 [facility] 2018-10-18 2018-10-18 [place] [id number] Memoria 16:00:00 16:00:00 Pre-Reg r Internal 20 [facility] Jesus Alberto Reeder 2018-10-18 2018-10-18 Outpatient MHIE IE [id number] Memoria 10:00:00 10:00:00 20 catherine Granda 2018-10-18 2018-10-18 [id number] 10:00:00 10:00:00 Sree 2018-10-13 2018-10-14 Outpatient nullFlavo [facility] [id number] Memoria 17:45:00 05:59:59 r Radiology 26 catherine stevens 2018-10-13 2018-10-14 Outpatient nullFlavo [facility] [id number] Memoria 17:30:00 05:59:59 r Radiology 25 l Varinder stevens 2018-10-13 2018-10-14 Outpatient nullFlavo [facility] [id number] Memoria 17:15:00 05:59:59 r Radiology 24 catherine stevens 2018-10-13 2018-10-14 Outpatient nullFlavo [facility] [id number] Memoria 17:00:00 05:59:59 r Radiology 23 catherine stevens 2018-10-13 2018-10-14 [place] [id number] Memoria 16:30:00 05:59:59 r Internal 22 catherine Aung Jesus Alberto Varinder 2018-10-13 2018-10-13 Outpatient VISIT, MG MG [id number] 11:45:00 23:59:59 NURSE STRB 26 XRAY 2018-10-13 2018-10-13 Outpatient VISIT, MHMG MG [id number] 11:30:00 23:59:59 NURSE STRB 25 XRAY 2018-10-13 2018-10-13 Outpatient VISIT, MHMG MG [id number] 11:15:00 23:59:59 NURSE STRB 24 XRAY 2018-10-13 2018-10-13 Outpatient VISIT, MHMG MG [id number] 11:00:00 23:59:59 NURSE STRB 23 XRAY 2018-10-13 2018-10-13 [id number] 10:30:00 23:59:59 , Sree 22 Nicolas 2018-10-13 2018-10-13 Outpatient MHIE MHIE [id number] Memoria 11:45:00 11:45:00 26 catherine Jesus Alberto 2018-10-13 2018-10-13 Outpatient MHIE MHIE [id number] Memoria 11:30:00 11:30:00 25 catherine Granda 2018-10-13 2018-10-13 Outpatient MHIE MHIE [id number] Memoria 11:15:00 11:15:00 24 catherine Jesus Alberto 2018-10-13 2018-10-13 Outpatient MHIE MHIE [id number] Memoria 11:00:00 11:00:00 23 catherine Jesus Alberto 2018-10-13 2018-10-13 Outpatient MHIE MHIE [id number] Memoria 10:30:00 10:30:00 22 catherine Jesus Alberto 2018-10-01 2018-10-02 Outpatient nullFlavo [facility] Family 3 [id number] Memoria 15:00:00 05:59:59 r Medicine 21 catherine stevens 2018-10-01 2018-10-01 [id number] 09:00:00 23:59:59 , Sree Orourke Nicolas 2018-10-01 2018-10-01 Outpatient MHIE MHIE [id number] Memoria 09:00:00 09:00:00 21 catherine Jesus Alberto 2018-06-14 2018-06-15 [place] [id number] Memoria 15:00:00 04:59:59 r Internal 17 catherine Reeder 2018-06-14 2018-06-14 [id number] 10:00:00 23:59:59 , Sree Alas Nicolas 2018-06-14 2018-06-14 Outpatient MHIE IE [id number] Memoria 10:00:00 10:00:00 17 catherine Jesus Alberto 2018-05-31 2018-06-02 Phone nullFlavo MG [id number] Memoria 17:51:00 04:59:59 Message r Internal 03 catherine Reeder 2018-05-31 2018-06-01 Outpatient [facility] MG [id number] 12:51:00 23:59:59 03 2018-05-19 2018-05-20 Outpatient nullFlavo [facility] Family 3 [id number] Memoria 20:00:00 04:59:59 r Medicine 18 catherine stevens 2018-05-19 2018-05-20 [place] [id number] Memoria 20:00:00 04:59:59 r Radiology 19 catherine stevens 2018-05-19 2018-05-19 Outpatient VISIT, MG MG [id number] 15:00:00 23:59:59 NURSE STRB 19 FERNANDO 2018-05-19 2018-05-19 [facility] [id number] 15:00:00 23:59:59 , Sree Payne Nicolas 2018-05-19 2018-05-19 Outpatient MHIE MHIE [id number] Memoria 15:00:00 15:00:00 19 catherine Jesus Alberto 2018-05-19 2018-05-19 Outpatient MHIE MHIE [id number] Memoria 15:00:00 15:00:00 18 catherine Jesus Alberto 2018-02-08 2018-02-09 Outpatient nullFlavo [facility] [id number] Memoria 15:00:00 04:59:59 r Internal 16 catherine Reeder 2018-02-08 2018-02-08 [facility] [id number] 10:00:00 23:59:59 , Sree Josefina Valenzuela 2018-02-08 2018-02-08 Outpatient MHIE MHIE [id number] Memoria 10:00:00 10:00:00 16 catherine Granda 2018-02-03 2018-02-03 Ambulatory nullFlavo [facility] [id number] Memoria 15:00:00 15:00:00 Pre-Reg r Internal 13 catherine Reeder 2018-02-03 2018-02-03 Outpatient MHIE MHIE [id number] Memoria 10:00:00 10:00:00 13 catherine Granda 2018-02-03 2018-02-03 [facility] [id number] 10:00:00 10:00:00 , Sree Valenzuela 2018-02-03 2018-02-03 [facility] [id number] 10:00:00 10:00:00 , Sree Valenzuela 2018-01-14 2018-01-15 Outpatient nullFlavo [facility] [id number] Memoria 16:00:00 04:59:59 r Internal 15 catherine Reeder 2018-01-14 2018-01-14 [facility] [id number] 11:00:00 23:59:59 Kim Eduardo 2018-01-14 2018-01-14 Outpatient [facility], [facility] [id number] 11:00:00 23:59:59 Kim 15 Jayce 2018-01-14 2018-01-14 Outpatient MHIE MHIE [id number] Memoria 11:00:00 11:00:00 15 catherine Granda 2018-01-07 2018-01-08 Outpatient nullFlavo [facility] Family 3 [id number] Memoria 13:30:00 04:59:59 r Medicine 14 catherine stevens 2018-01-07 2018-01-07 Outpatient VISIT, MHMG MHMG [id number] 08:30:00 23:59:59 NURSE STRB 14 XRAY 2018-01-07 2018-01-07 Outpatient MHIE MHIE [id number] Memoria 08:30:00 08:30:00 14 catherine Granda 2017-10-07 2017-10-08 Outpatient nullFlavo [facility] Family 3 [id number] Memoria 16:30:00 05:59:59 r Medicine 12 catherine stevens 2017-10-07 2017-10-08 Outpatient nullFlavo [facility] [id number] Memoria 16:00:00 05:59:59 r Internal 11 catherine Reeder 2017-10-07 2017-10-07 Outpatient VISIT, MHMG MHMG [id number] 10:30:00 23:59:59 NURSE STRB 12 XRAY 2017-10-07 2017-10-07 [id number] 10:00:00 23:59:59 , Sree Valenzuela 2017-10-07 2017-10-07 Outpatient [facility] [id number] [place] 11:37:00 23:59:00 , SREE [facility] 2017-10-07 2017-10-07 Outpatient MHIE MHIE [id number] Memoria 10:30:00 10:30:00 12 catherine Granda 2017-10-07 2017-10-07 Outpatient MHIE MHIE [id number] Memoria 10:00:00 10:00:00 11 catherine Granda 2017-08-03 2017-08-03 Outpatient MHIE MHIE [id number] Memoria 10:00:00 10:00:00 09 catherine Granda 2017-06-09 2017-06-09 Outpatient MHIE MHIE [id number] Memoria 13:30:00 13:30:00 10 catherine Granda 2017-03-30 2017-03-30 Outpatient IE IE [id number] Memoria 10:00:00 10:00:00 08 catherine Granda 2016-12-01 2016-12-01 Outpatient IE IE [id number] Memoria 10:00:00 10:00:00 04 catherine Granda 2016-08-27 2016-08-27 Outpatient IE IE [id number] Memoria 14:45:00 14:45:00 06 catherine Granda 2016-08-15 2016-08-15 Outpatient IE IE [id number] Memoria 15:00:00 15:00:00 07 catherine Granda 2016-08-06 2016-08-06 Outpatient [facility] [id number] Memoria 14:00:00 14:00:00 05 catherine Granda 2016-07-21 2016-07-21 Outpatient [facility] [id number] Memoria 13:30:00 13:30:00 03 catherine Granda 2016-04-16 2016-04-16 [facility] [id number] Memoria 09:00:00 09:00:00 02 catherine Granda 2015-12-05 2015-12-05 [facility] [id number] Memoria 08:30:00 08:30:00 01 catherine Granda 2015-08-08 2015-08-08 [facility]patient [facility] [id number] Memoria 08:30:00 08:30:00 00 catherine Granda Results Test Test Test Results Result Source Description Time Comments Comments CT HEAD WO 2021-01 No acute findings. Univer sity of CONTRAST -30 HISTORY:Dementia, vascular [facility] 20:48:3 suspected Memory Loss Mental Branch 8 [...] The extracranial tissues demonstrate no acute findings. [facility], Radiant Results Inft User - 02/01/2021 3:49 [...] CERVICAL 2020-12 No acute osseous findings. University of SPINE WO -18 Moderate degenerative Farshad as [...] facet arthropathy, most notablefrom C3-C4 through C6-C7. [facility], Radiant Results Inft User - 12/20/2020 11:16 [...] HISTORY: Follow-up. U niversity of TECHNIQUE: 64-Multidetector [facility] 14:34:[address] of Branch 1 [...] vertebral bodies noted, unchangedsince August 2019 study. [facility], Radiant Results Inft User - 12/06/2019 [...] study. XR CHEST 2 2019-10 [place] [address] unchanged masslike [facility] 14:54:2 thickening adjacent to Br anch 3 [...] its tip terminating inthe superior cavoatrial junction. [facility], Radiant Results Inft User - 10/31/2019 8:55 [...] Interpretation Comme nts MAGNESIUM (test code = 2553751290) 1.4 mg/dL 1.7-2.4 L Lab Interpretation (test code = 67757-4) Abnormal [facility] [id number] 21:31:00 Test Item Value Reference Range Interpretation Comments K (test code = 6345011249) 4.7 mmol/L 3.5-5 Lab Interpretation (test code = Normal 48792-0) [facility] [id number] 15:11:12HISTORY: Persistent elevated and worsening levels of [...] noted. Gallbladder is absent. Common hepatic duct is 5.0 mm. Proximal portion of the tail of pancreas showed 2.3 cm size cystic lesionwith thin incompleteseptum in it. In the mid body region, there is anirregular shaped hypoechoic lesion approximately 10mm in size. Pancreaticduct is not dilated. CONCLUSIONS:1. Normal size liver with mild hepatic steatosis suspected. No focal liverlesions.2. S/P cholecystectomy.3. Suspicious findings of 10 mm lesion inthe mid body of the pancreas and2.3 cm size cystic lesion in the proximal tail portion of the pancreas. Isuggest CT scan of abdomen without and with contrast, using pancreasprotocol. Note: Above reportis self-edited and computer generated errors may beoverlooked. Therefore, if you notice an error, I request you to bring it drew attention SHANTA. [facility], Radiant Results Inft User - 04/28/2019 10:11 AM CDTHISTORY: Persistent elevated and worsening levels of lipase.TECHNIQUE: [...] aortic aneurysm detected. Hepatic and portal venous syste mappear patent, with hepatopetal portal flow noted. Gallbladder is absent. Common hepatic duct is 5.0 mm.Proximal portion of the tail of pancreas showed 2.3 cm size cystic lesionwith thin incomplete septum in it. In the mid body region, there is anirregular shaped hypoechoic lesion approximately 10 mmin size. Pancreaticduct is not dilated.CONCLUSIONS:1. Normal size liver with mild hepatic steatosis suspected. No focal liverlesions.2. S/P cholecystectomy.3. Suspicious findings of 10 mm lesion in themid body of the pancreas and2.3 cm size cystic lesion in the proximal tail portion of the pancreas. Isuggest CT scan of abdomen without and with contrast, using pancreasprotocol.Note: Above report is self-edited and computer generated errors may beoverlooked. Therefore, if you notice an error, I request you to bring it drew attention SHANTA.[facility] WITH MANUAL [id number] 11:52:00 Test Item Value Reference Range Interpretation [...] code = VD) 32.0 ng/mL 30.0-100.0 T4 [id number] 11:08:00 Test Item Value Reference Range Interpretation Comments T4 FREE (test code = A91) 1.21 ng/dL 0.76-1.46 LIPID [id number] 11:08:00 Test Item Value Reference Range Interpretation Comments CHOLESTROL (test code = 44A) 173 mg/dL 140-200 TRIGLYCERI (test code = 42B) 106 mg/dL <=149 HDL (test code = 83D) 39.0 mg/dL 40.0-60.0 L LDL (test code = 34B) 120 mg/dL <=99 H CHL/HDL (test code = CHR) 4.4 0.0-3.4 H BASIC METABOLIC [id number] 10:56:00 Test Item Value Reference Range Interpretation [...] MORPH (test code = RBCMOR) NORMAL LIVER [id number] 12:50:00 Test Item Value Reference Range Interpretation [...] code = A57) 1.840 uIU/mL 0.358-3.740 LIPID [id number] 12:49:00 Test Item Value Reference Range Interpretation Comments CHOLESTROL (test code = 44A) 202 mg/dL 140-200 H TRIGLYCERI (test code = 42B) 125 mg/dL <=149 HDL (test code = 83D) 54.0 mg/dL 40.0-60.0 LDL (test code = 34B) 138 mg/dL <=99 H CHL/HDL (test code = CHR) 3.7 0.0-3.4 H BASIC METABOLIC [id number] 12:37:00 Test Item Value Reference Range Interpretation [...] MORPH (test code = RBCMOR) NORMAL LIVER [id number] 16:50:00 Test Item Value Reference Range Interpretation [...] code = 31A) 21 IU/L <=78 LIPID [id number] 16:44:00 Test Item Value Reference Range Interpretation Comments CHOLESTROL (test code = 44A) 210 mg/dL 140-200 H TRIGLYCERI (test code = 42B) 156 mg/dL <=149 H HDL (test code = 83D) 51.0 mg/dL 40.0-60.0 LDL (test code = 34B) 137 mg/dL <=99 H CHL/HDL (test code = CHR) 4.1 0.0-3.4 H BASIC METABOLIC [id number] 16:38:00 Test Item Value Reference Range Interpretation [...]
[2022-08-03 13:38] LABS: Absolute Lymphocytes (CBC) 1.5 K/uL (0.7-4.9); Hematocrit 45.2 % (36.0-45.0); Lymphocytes % 18.3 % (15.3-44.8); MCV 86.4 fL (80-100); MPV 6.9 fL (7.6-11.3); RBC Red Blood Cell Count 5.23 M/uL (3.86-4.86)
--- NOTE | 2022-08-03 13:43 | RAD REPORT ---
EXAM DESCRIPTION: [facility] Single View08/03/2022 1:29 pm CLINICAL HISTORY: Choking COMPARISON: 2020 FINDINGS: Medial left upper lobe opacity appears mildly more prominent than on the prior exam. Left lung volume loss. Right lung appears clear of acute infiltrate. Heart is normal size. Central venous line place IMPRESSION: Medial left upper lobe opacity mildly more prominent than on the prior exam. This may re present progressive scarring, pneumonitis or mass.
[2022-08-03 13:55] LABS: Troponin High Sensitivity 13.7 pg/mL (<58.9)
[2022-08-03 15:09] LABS: SARS-CoV-2 Antigen Rapid Res Negative (Negative)
--- NOTE | 2022-08-03 16:28 | EDPHYS ---
Physician Documentation [facility] Name: Maluo Bruno Age: 86 yrs Sex: Female : 1935 Arrival Date: 08/03/2022 Time: 13:04 Bed 3 Private MD: ED Physician Gordon Ribeiro HPI: 08/03 18:55 This 86 yrs old Female presents to ER via EMS with complaints of Choked/Choking. kdr 18:55 Patient was eating her lunch today when she suddenly gagged and possibly aspirated some kdr of the contents of her lunch. EMS was called and she was noted to be tachypneic and coughing. Her saturations were diminished and 87% on room air on arrival in the ED.. Onset: The symptoms/episode began/occurred suddenly, just prior to arrival. Severity of symptoms: At their worst the symptoms were mild moderate in the emergency department the symptoms are unchanged. The patient has not experienced similar symptoms in the past. The patient has not recently seen a physician. Historical: - Allergies: 13:16 No Known Allergies; ss - PMHx: 13:16 Depressive disorder; Hyperlipidemia; Alzheimers; ss - Social history:: Smoking status: . ROS: 18:55 Constitutional: Negative for fever, chills, and weight loss, Eyes: Negative for injury, kdr pain, redness, and discharge, Neck: Negative for injury, pain, and swelling, Cardiovascular: Negative for chest pain, palpitations, and edema, Abdomen/GI: Negative for abdominal pain, nausea, vomiting, diarrhea, and constipation, Back: Negative for injury and pain, : Negative for injury, bleeding, discharge, and swelling, MS/Extremity: Negative for injury and deformity, Skin: Negative for injury, rash, and discoloration, Neuro: Negative for headache, weakness, numbness, tingling, and seizure activity. Psych: Negative for depression, anxiety, suicide ideation, homicidal ideation, and hallucinations, Allergy/Immunology: Negative for hives, rash, and allergies, Endocrine: Negative for neck swelling, polydipsia, polyuria, polyphagia, and marked weight changes, Hematologic/Lymphatic: Negative for swollen nodes, abnormal bleeding, and unusual bruising. 18:55 Respiratory: Positive for cough, dyspnea on exertion, shortness of breath, wheezing, Negative for hemoptysis, pleurisy. Exam: 18:55 Constitutional: This is a well developed, well nourished patient who is awake, alert, kdr and in no acute distress. Head/Face: Normocephalic, atraumatic. Eyes: Pupils equal round and reactive to light, extra-ocular motions intact. Lids and lashes normal. Conjunctiva and sclera are non-icteric and not injected. Cornea within normal limits. Periorbital areas with no swelling, redness, or edema. Neck: Trachea midline, no thyromegaly or masses palpated, and no cervical lymphadenopathy. Supple, full range of motion without nuchal rigidity, or vertebral point tenderness. No Meningismus. Chest/axilla: Normal chest wall appearance and motion. Nontender with no deformity. No lesions are appreciated. Cardiovascular: Regular rate and rhythm with a normal S1 and S2. No gallops, murmurs, or rubs. Normal PMI, no JVD. No pulse deficits. Abdomen/GI: Soft, non-tender, with normal bowel sounds. No distension or tympany. No guarding or rebound. No evidence of tenderness throughout. Back: No spinal tenderness. No costovertebral tenderness. Full range of motion. Skin: Warm, dry with normal turgor. Normal color with no rashes, no lesions, and no evidence of cellulitis. MS/ Extremity: Pulses equal, no cyanosis. Neurovascular intact. Full, normal range of motion. Neuro: Awake and alert, GCS 15, oriented to person, place, time, and situation. Cranial nerves II-XII grossly intact. Motor strength 5/5 in all extremities. Sensory grossly intact. Cerebellar exam normal. Normal gait. Psych: Awake, alert, with orientation to person, place and time. Behavior, mood, and affect are within normal limits. 18:55 Respiratory: mild respiratory distress is noted, moderate respiratory distress is noted, Respirations: tachypnea, that is moderate, Breath sounds: rales, decreased breath sounds, that are moderate, are heard in the right posterior upper lobe, right posterior middle lobe and right posterior lower lobe. Vital Signs: 13:08 BP 166 / 93; Pulse 97; Resp 30; Pulse Ox 87% on R/A; ss 13:13 Temp 98.2(TE); ss 13:13 Pulse Ox 94% on Non-rebreather mask; ss 13:17 Pulse 90; Resp 23; Pulse Ox 100% on Nebulizer Mask; ss 14:09 BP 168 / 78; Pulse 67; Resp 20; Pulse Ox 100% on 15% Non-rebreather mask; mb9 14:30 BP 165 / 79; Pulse 73; Resp 20; Pulse Ox 99% on 15% Non-rebreather mask; mb9 15:25 BP 177 / 97; Pulse 84; Resp 20; Pulse Ox 98% on 15% Non-rebreather mask; mb9 16:30 BP 168 / 84; Pulse 74; Resp 20; Pulse Ox 100% on 15% Non-rebreather mask; mb9 18:29 BP 126 / 52; Pulse 71; Resp 22; Pulse Ox 99% on R/A; mb9 Colin Coma Score: 13:08 Eye Response: spontaneous(4). Verbal Response: oriented(5). Motor Response: obeys ss commands(6). Total: 15. Trauma Score (Adult): 13:08 Eye Response: spontaneous(1); Verbal Response: oriented(1); Motor Response: obeys ss commands(2); Systolic BP: > 89 mm Hg(4); Respiratory Rate: 10 to 29 per min(4); Colin Score: 15; Trauma Score: 12 MDM: 16:27 Patient medically screened. kdr 18:55 Data reviewed: vital signs, nurses notes, lab test result(s), radiologic studies. kdr Counseling: I had a detailed discussion with the patient and/or guardian regarding: the historical points, exam findings, and any diagnostic results supporting the discharge/admit diagnosis, lab results, radiology results, the need to transfer to another facility. ED course: Patient slowly improved in the ED. She remained on the rebreather and was maintaining a saturation of 99 to 100%. Her coughing lessened over time and we were able to transition her to 4 L per nasal cannula with 95% saturation. At time of transfer the patient appeared much improved however she was difficult to fully have confidence in her responses given her underlying dementia. I had attempted to contact our loader unloader, Dr. Rucker, however he was out of town and unavailable. I did speak with Dr. Purvis who represented anesthesia and he came to the ED to evaluate whether he might be of any help in this circumstance. He stood by while we made other arrangements and while the patient improved. Subsequently with the unavailability of Dr. Rucker and the acceptance of transfer to another facility, Dr. Purvis retired from the ED. Patient continued to be stable in the ED and was transferred in good condition.. 08/03 13:26 Order name: Basic Metabolic Panel; Complete Time: 14:36 ss 08/03 13:26 Order name: CBC with Diff; Complete Time: 14:36 ss 08/03 13:06 Order name: CXR XRAY; Complete Time: 14:36 eb 08/03 13:26 Order name: Troponin HS; Complete Time: 14:36 ss 08/03 14:37 Order name: SARS RAPID; Complete Time: 16:08 eb 08/03 13:24 Order name: IV Saline Lock; Complete Time: 13:24 ss 08/03 13:24 Order name: EKG - Nurse/Tech; Complete Time: 13:24 ss 08/03 13:26 Order name: EKG; Complete Time: 13:27 ss 08/03 16:17 Order name: CT Chest Wo Con kdr 08/03 16:21 Order name: Thorax Wo Con; Complete Time: 17:10 EDMS 08/03 13:26 Order name: Cardiac monitoring; Complete Time: 13:27 ss 08/03 13:26 Order name: Labs collected and sent; Complete Time: 13:27 ss 08/03 13:26 Order name: O2 Per Protocol; Complete Time: 13:27 ss 08/03 13:26 Order name: O2 Sat Monitoring; Complete Time: 13:27 ss Administered Medications: 17:26 Drug: Ampicillin-Sulbactam Sodium 1.5 grams Route: IVPB; Infused Over: 30 mins; Site: mb9 left forearm; 18:00 Follow up: IV Status: Completed infusion mb9 21:38 Drug: morphine 2 mg Route: IVP; Infused Over: 4 mins; Site: left forearm; ll3 08/04 00:35 Follow up: Response: No adverse reaction; Marked relief of symptoms; Pain is decreased ll3 08/03 21:38 Drug: Zofran (Ondansetron) 4 mg Route: IVP; Site: left forearm; ll3 08/04 00:35 Follow up: Response: No adverse reaction ll3 Disposition Summary: 08/03/22 16:27 Transfer Ordered Transfer Location: [facility] kdr Reason: Higher level of care kdr Condition: Stable kdr Problem: new kdr Symptoms: have improved kdr Accepting Physician: Mindi(08/04/22 00:41) shamar Diagnosis - Aspiratioin of food contents kdr - Dyspnea kdr - Shortness of breath kdr Forms: - Medication Reconciliation Form kdr - SBAR form kdr Signatures: Dispatcher [employer] EDDC Dayton Casey MD MD kdr Yael Moore RN RN ss Nadia Duque RN RN 3 Katt Louis RN RN ke1 Alessia Taylor RN RN mb9 Corrections: (The following items were deleted from the chart) 08/03 13:27 13:07 Chest Single View+RAD.RAD.BRZ ordered. [facility] 08/04 00:41 08/03 16:27 A kdr ke1
--- NOTE | 2022-08-03 16:28 | ER ---
Nurse's Notes [facility] Name: Malou Bruno Age: 86 yrs Sex: Female : 1935 Arrival Date: 08/03/2022 Time: 13:04 Bed 3 Private MD: Diagnosis: Aspiratioin of food contents;Dyspnea;Shortness of breath Presentation: 08/03 13:14 Acuity: DUSTIN 1 ss 13:14 Method Of Arrival: EMS: [facility] ss 13:14 Chief complaint: EMS states: Pt was in her room eating when she reportedly choked on ss unknown food. Pt is awake, alert, talking and coughing. Coronavirus screen: Client denies travel out of the [place] in the last 14 days. Ebola Screen: Patient denies exposure to infectious person. Patient denies travel to an Ebola-affected area in the 21 days before illness onset. Initial Sepsis Screen: Does the patient meet any 2 criteria? No. Patient's initial sepsis screen is negative. Does the patient have a suspected source of infection? No. Patient's initial sepsis screen is negative. Risk Assessment: Do you want to hurt yourself or someone else? Patient reports no desire to harm self or others. Onset of symptoms was August 03, 2022. Triage Assessment: 13:15 General: Appears distressed, uncomfortable, Behavior is anxious. Neuro: Level of mb9 Consciousness is awake, alert, obeys commands, Oriented to person, place, time, situation, Appropriate for age. 13:15 Cardiovascular: Heart tones S1 S2 present Rhythm is sinus rhythm. Respiratory: Airway mb9 partially obstructed. pt able to speak and is intermittently coughing Respiratory effort is labored. GI: No signs and/or symptoms were reported involving the gastrointestinal system. : No signs and/or symptoms were reported regarding the genitourinary system. Derm: Skin is pink, warm \\T\\ dry. Musculoskeletal: Range of motion: intact in all extremities. Historical: - Allergies: 13:16 No Known Allergies; ss - PMHx: 13:16 Depressive disorder; Hyperlipidemia; Alzheimers; ss - Social history:: Smoking status: . Screenin:08 Abuse screen: Denies threats or abuse. Denies injuries from another. Tuberculosis ss screening: Never had TB. 08/04 00:34 Nutritional screening: No deficits noted. Fall Risk No fall in past 12 months (0 pts). ll3 Secondary diagnosis (15 points) Alzheimer's, IV access (20 points). Ambulatory Aid- None/Bed Rest/Nurse Assist (0 pts). Gait- Weak (10 pts.). Mental Status- Overestimates/Forgets Limitations (15 pts.). Total Delarosa Fall Scale indicates High Risk Score (45 or more points). Fall prevention measures have been instituted. Side Rails Up X 2 Placed Close to Nursing Station Family Present and informed to notify staff if the need to leave the bedside As available patient and family educated on Fall Prevention Program and Strategies. Assessment: 08/03 13:08 Reassessment: XRAY at bedside. 13:15 General: Appears distressed, Behavior is anxious. Pain: Complains of pain in right side mb9 of chest Quality of pain is described as aching, Pain began suddenly, Aggravated by deep breathing. Neuro: Level of Consciousness is awake, alert, obeys commands, Oriented to person, place, time, situation. Cardiovascular: Heart tones S1 S2 present Rhythm is sinus rhythm. Respiratory: Airway partially obstructed. Pt able to speak and is intermittently coughing Respiratory effort is labored. GI: Abdomen is flat. : No signs and/or symptoms were reported regarding the genitourinary system. 13:15 Respiratory: pt in tripod position and coughing. Derm: Skin is pink, warm \\T\\ dry. mb9 Musculoskeletal: Range of motion: intact in all extremities. 13:15 Reassessment: Pts oxygen decreased to 86% on room air. pt placed on 15 L/min via mb9 non-rebreather. pt now 99% on 15 L/min via non-rebreather. 13:35 Reassessment: Anesthesiology at bedside. mb9 13:49 Reassessment: OLIMPIA Merida, contacted [facility] to discuss what pt was eating when she mb9 began to choke. They stated "chicken casserole and corn bread.". 14:10 Neuro: Level of Consciousness is awake, alert, obeys commands, Oriented to person, mb9 place, time, situation. Cardiovascular: Heart tones S1 S2 present. Respiratory: Airway is patent Respiratory effort is even, unlabored, Respiratory pattern is regular, symmetrical, pt intermittently coughing and clearing throat. pt states "it hurts on my right side of chest when I take a deep breath". 14:18 Reassessment: [id number] consent for bronchoscopy obtained from pt's son, Wia, by aa5 Dr. Casey, witnessed by me and Brandon Aggarwal RN. 14:18 Reassessment:. Pain: Denies pain. Neuro: Level of Consciousness is awake, alert, obeys mb9 commands, Oriented to person, place, time, situation. Cardiovascular: Heart tones S1 S2 present Rhythm is sinus rhythm. Respiratory: Airway is patent Respiratory effort is even, unlabored. 14:18 Derm: Skin is pink, warm \\T\\ dry. mb9 15:25 General: Appears comfortable, Behavior is calm, cooperative. Pain: Denies pain. Pain: mb9 Denies pain. Neuro: Level of Consciousness is awake, alert, obeys commands, Oriented to person, place, time, situation. Cardiovascular: Rhythm is sinus rhythm. Respiratory: Airway is patent Respiratory effort is even, unlabored, Respiratory pattern is regular, pt intermittently coughing. Derm: Skin is pink, warm \\T\\ dry. 16:30 Pain: Denies pain. Neuro: Level of Consciousness is awake, alert, obeys commands, mb9 Oriented to person, place, time, situation. Cardiovascular: Heart tones S1 S2 present Rhythm is sinus rhythm. Respiratory: Airway is patent Respiratory effort is even, unlabored, Respiratory pattern is regular, symmetrical, pt intermittently coughing. Derm: Skin is pink, warm \\T\\ dry. 16:33 Reassessment: pt taken to CT. mb9 17:14 Reassessment: placed pt on 2 L/min via nasal cannula. Pt tolerated well. Oxygen now 98%.mb9 19:10 Reassessment:. Neuro: Level of Consciousness is awake, alert, obeys commands, Oriented mb9 to person, place, time, situation. Cardiovascular: Rhythm is sinus rhythm. Respiratory: Airway is patent Respiratory effort is even, unlabored, Respiratory pattern is regular, symmetrical. Derm: Skin is pink, warm \\T\\ dry. 19:13 Reassessment: report given to OLIMPIA Bolivar. mb9 19:27 Reassessment: Assisted for toileting. ke1 23:40 Reassessment: Voicemail left to SON at [phone] to notify of transfer. ke1 Vital Signs: 13:08 BP 166 / 93; Pulse 97; Resp 30; Pulse Ox 87% on R/A; ss 13:13 Temp 98.2(TE); ss 13:13 Pulse Ox 94% on Non-rebreather mask; ss 13:17 Pulse 90; Resp 23; Pulse Ox 100% on Nebulizer Mask; ss 14:09 BP 168 / 78; Pulse 67; Resp 20; Pulse Ox 100% on 15% Non-rebreather mask; mb9 14:30 BP 165 / 79; Pulse 73; Resp 20; Pulse Ox 99% on 15% Non-rebreather mask; mb9 15:25 BP 177 / 97; Pulse 84; Resp 20; Pulse Ox 98% on 15% Non-rebreather mask; mb9 16:30 BP 168 / 84; Pulse 74; Resp 20; Pulse Ox 100% on 15% Non-rebreather mask; mb9 18:29 BP 126 / 52; Pulse 71; Resp 22; Pulse Ox 99% on R/A; mb9 Lee Coma Score: 13:08 Eye Response: spontaneous(4). Verbal Response: oriented(5). Motor Response: obeys ss commands(6). Total: 15. Trauma Score (Adult): 13:08 Eye Response: spontaneous(1); Verbal Response: oriented(1); Motor Response: obeys ss commands(2); Systolic BP: > 89 mm Hg(4); Respiratory Rate: 10 to 29 per min(4); Colin Score: 15; Trauma Score: 12 ED Course: 13:04 Patient arrived in ED. mb9 13:08 Patient has correct armband on for positive identification. Client placed on continuous ss cardiac and pulse oximetry monitoring. NIBP monitoring applied. 13:14 Triage completed. ss 13:14 Arm band placed on right wrist. ss 13:15 Dayton Casey MD is Attending Physician. kdr 13:23 EKG done, by ED staff, reviewed by Dayton Casey MD. Inserted saline lock: 22 gauge in ss left forearm, using aseptic technique. Blood collected. done by OLIMPIA Menard. 13:25 Fuad Bergman RN is Primary Nurse. jl7 13:31 CXR XRAY In Process Unspecified. EDMS 14:36 initiated a transfer with Devendra Benitez Rn from the [facility]. eb 16:44 Thorax Wo Con In Process Unspecified. EDMS 16:58 connected the hospitalist [employer] hazmat tanker driver for [facility] with Dr. Casey for patient eb transfer consultation. 22:43 Attending Physician role handed off by Dayton Casey MD cha 22:43 Gordon Ribeiro MD is Attending Physician. enriqueta 08/04 00:34 No provider procedures requiring assistance completed. Patient transferred, IV remains ll3 in place. Administered Medications: 08/03 17:26 Drug: Ampicillin-Sulbactam Sodium 1.5 grams Route: IVPB; Infused Over: 30 mins; Site: mb9 left forearm; 18:00 Follow up: IV Status: Completed infusion 9 21:38 Drug: morphine 2 mg Route: IVP; Infused Over: 4 mins; Site: left forearm; ll3 08/04 00:35 Follow up: Response: No adverse reaction; Marked relief of symptoms; Pain is decreased ll3 08/03 21:38 Drug: Zofran (Ondansetron) 4 mg Route: IVP; Site: left forearm; ll3 08/04 00:35 Follow up: Response: No adverse reaction ll3 Medication: 00:35 VIS not applicable for this client. ll3 Outcome: 08/03 16:27 ER care complete, transfer ordered by . kdr 08/04 00:34 Transferred by ground EMS to [facility], Transfer form completed. ll3 X-rays sent w/ patient. Condition: stable Instructed on the need for transfer, Demonstrated understanding of instructions. 00:41 Patient left the ED. ke1 Signatures: Dispatcher [employer] EDMS Gordon Ribeiro MD MD cha Rittger, Kevin, MD MD kdr Calderon, Audri RN RN aa5 Yael Moore RN RN ss Fuad Bergman RN RN [id number] Kerri Barrios [place], RN RN ll3 Katt Louis RN RN ke1 Alessia Taylor, RN RN mb9 Corrections: (The following items were deleted from the chart) 08/03 13:13 13:08 BP 166 / 93; Pulse 97bpm; Pulse Ox 87% RA; ss ss 13:47 13:15 EENT: mb9 mb9 14:29 13:15 Respiratory: Airway partially obstructed Breath sounds are diminished in right mb9 middle lobe mb9 14:29 13:15 Respiratory: Respiratory effort is labored, mb9 mb9 14:29 13:15 Respiratory: pt in tripod position and coughing the patient has severe shortness mb9 of breath mb9 14:29 14:21 Reassessment: Sailaja DOAN and Alessia Guillory RN, witnessed Dr. Casey getting consent mb9 for procedure from pts son Wai. mb9 15:50 15:27 administrative approval given by Vicki Joaquin/ patient has been accepted to [facility] rm [id number]/ Dr. Paris Barrios has accepted the patient in transfer/ report to be called to [phone]
--- NOTE | 2022-08-03 17:06 | RAD REPORT ---
EXAM DESCRIPTION: CT - Thorax Wo Con - 08/03/2022 4:43 pm CLINICAL HISTORY: Aspiration, shortness of breath COMPARISON: Chest x-ray August 03, 2022 TECHNIQUE: Computed axial tomography of the chest was obtained. Contrast was not requested. All CT scans are performed using dose optimization technique as appropriate and may include automated exposure control or mA/KV adjustment according to patient size. FINDINGS: The evaluation of mediastinum, addie and vessels is limited secondary to lack of IV contras t administration. The medial left upper lobe opacity probably scarring. Mild right lower lobe consolidation. Mild patchy ground-glass opacities right lung. No mediastinal or hilar lymphadenopathy is seen. A pleural effusion is not present. No pericardial effusion IMPRESSION: Mild right lower lobe consolidation could represent pneumonia or aspiration pneumonitis Left upper lobe opacity probably scarring
[2022-08-03] MEDS ORDERED: AMPICILLIN/SULBACT 1.5GM VIAL ONE (17:13)
[2022-08-03] MEDS ORDERED: NA CHLORIDE 0.9% 100 ML IV ONE (17:13)
[2022-08-03] MEDS ORDERED: AMIODARONE HCL 150 MG/3 ML INJ IV ONE ×2 (21:12→21:19)
[2022-08-03] MEDS ORDERED: AMIODARONE IN DEXTROSE,ISO-OSM 0 MG/0 ML BAG IV ONE (21:18)
[2022-08-03] MEDS ORDERED: MORPHINE 2 MG/ML SYR ONE (21:32)
[2022-08-03] MEDS ORDERED: ONDANSETRON 4 MG/2 ML VIAL ONE (21:32)
[2022-08-04 02:51] VITALS: TEMP 98.2
[2022-08-04 03:01] VITALS: BP 126/52; O2SAT 99
--- NOTE | 2022-08-04 15:59 | EKG ---
Test Date: 2022-08-03 Test Time: 13:13:40 Launch Engineer: MB MEASUREMENT RESULTS: Intervals: Rate: 95 IA: 206 QRSD: 108 QT: 386 QTc: 485 [place]: P: 67 IA: 206 QRS: 40 T: 61 INTERPRETIVE STATEMENTS: Normal sinus rhythm Cannot rule out Anterior infarct, age undetermined Abnormal ECG Compared to ECG 02/27/2003 18:33:00 Myocardial infarct finding now present Electronically Signed On 08-04-22 15:56:41 CDT by Bryan Sepulveda
== END 2022-08-04 00:41 | disposition short-term general hospital (02) ==
LOC: ER 13:03
DX: T17.928A Food in respiratory tract, part unspecified causing other injury, initial encounter (principal); R06.00 Dyspnea, unspecified; R06.02 Shortness of breath; G30.9 Alzheimer's disease, unspecified; F02.80 Dementia in other diseases classified elsewhere, unspecified severity, without behavioral disturbance, psychotic disturbance, mood disturbance, and anxiety; Z20.822 Contact with and (suspected) exposure to COVID-19
CPT/HCPCS: 96365; 93005; 85025; 80048; 36415; 84484; 71250; 71045; 96375; 99291; 99292; 87811; J0282 ×2; J2270; J0295; J2405